=== PATIENT | female | born 1995 | race Caucasian/White ===

== ENCOUNTER 2016-10-29 07:42 | Emergency (ER) | payer OTHER ==
[2016-10-29] MEDS ORDERED: IPRATROPIUM-ALBUTEROL 3 ML NEB INHALATION STA (08:19)
--- NOTE | 2016-10-29 08:21 | ED ---
General Adult HPI - General Chief complaint: Shortness of Breath Stated complaint: SOB Time Seen by Provider: 10/29/16 08:08 Source: patient, RN notes reviewed Mode of arrival: ambulatory Limitations: no limitations - History of Present Illness Initial comments: Patient is a 21-year-old female presents to the emergency room for evaluation of cough. Patient states symptoms began yesterday. Patient states this morning while she was at work she was still not feeling well, so she took a leftover antibiotic that she had in the past. Patient states the antibiotic did not help so she came here. Patient states after she coughs she feels short of breath. Patient states she is coughing up mucus. Patient does state she has a history of asthma. Patient denies currently smoking. Patient denies fevers or chills. Patient denies headache or dizziness. Patient does admit to sinus congestion minor throat pain and bilateral ear pain. Patient denies chest pain. Patient denies nausea or vomiting. Patient denies abdominal pain. - Related Data Previous Rx's Medication Instructions Recorded Fluticasone Propionate [Flonase 1 spray EA NOSTRIL DAILY 7 Days 10/29/16 Allergy Relief] guaiFENesin [Mucinex] 1,200 mg PO BID 7 Days 10/29/16 predniSONE 40 mg PO DAILY 5 Days 10/29/16 Allergies Allergy/AdvReac Type Severity Reaction Status Date / Time codeine Allergy Unknown Verified 10/29/16 08:29 erythromycin base Allergy Rash/Hives Verified 10/29/16 08:29 Penicillins Allergy Rash/Hives Verified 10/29/16 08:29 sulfamethoxazole Allergy Rash/Hives Verified 10/29/16 08:29 [From Bactrim] trimethoprim [From Bactrim] Allergy Rash/Hives Verified 10/29/16 08:29 Review of Systems ROS Statement: Those systems with pertinent positive or pertinent negative responses have been documented in the HPI. ROS Other: All systems not noted in ROS Statement are negative. Past Medical History Past Medical History: Asthma Additional Past Medical History / Comment(s): migraines History of Any Multi-Drug Resistant Organisms: None Reported Past Surgical History: No Surgical Hx Reported Past Psychological History: Anxiety Smoking Status: Former smoker Past Alcohol Use History: Occasional Past Drug Use History: None Reported General Exam - General Exam Comments Initial Comments: Sitting in exam room, no respiratory distress. Limitations: no limitations General appearance: alert, in no apparent distress Head exam: Present: atraumatic, normocephalic, normal inspection Eye exam: Present: normal appearance, PERRL, EOMI Pupils: Present: normal accommodation ENT exam: Present: normal exam, normal oropharynx, mucous membranes moist, TM's normal bilaterally, normal external ear exam Neck exam: Present: normal inspection, full ROM. Absent: tenderness, lymphadenopathy Respiratory exam: Present: normal lung sounds bilaterally. Absent: respiratory distress Cardiovascular Exam: Present: regular rate, normal rhythm, normal heart sounds Extremities exam: Present: normal inspection Back exam: Present: normal inspection Neurological exam: Present: alert, oriented X3, CN II-XII intact, normal gait Psychiatric exam: Present: normal affect, normal mood Skin exam: Present: warm, dry, intact, normal color. Absent: rash Course Vital Signs 10/29/16 10/29/16 10/29/16 07:43 08:33 08:39 Temperature 97.5 F L Pulse Rate 77 80 84 Respiratory 20 Rate Blood Pressure 150/70 O2 Sat by Pulse 100 Oximetry 10/29/16 09:20 Temperature 97.8 F Pulse Rate 73 Respiratory 18 Rate Blood Pressure 119/75 O2 Sat by Pulse 98 Oximetry Medical Decision Making - Medical Decision Making Patient is a 21-year-old female presents emergency room for evaluation and sinus congestion and cough. Chest x-ray shows no acute findings. Will send patient home on prednisone, Mucinex and Flonase as needed. Advised patient to follow-up with primary care provider if symptoms are not improving in 7 days. Patient states she understands everything that was discussed with her. Return parameters discussed. Case discussed Dr. Lyles. - Radiology Data Radiology results: report reviewed, image reviewed Disposition Clinical Impression: Bronchitis Disposition: HOME SELF-CARE Condition: Good Instructions: Acute Bronchitis (ED) Additional Instructions: Take medications as directed. Please follow up with primary care provider 24- 48 hours. If any new symptom arises or symptoms worsen, return to ER as soon as possible. Prescriptions: Fluticasone Propionate [Flonase Allergy Relief] 1 spray EA NOSTRIL DAILY 7 Days guaiFENesin [Mucinex] 1,200 mg PO BID 7 Days predniSONE 40 mg PO DAILY 5 Days Referrals: Eugene Romero MD [Primary Care Provider] - 1-2 days Time of Disposition: 09:08
--- NOTE | 2016-10-29 08:57 | XR ---
EXAMINATION TYPE: XR chest 2V DATE OF EXAM: 10/29/2016 8:50 AM CLINICAL HISTORY: Chest pain per order. Cough and shortness of breath per patient. TECHNIQUE: Frontal and lateral views of the chest are obtained. COMPARISON: Chest x-ray May 03, 2016 FINDINGS: There is no focal air space opacity, pleural effusion, or pneumothorax seen. The cardiac silhouette size is within normal limits. The osseous structures are intact. IMPRESSION: No acute cardiopulmonary process.
[2016-10-29 09:21] VITALS: BP 119/75; PULSE 73; RESP 18; TEMP 97.8
== END 2016-10-29 09:21 | disposition home or self-care (01) ==
LOC: EC 07:42
DX: J40 Bronchitis, not specified as acute or chronic (principal); Z88.0 Allergy status to penicillin; Z88.1 Allergy status to other antibiotic agents; Z88.2 Allergy status to sulfonamides; Z88.5 Allergy status to narcotic agent; Z87.891 Personal history of nicotine dependence
CPT/HCPCS: 71020; 94640; 99285

== ENCOUNTER → 2017-10-14 | Outpatient (CLI) | payer OTHER | END | disposition home or self-care (01) | LOC: LABWHC1 17:06 | PROVIDERS: ATTEND Obstetrics & Gynecology | DX: Z34.80 Encounter for supervision of other normal pregnancy, unspecified trimester (principal); Z3A.00 Weeks of gestation of pregnancy not specified | CPT/HCPCS: 36415; 84702; 86850; 86900; 86901 ==

== ENCOUNTER → 2017-10-22 | Outpatient (CLI) | payer OTHER ==
--- NOTE | 2017-10-22 15:28 | US ---
EXAMINATION TYPE: Transabdominal DATE OF EXAM: 09/02/17 COMPARISON: NONE CLINICAL HISTORY: Z36 Confirm [id number]; vaginal spotting EXAM PERFORMED: Transabdominal (TA) EXAM MEASUREMENTS: GESTATIONAL AGE / DATING Physician Established: Not yet established Dates by LMP: (11 weeks/0 days) EDC: 05/13/2018 Dates by First Scan: No previous; this is first scan Dates by Current Scan for: (8 weeks/6 days) EDC: 05/28/2018 MATERNAL ANATOMY Uterus: 11.5 x 7.3 x 6.0cm Right Ovary: 3.3 x 2.5 x 2.8cm Left Ovary: 2.4 x 1.9 x 1.8cm Post CDS / Adnexa: wnl Presence of free fluid: no Presence of corpus luteal cyst: may be in right ovary with small amount of peripheral ring of color f low = 2.9 x 1.9 x 1.9cm Presence of subchorionic bleed: no GESTATION / SURVEY CRL: 2.2cm (8 weeks/6 days) Yolk Sac (normal less than 6mm): 3.5mm Heart Rate: 178 bpm Rhythm: Normal IUP: Viable IUP Date of LMP: patient believed LMP was 08/06/2017 Beta HcG (if available): na IMPRESSION: Single, live IUP,8 weeks/6 days, EDC: 05/28/2018, [id number].
== END | disposition home or self-care (01) ==
LOC: RADUSWWP 14:12
PROVIDERS: ATTEND Obstetrics & Gynecology
DX: Z36.89 Encounter for other specified antenatal screening (principal); Z3A.08 8 weeks gestation of pregnancy
CPT/HCPCS: 76801

== ENCOUNTER → 2018-02-24 | Outpatient (CLI) | payer OTHER ==
[2018-02-24 10:36] LABS: HCT 32.6 % (34.0-46.0); HGB 11.1 gm/dL (11.4-16.0); MCH 29.7 pg (25.0-35.0); MCHC 34.1 g/dL (31.0-37.0); MCV 87.1 fL (80.0-100.0); Mean Platelet Volume 7.1; Platelet Count 288 k/uL (150-450); RBC 3.74 m/uL (3.80-5.40); WBC 11.4 k/uL (3.8-10.6)
== END | disposition home or self-care (01) ==
LOC: LABWHC1 09:04
PROVIDERS: ATTEND Obstetrics & Gynecology
DX: Z34.82 Encounter for supervision of other normal pregnancy, second trimester (principal)
CPT/HCPCS: 36415; 82950; 85027

== ENCOUNTER → 2018-03-02 | Outpatient (CLI) | payer OTHER ==
[2018-03-02 13:34] LABS: Glucose 3 Hour, Gest 76 mg/dL
== END ==
LOC: LABWHC1 08:30
PROVIDERS: ATTEND Obstetrics & Gynecology
DX: O24.419 Gestational diabetes mellitus in pregnancy, unspecified control (principal); Z3A.00 Weeks of gestation of pregnancy not specified
CPT/HCPCS: 36415; 82951; 82952

== ENCOUNTER 2018-05-07 16:34 | Inpatient (IN) | payer OTHER ==
[2018-05-07] MEDS ORDERED: LIDOCAINE 0.5% (PF) 5 MG/ML (50 ML SDV) SQ PRN (17:16)
[2018-05-07] MEDS ORDERED: METHYLERGONOVINE 0.2 MG/ML 1 ML AMP IM PRN (17:16)
[2018-05-07] MEDS ORDERED: CARBOPROST TROMETHAMINE 250 MCG/ML 1 ML AMP IM PRN (17:16)
[2018-05-07] MEDS ORDERED: OXYTOCIN 10 UNIT/ML 1 ML VIAL IM PRN (17:16)
[2018-05-07] MEDS ORDERED: TERBUTALINE 1 MG/ML VIAL SQ PRN (17:16)
[2018-05-07] MEDS ORDERED: OXYTOCIN 20 UNITS/1000 ML NS 1,000 ML IV SCH (17:30)
[2018-05-07] MEDS: LACTATED RINGERS 1,000 ML IV SCH ×2 (17:43→21:59)
[2018-05-07 17:48] LABS: Appearance,Urine Clear (Clear); Bilirubin,Urine Negative (Negative); Blood,Urine Negative (Negative); Color,Urine Yellow; Glucose,Urine (UA) Negative (Negative); Ketones,Urine Negative (Negative); Leukocyte Esterase,Urine Negative (Negative); Nitrite,Urine Negative (Negative); PH, Urine 6.5 (5.0-8.0); Protein,Urine Trace (Negative); Specific Gravity,Urine 1.013 (1.001-1.035); Urobilinogen,Urine <2.0 mg/dL (<2.0)
--- NOTE | 2018-05-07 17:52 | P.HPOB ---
History of Present Illness H&P Date: 05/07/18 Chief Complaint: Gestational hypertension. This patient is a pleasant 23-year-old 2 para 1 female estimated date of confinement 05/28/2018 estimated gestational age 37-0/7 weeks who presented to my office today for routine visit was found to have elevated blood pressure 142/96 and 120/90. Patient's history is such that her previous with Dr. Hernandez she developed gestational hypertension at 40 weeks. Patient has no other history of hypertension. Patient has had a headache on and off first couple weeks otherwise without symptomatology. Patient's care otherwise has been uncomplicated. Review of Systems Constitutional: Reports chronic headaches Genitourinary: Reports Menstruation: Reports amenorrhea Past Medical History Past Medical History: Asthma Additional Past Medical History / Comment(s): migraines History of Any Multi-Drug Resistant Organisms: None Reported Past Surgical History: No Surgical Hx Reported Past Anesthesia/Blood Transfusion Reactions: No Reported Reaction Past Psychological History: Anxiety Smoking Status: Former smoker Past Alcohol Use History: None Reported Past Drug Use History: None Reported Medications and Allergies Home Medications Medication Instructions Recorded Confirmed Type Albuterol Inhaler [Ventolin Hfa 1 puff PO DIRECTED PRN 05/07/18 05/07/18 History Inhaler] Beclomethasone Dipropionate [Qvar 1 puff PO BID 05/07/18 05/07/18 History 40 mcg Redihaler] Allergies Allergy/AdvReac Type Severity Reaction Status Date / Time erythromycin base Allergy Rash/Hives Verified 05/07/18 16:48 Penicillins Allergy Rash/Hives Verified 05/07/18 16:48 sulfamethoxazole Allergy Rash/Hives Verified 05/07/18 16:48 [From Bactrim] trimethoprim [From Bactrim] Allergy Rash/Hives Verified 05/07/18 16:48 Exam Intake and Output 05/07/18 05/07/18 05/07/18 06:59 14:59 22:59 Other: Weight 83.461 kg - OBG Physical Exam Abdomen: bowel sounds normal, no diffuse tenderness, no bruit present, no guarding noted, no hepatomegaly, no splenomegaly, no mass Vulva: both: normal Cervix: no lesion (Cervix is 2 simmers dilated 50% effaced and soft.), no discharge Uterus: enlarged (Fundal height is 38 cm) Results blood work shows she is A positive, rubella low positive, RPR nonreactive, HIV nonreactive, hepatitis B negative, Glucola was elevated 155 with a normal three-hour gtt., group B strep was negative (patient has a history of positive group B strep with her first ) ultrasounds have been normal. Assessment and Plan Assessment: This patient is a pleasant 23-year-old 2 para 1 female 37-0/7 weeks gestation who is admitted to labor and delivery with persistent mild blood pressure elevations greater than 140/90 consistent with gestational hypertension. Patient this time does not appear to have preeclampsia but due to her recurrent elevated blood pressures, current recommendations are to proceed with delivery at this time. I discussed this with the patient and her partner and plan is to proceed with Pitocin induction of labor and anticipate vaginal delivery. Patient has a history of positive strep with her first although she is negative this so we will prophylactically treat with clindamycin. (1) 37 weeks gestation of Current Visit: Yes Status: Acute Code(s): Z3A.37 - 37 WEEKS GESTATION OF SNOMED Code(s): 23510011 (2) Gestational hypertension Current Visit: Yes Status: Acute Code(s): O13.9 - GESTATIONAL HTN W/O SIGNIFICANT PROTEINURIA, UNSP TRIMESTER SNOMED Code(s): 958070104 (3) History of group B Streptococcus (GBS) infection Current Visit: Yes Status: Acute Code(s): Z86.19 - PERSONAL HISTORY OF OTHER INFECTIOUS AND PARASITIC DISEASES SNOMED Code(s): 620839399
[2018-05-07] MEDS: CLINDAMYCIN 900 MG in DEXTROSE 5% IN WATER 50 ML IVPB SCH ×2 (17:56)
[2018-05-07 17:58] LABS: Basophils % (A) 0 %; Eosinophils # (A) 0.1 k/uL (0-0.7); Eosinophils % (A) 0 %; HCT 36.7 % (34.0-46.0); HGB 11.6 gm/dL (11.4-16.0); Lymphocytes # (A) 2.1 k/uL (1.0-4.8); Lymphocytes % (A) 18 %; MCH 26.7 pg (25.0-35.0); MCHC 31.7 g/dL (31.0-37.0); MCV 84.4 fL (80.0-100.0); Mean Platelet Volume 7.9; Monocytes # (A) 0.4 k/uL (0-1.0); Monocytes % (A) 3 %; Neutrophils # (A) 8.9 k/uL (1.3-7.7); Neutrophils % (A) 77 %; Platelet Count 333 k/uL (150-450); RBC 4.35 m/uL (3.80-5.40); RDW 14.6 % (11.5-15.5); WBC 11.7 k/uL (3.8-10.6)
[2018-05-07 18:11] LABS: Uric Acid 7.2 mg/dL (3.7-7.4)
[2018-05-07 18:44] VITALS: BMI 33.5
[2018-05-07] MEDS ORDERED: ROPIVACAINE 5MG/ML 20ML VIAL ONE (21:30)
[2018-05-07] MEDS ORDERED: fentaNYL (PF) 50 MCG/ML 5 ML AMP ONE (21:30)
[2018-05-07] MEDS ORDERED: SODIUM CHLORIDE 0.9% 100 ML BAG ONE (21:30)
[2018-05-08] MEDS ORDERED: ceFAZolin 2,000 MG in DEXTROSE/WATER 1 50ML.BAG IVPB STA (01:24)
[2018-05-08] MEDS ORDERED: ACETAMINOPHEN IV (For NPO) 1,000 MG in EMPTY BAG 1 BAG IVPB STA (01:25)
[2018-05-08] MEDS ORDERED: ceFAZolin IN SWFI 2 GM/20 ML SYRINGE IVP STA (01:30)
[2018-05-08] MEDS: CLINDAMYCIN 900 MG in DEXTROSE 5% IN WATER 50 ML IVPB SCH ×2 (01:54)
--- NOTE | 2018-05-08 03:33 | P.PROBDLV ---
Vaginal Delivery Note - . Vaginal Delivery Note: Normal vaginal delivery viable male infant Apgars 8 and 9 delivery time is 0307 hrs. Please see dictated H&P for intimate details of this patient's admission. In brief summary this is a pleasant 23-year-old 2 para 1 female 37 weeks gestation admitted to the office yesterday with elevated blood pressures. Patient was sent to labor and delivery had continued blood pressure elevations with negative preeclampsia labs. Per current recommendations plan at this time was to proceed with delivery. Patient is a history of positive strep with a previous therefore is given clindamycin. She is artificial rupture membranes for clear fluid and Pitocin augmentation of labor. Patient does progress and at 4 cm she gets an epidural for pain control. At approximately 6 cm patient does develop a fever to 1013. Patient is given a dose of Ancef at this time and IV Tylenol. Patient approximately 1 hour later does get complete pushes the head to the perineum. Posterior perineum is supported we have controlled delivery of infant's head over the intact perineum. Mouth and nares are bulb suctioned. There is no evidence of a nuchal cord. With gentle downward traction within delivery the anterior posterior shoulder and rest this 's body. This is a vigorous viable male infant Apgars are 8 and 9 delivery time is 0307 hrs. after delivery of the the cord is allowed quit pulsating is then doubly clamped and cut. The cord appears to be trivascular. The placenta is then spontaneously delivered intact. Inspection of perineum shows a superficial left periurethral lacerations not require repair. Estimated blood loss is 100 mL. All counts are correct 3. Infant and mother are stable delivery room. All continue on some oral antibiotics due to her intrapartum fever.
[2018-05-08] MEDS ORDERED: diphenhydrAMINE 50 MG/ML 1 ML VIAL IVP PRN (03:34)
[2018-05-08] MEDS ORDERED: BISACODYL 10 MG SUPP RECTAL PRN (03:34)
[2018-05-08] MEDS ORDERED: BENZOCAINE/MENTHOL SPRAY 1 GM/SPRAY AEROSOL TOPICAL PRN (03:34)
[2018-05-08] MEDS ORDERED: WITCH HAZEL 1 EACH MED..PAD TOPICAL PRN (03:34)
[2018-05-08] MEDS ORDERED: SIMETHICONE 80 MG CHEWABLE PO PRN (03:34)
[2018-05-08] MEDS ORDERED: LANOLIN CREAM 5 GM TUBE TOPICAL PRN (03:34)
[2018-05-08] MEDS ORDERED: ZOLPIDEM 5 MG TAB PO PRN (03:34)
[2018-05-08] MEDS ORDERED: diphenhydrAMINE 25 MG CAP PO PRN (03:34)
[2018-05-08] MEDS ORDERED: HYDROCORTISONE 2.5% RECTAL CREAM 30 GM TUBE RECTAL PRN (03:34)
[2018-05-08] MEDS ORDERED: OXYTOCIN 20 UNITS/1000 ML NS 1,000 ML IV SCH (03:45)
[2018-05-08] MEDS: IBUPROFEN 600 MG TAB PO PRN ×3 (03:56→16:42)
[2018-05-08] MEDS: LACTATED RINGERS 1,000 ML IV SCH (04:52)
[2018-05-08] MEDS: SENNOSIDES-DOCUSATE SODIUM 1 EACH TAB PO SCH ×2 (08:47→19:46)
[2018-05-08] MEDS: CEPHALEXIN 500 MG CAP PO SCH ×4 (08:51→22:07)
[2018-05-08] MEDS: ACETAMINOPHEN TAB 325 MG TAB PO PRN ×2 (13:38→19:44)
[2018-05-08] MEDS ORDERED: MEASLES-MUMPS-RUBELLA VACC/PF 12,500 UNIT/0.5 ML VIAL SQ ONE (20:56)
[2018-05-09] MEDS: IBUPROFEN 600 MG TAB PO PRN ×2 (06:25→14:35)
[2018-05-09 07:22] LABS: Basophils % (A) 0 %; Eosinophils # (A) 0.2 k/uL (0-0.7); Eosinophils % (A) 1 %; HCT 31.4 % (34.0-46.0); HGB 10.1 gm/dL (11.4-16.0); Lymphocytes # (A) 2.7 k/uL (1.0-4.8); Lymphocytes % (A) 23 %; MCHC 32.1 g/dL (31.0-37.0); MCV 87.3 fL (80.0-100.0); Mean Platelet Volume 8.1; Monocytes # (A) 0.4 k/uL (0-1.0); Monocytes % (A) 4 %; Neutrophils # (A) 8.1 k/uL (1.3-7.7); Neutrophils % (A) 70 %; Platelet Count 215 k/uL (150-450); RDW 14.9 % (11.5-15.5); WBC 11.5 k/uL (3.8-10.6)
[2018-05-09] MEDS: SENNOSIDES-DOCUSATE SODIUM 1 EACH TAB PO SCH (09:09)
[2018-05-09] MEDS: CEPHALEXIN 500 MG CAP PO SCH ×4 (09:09→22:30)
[2018-05-09] MEDS: ACETAMINOPHEN TAB 325 MG TAB PO PRN ×2 (10:07→18:29)
--- NOTE | 2018-05-09 11:57 | P.PNOBGVD ---
Subjective - Subjective Principal diagnosis: day 1 Interval history: Overall patient is doing well. She has had 1 or 2 elevations in her blood pressures since delivery, latest increase was 156/96. She is asymptomatic no headache epigastric pain, no changes in her deep tendon reflexes and no visual changes. We'll continue to monitor this closely today with expectation that if it remains stable will plan discharged home tomorrow. All the questions are answered for her at this time. Other vital signs are stable. She is afebrile. Heart regular, lungs clear, extremities are without pain. Objective - Latest Vital Signs Latest vital signs: Vital Signs Temp Pulse Resp BP 05/09/18 08:20 138/81 05/09/18 08:00 98.1 F 59 L 18 151/96 05/09/18 00:00 97.6 F 62 16 127/79 05/08/18 16:00 98.3 F 76 18 132/78 05/08/18 12:00 97.9 F 80 16 136/72 Intake and Output 05/08/18 05/09/18 05/09/18 22:59 06:59 14:59 Other: # Voids 1 2 - Exam Lungs: bilateral: normal Chest: Normal S1, Normal S2 Extremities: Present: normal Abdomen: Present: normal appearance, soft Uterus: Present: normal, firm - Labs Labs: Abnormal Lab Results - Last 24 Hours (Table) 05/09/18 Range/Units 06:12 WBC 11.5 H (3.8-10.6) k/uL RBC 3.60 L (3.80-5.40) m/uL Hgb 10.1 L (11.4-16.0) gm/dL Hct 31.4 L (34.0-46.0) % Neutrophils # 8.1 H (1.3-7.7) k/uL
[2018-05-10] MEDS: SENNOSIDES-DOCUSATE SODIUM 1 EACH TAB PO SCH ×3 (00:05→19:32)
[2018-05-10] MEDS: CEPHALEXIN 500 MG CAP PO SCH ×4 (09:12→22:09)
[2018-05-10] MEDS: IBUPROFEN 600 MG TAB PO PRN ×2 (09:12→19:31)
--- NOTE | 2018-05-10 09:59 | P.PNOBGVD ---
Subjective - Subjective Principal diagnosis: day 2: Gestational hypertension Interval history: Irina is seen and evaluated again today, her blood pressures are noted to have had to elevations of systolic greater than 160. She also has been having significant headaches particularly when the blood pressures are elevated. She relates that occasionally she'll have some alertness in her vision. She denies any epigastric pain and her deep tendon reflexes are +2 on the left lower extremity and upper extremities, however 3+ the right lower extremity. No clonus is noted. As a precaution we will repeat her preeclamptic labs and will initiate low-dose labetalol 100 mg twice a day to see if we can get her blood pressures a little better controlled. We'll plan to hold discharged today for same. Reevaluate through the day and into tomorrow based on symptoms and how she responds to medication. All questions were answered for her at this time. Otherwise her vital signs are stable. She is afebrile. Should her symptoms progress any further she may need to have magnesium sulfate added back into her regimen of medication for 24 hours. Certainly if any of her preeclamptic labs are elevated this will also need to be done. Patient reports: Reports appetite normal, Reports voiding normally, Reports pain well controlled, Reports ambulating normally [place]: doing well Objective - Latest Vital Signs Latest vital signs: Vital Signs Temp Pulse Resp BP 05/10/18 08:00 98.8 F 65 18 165/87 05/09/18 23:59 98.3 F 63 16 136/76 05/09/18 16:00 98.4 F 59 L 18 127/68 05/09/18 12:00 162/91 - Exam Lungs: bilateral: normal Chest: Normal S1, Normal S2 Extremities: Present: normal Abdomen: Present: normal appearance, soft Uterus: Present: normal, firm
[2018-05-10 10:31] LABS: ALT 31 U/L (9-52); AST 37 U/L (14-36); Blood Urea Nitrogen 17 mg/dL (7-17); LDH 736 U/L (313-618)
[2018-05-10 10:36] LABS: Basophils % (A) 0 %; Eosinophils # (A) 0.2 k/uL (0-0.7); Eosinophils % (A) 2 %; HCT 32.5 % (34.0-46.0); HGB 10.4 gm/dL (11.4-16.0); Lymphocytes % (A) 16 %; MCH 27.3 pg (25.0-35.0); MCV 85.4 fL (80.0-100.0); Mean Platelet Volume 7.6; Monocytes # (A) 0.4 k/uL (0-1.0); Monocytes % (A) 4 %; Neutrophils # (A) 9.5 k/uL (1.3-7.7); Neutrophils % (A) 77 %; Platelet Count 257 k/uL (150-450); RDW 14.9 % (11.5-15.5); WBC 12.3 k/uL (3.8-10.6)
[2018-05-10] MEDS: LABETALOL 100 MG TAB PO SCH ×2 (11:15→22:09)
[2018-05-10 11:56] LABS: Appearance,Urine Clear (Clear); Bacteria,Urine Rare /hpf; Bilirubin,Urine Negative (Negative); Blood,Urine Large (Negative); Color,Urine Light Yellow; Glucose,Urine (UA) Negative (Negative); Ketones,Urine Negative (Negative); Leukocyte Esterase,Urine Moderate (Negative); Mucus,Urine Rare /hpf; Nitrite,Urine Negative (Negative); PH, Urine 6.5 (5.0-8.0); Protein,Urine Trace (Negative); RBC,Urine 13 /hpf (0-5); Specific Gravity,Urine 1.002 (1.001-1.035); Squamous Epithelial Cell,Urine 2 /hpf (0-4); Urobilinogen,Urine <2.0 mg/dL (<2.0); WBC,Urine 16 /hpf (0-5)
[2018-05-10] MEDS ORDERED: LABETALOL 100 MG TAB PO SCH (21:00)
[2018-05-11] MEDS: IBUPROFEN 600 MG TAB PO PRN ×2 (02:13→09:45)
--- NOTE | 2018-05-11 06:26 | P.PNOBGVD ---
Subjective - Subjective Patient reports: Reports appetite normal, Reports voiding normally, Reports pain well controlled, Reports ambulating normally : doing well Objective - Latest Vital Signs Latest vital signs: Vital Signs Temp Pulse Resp BP Pulse Ox 05/11/18 02:20 97.7 F 80 16 133/81 100 05/10/18 22:46 98.0 F 74 18 132/80 98 05/10/18 20:26 98.2 F 72 18 161/88 05/10/18 18:15 128/67 05/10/18 17:15 154/83 05/10/18 16:00 98.3 F 67 18 118/66 05/10/18 15:00 160/83 05/10/18 14:00 155/91 05/10/18 12:30 116/60 05/10/18 08:00 98.8 F 65 18 165/87 - Exam Lungs: bilateral: normal Chest: Normal S1, Normal S2 Extremities: Present: normal Abdomen: Present: normal appearance, soft Uterus: Present: normal, firm - Labs Labs: Abnormal Lab Results - Last 24 Hours (Table) 05/10/18 05/10/18 05/10/18 Range/Units 10:07 10:07 11:30 WBC 12.3 H (3.8-10.6) k/uL Hgb 10.4 L (11.4-16.0) gm/dL Hct 32.5 L (34.0-46.0) % Neutrophils # 9.5 H (1.3-7.7) k/uL AST 37 H (14-36) U/L Lactate Dehydrogenase 736 H (313-618) U/L Urine Protein Trace H (Negative) Urine Blood Large H (Negative) Ur Leukocyte Esterase Moderate H (Negative) Urine RBC 13 H (0-5) /hpf Urine WBC 16 H (0-5) /hpf Urine Bacteria Rare H (None) /hpf Urine Mucus Rare H (None) /hpf Assessment and Plan Assessment: day #3. Patient is resting without new complaints. Blood pressures are now 130s over 80s on labetalol 100 mg by mouth twice a day. Patient does not complain of a headache at this time and in general is feeling well. She was having some elevated blood pressures and headaches over the weekend and therefore started on labetalol and this appears to be working. Repeat labs yesterday essentially were normal with elevated uric acid otherwise liver tests appears stable. My impression is that she had gestational hypertension and most likely early preeclampsia as well. At this point she does appear to be stable for discharge home on oral labetalol follow up with me short-term this Friday for her blood pressure check. She and I did discuss signs and symptoms to call our concerns. (1) 37 weeks gestation of Current Visit: Yes Status: Acute Code(s): Z3A.37 - 37 WEEKS GESTATION OF SNOMED Code(s): 92548641 (2) Gestational hypertension Current Visit: Yes Status: Acute Code(s): O13.9 - GESTATIONAL HTN W/O SIGNIFICANT PROTEINURIA, UNSP TRIMESTER SNOMED Code(s): 816715908 (3) History of group B Streptococcus (GBS) infection Current Visit: Yes Status: Acute Code(s): Z86.19 - PERSONAL HISTORY OF OTHER INFECTIOUS AND PARASITIC DISEASES SNOMED Code(s): 163276011
--- NOTE | 2018-05-11 06:28 | P.DS ---
Providers Date of admission: 05/07/18 17:05 Expected date of discharge: 05/11/18 Attending physician: Santo Kwok Primary care physician: Stated None - Discharge Diagnosis(es) (1) 37 weeks gestation of Current Visit: Yes Status: Acute (2) Gestational hypertension Current Visit: Yes Status: Acute (3) History of group B Streptococcus (GBS) infection Current Visit: Yes Status: Acute Hospital Course: Please see dictated H&P for intimate details of this patient's admission. Brief summary is a pleasant 23-year-old 2 para 1 female 37 weeks gestation who is admitted from my office for induction of labor secondary to gestational hypertension. Patient quickly goes on to have a vaginal delivery viable male . Please see dictated delivery note. Of note patient did have an intrapartum fever however this resolved after delivery she was placed on some oral antibiotics after receiving IV antibiotics. Patient began having elevated blood pressures and repeat preeclampsia labs showed elevated LDH and uric acid however liver test appeared stable. Patient was started on oral labetalol with resolution of her blood pressures. Patient was felt be stable for discharge home on oral labetalol follow up with me in 4 days. She and I did discuss indications to call. Procedures: Induction of labor and normal vaginal delivery Patient Condition at Discharge: Good Plan - Discharge Summary Discharge Rx Participant: Yes New Discharge Prescriptions: New Cephalexin [Keflex] 500 mg PO QID #28 cap Ibuprofen [Motrin] 600 mg PO Q6HR PRN #40 tab PRN Reason: Mild Pain Or Fever >= 100.5 Labetalol [Trandate] 100 mg PO BID #60 tab No Action Beclomethasone Dipropionate [Qvar 40 mcg Redihaler] 1 puff PO BID Albuterol Inhaler [Ventolin Hfa Inhaler] 1 puff PO DIRECTED PRN PRN Reason: Shortness Of Breath Discharge Medication List Albuterol Inhaler [Ventolin Hfa Inhaler] 1 puff PO DIRECTED PRN 05/07/18 [ History] Beclomethasone Dipropionate [Qvar 40 mcg Redihaler] 1 puff PO BID 05/07/18 [ History] Cephalexin [Keflex] 500 mg PO QID #28 cap 05/08/18 [Rx] Ibuprofen [Motrin] 600 mg PO Q6HR PRN #40 tab 05/08/18 [Rx] Labetalol [Trandate] 100 mg PO BID #60 tab 05/11/18 [Rx] Follow up Appointment(s)/Referral(s): Santo Kwok MD [STAFF PHYSICIAN] - 6 Weeks Patient Instructions/Handouts: Vaginal Delivery (DC), Preeclampsia (DC) Activity/Diet/Wound Care/Special Instructions: No intercourse or anything per vagina for 6 weeks. Please call if any fever, chills, excessive vaginal bleeding, and/or abdominal pain. Discharge Disposition: HOME SELF-CARE
[2018-05-11] MEDS: LABETALOL 100 MG TAB PO SCH (08:53)
[2018-05-11] MEDS: CEPHALEXIN 500 MG CAP PO SCH ×2 (08:53→13:58)
[2018-05-11 09:09] VITALS: BP 134/67; PULSE 74; RESP 18; TEMP 97.5
[2018-05-11] MEDS: SENNOSIDES-DOCUSATE SODIUM 1 EACH TAB PO SCH (09:46)
[2018-05-11] MEDS: ACETAMINOPHEN TAB 325 MG TAB PO PRN (14:01)
== END 2018-05-11 14:17 | disposition home or self-care (01) | DRG 806 ==
LOC: FBPOP 16:34 → 4FBP 17:05
PROVIDERS: ADMIT Obstetrics & Gynecology; ATTEND Obstetrics & Gynecology
PROC: 10E0XZZ Delivery of Products of Conception, External Approach (ICD-10-PCS; principal; 2018-05-08)
PROC: 10907ZC Drainage of Amniotic Fluid, Therapeutic from Products of Conception, Via Natural or Artificial Opening (ICD-10-PCS; 2018-05-08)
PROC: 3E033VJ Introduction of Other Hormone into Peripheral Vein, Percutaneous Approach (ICD-10-PCS; 2018-05-08)
PROC: 00HU33Z Insertion of Infusion Device into Spinal Canal, Percutaneous Approach (ICD-10-PCS; 2018-05-08)
PROC: 3E0R3BZ Introduction of Anesthetic Agent into Spinal Canal, Percutaneous Approach (ICD-10-PCS; 2018-05-08)
DX: O13.4 Gestational [pregnancy-induced] hypertension without significant proteinuria, complicating childbirth (principal); O75.2 Pyrexia during labor, not elsewhere classified; Z37.0 Single live birth; O99.354 Diseases of the nervous system complicating childbirth; O99.52 Diseases of the respiratory system complicating childbirth; O99.344 Other mental disorders complicating childbirth; O71.82 Other specified trauma to perineum and vulva; J45.909 Unspecified asthma, uncomplicated; F41.9 Anxiety disorder, unspecified; O99.62 Diseases of the digestive system complicating childbirth; G43.909 Migraine, unspecified, not intractable, without status migrainosus; K21.9 Gastro-esophageal reflux disease without esophagitis; Z3A.37 37 weeks gestation of pregnancy; Z87.891 Personal history of nicotine dependence; Z88.1 Allergy status to other antibiotic agents; Z88.0 Allergy status to penicillin; Z88.2 Allergy status to sulfonamides; Z86.19 Personal history of other infectious and parasitic diseases
CPT/HCPCS: 81001; 81003; 82565; 83615; 84450; 84460; 84520; 84550; 85025; 86850; 86900; 86901; 88307; 90471; 90707; 99213

== ENCOUNTER 2018-05-13 17:29 | Inpatient (IN) | payer OTHER ==
[2018-05-13] MEDS ORDERED: SODIUM CHLORIDE 0.9% 1,000 ML IV ONE (18:59)
[2018-05-13] MEDS ORDERED: LABETALOL SYRINGE 5 MG/ML IVP STA (18:59)
[2018-05-13] MEDS ORDERED: ACETAMINOPHEN TAB 500 MG TAB PO STA (19:01)
--- NOTE | 2018-05-13 19:03 | ED ---
Recheck HPI - General Chief Complaint: Recheck/Abnormal Lab/Rx Stated Complaint: post bp, weakness and swelling Time Seen by Provider: 05/13/18 18:46 Source: patient, RN notes reviewed, old records reviewed Mode of arrival: wheelchair Limitations: no limitations - History of Present Illness Initial Comments: Patient is 23-year-old female, female. She is 1 week after delivering and delivery. Her RETAIL MANAGER is Dr. Kwok. She presents today with chief complaint of headache, and symptoms of eclampsia. She states she's had some leg swelling bilaterally. She complains of a headache. She is treated for preeclampsia and was discharged from the hospital 2 days ago. She has been discharged on labetalol and has been taking her medication as prescribed. She reports the headache seemed to be worse today. She rates the emergency department and blood pressure was 179/86. Patient states that she has noticed some increased vaginal bleeding as well today. She denies any significant abdominal pain nausea or vomiting. - Related Data Home Medications Medication Instructions Recorded Confirmed Albuterol Inhaler [Ventolin Hfa 1 - 2 puff INHALATION RT-QID PRN 05/07/18 Inhaler] Beclomethasone Dipropionate [Qvar 1 puff INHALATION RT-BID 05/07/18 05/13/18 40 mcg Redihaler] Previous Rx's Medication Instructions Recorded Cephalexin [Keflex] 500 mg PO QID #28 cap 05/08/18 Ibuprofen [Motrin] 600 mg PO Q6HR PRN #40 tab 05/08/18 Labetalol [Trandate] 100 mg PO BID #60 tab 05/11/18 Allergies Allergy/AdvReac Type Severity Reaction Status Date / Time Penicillins Allergy Rash/Hives Verified 05/13/18 19:07 sulfamethoxazole Allergy Rash/Hives Verified 05/13/18 19:07 [From Bactrim] trimethoprim [From Bactrim] Allergy Rash/Hives Verified 05/13/18 19:07 erythromycin base AdvReac Nausea & Verified 05/13/18 19:07 Vomiting Review of Systems ROS Statement: Those systems with pertinent positive or pertinent negative responses have been documented in the HPI. ROS Other: All systems not noted in ROS Statement are negative. Past Medical History Past Medical History: Asthma Additional Past Medical History / Comment(s): migraines History of Any Multi-Drug Resistant Organisms: None Reported Past Surgical History: No Surgical Hx Reported Past Anesthesia/Blood Transfusion Reactions: No Reported Reaction Past Psychological History: Anxiety Smoking Status: Former smoker Past Alcohol Use History: None Reported Past Drug Use History: None Reported - Past Family History Mother Family Medical History: No Reported History General Exam - General Exam Comments Initial Comments: Well-appearing alert and oriented 23-year-old female. No significant distress. Limitations: no limitations General appearance: alert, in no apparent distress Head exam: Present: atraumatic, normocephalic, normal inspection Eye exam: Present: normal appearance, PERRL, EOMI. Absent: scleral icterus, conjunctival injection, periorbital swelling ENT exam: Present: normal exam, mucous membranes moist Neck exam: Present: normal inspection. Absent: tenderness, meningismus, lymphadenopathy Respiratory exam: Present: normal lung sounds bilaterally. Absent: respiratory distress, wheezes, rales, rhonchi, stridor Cardiovascular Exam: Present: regular rate, normal rhythm, normal heart sounds. Absent: systolic murmur, diastolic murmur, rubs, gallop, clicks GI/Abdominal exam: Present: soft, normal bowel sounds. Absent: distended, tenderness, guarding, rebound, rigid Extremities exam: Present: normal inspection, full ROM, normal capillary refill , pedal edema, other (1+ bilateral pedal edema.). Absent: tenderness, joint swelling, calf tenderness Back exam: Present: normal inspection Neurological exam: Present: alert Psychiatric exam: Present: normal affect, normal mood Skin exam: Present: warm, dry, intact, normal color. Absent: rash Course Vital Signs 05/13/18 17:35 Temperature 98.2 F Pulse Rate 67 Respiratory 20 Rate Blood Pressure 171/89 O2 Sat by Pulse 99 Oximetry Medical Decision Making - Medical Decision Making This is a 23-year-old female, one week , female. Her RETAIL MANAGER is Dr. Kwok. She presents today with headache, 1+ pedal edema. Sensory and for eclampsia. History for preeclampsia during last trimester of her . She delivered at 37 weeks. She does report she's noticed some vaginal bleeding but not a significant amount at this time. Patient has no lower abdominal pain. Her main complaint is a headache. She was given a dose of Tylenol, and blood pressure was elevated 170/100. She was given 20 mg of IV labetalol. Lab work was obtained. She does have an elevated LDH. She started on fluids. EKG was performed shows no significant changes. Patient was given 4 g of magnesium and maintenance will be ordered. Dr. Cantu discussed the case with Dr. Barron who will admit the Patient. - Lab Data Result diagrams: 05/13/18 19:24 05/13/18 19:24 Lab Results 05/13/18 05/13/18 05/13/18 Range/Units 19:24 19:24 19:24 WBC 11.4 H (3.8-10.6) k/uL RBC 3.77 L (3.80-5.40) m/uL Hgb 10.6 L (11.4-16.0) gm/dL Hct 32.1 L (34.0-46.0) % MCV 85.0 (80.0-100.0) fL MCH 28.1 (25.0-35.0) pg MCHC 33.0 (31.0-37.0) g/dL RDW 15.1 (11.5-15.5) % Plt Count 308 (150-450) k/uL Neutrophils % 76 % Lymphocytes % 16 % Monocytes % 4 % Eosinophils % 2 % Basophils % 0 % Neutrophils # 8.7 H (1.3-7.7) k/uL Lymphocytes # 1.9 (1.0-4.8) k/uL Monocytes # 0.4 (0-1.0) k/uL Eosinophils # 0.3 (0-0.7) k/uL Basophils # 0.0 (0-0.2) k/uL Sodium 141 (137-145) mmol/L Potassium 4.2 (3.5-5.1) mmol/L Chloride 112 H (98-107) mmol/L Carbon Dioxide 19 L (22-30) mmol/L Anion Gap 10 mmol/L BUN 17 (7-17) mg/dL Creatinine 0.75 (0.52-1.04) mg/dL Est GFR (CKD-EPI)AfAm >90 (>60 ml/min/1.73 sqM) Est GFR (CKD-EPI)NonAf >90 (>60 ml/min/1.73 sqM) Glucose 119 H (74-99) mg/dL Uric Acid 4.8 (3.7-7.4) mg/dL Calcium 8.8 (8.4-10.2) mg/dL Magnesium 2.3 (1.6-2.3) mg/dL Total Bilirubin 0.5 (0.2-1.3) mg/dL AST 42 H (14-36) U/L ALT 66 H (9-52) U/L Alkaline Phosphatase 146 H (38-126) U/L Lactate Dehydrogenase 959 H (313-618) U/L Total Protein 6.7 (6.3-8.2) g/dL Albumin 3.7 (3.5-5.0) g/dL Urine Color Urine Appearance (Clear) Urine pH (5.0-8.0) Ur Specific [place] (1.001-1.035) Urine Protein (Negative) Urine Glucose (UA) (Negative) Urine Ketones (Negative) Urine Blood (Negative) Urine Nitrite (Negative) Urine Bilirubin (Negative) Urine Urobilinogen (<2.0) mg/dL Ur Leukocyte Esterase (Negative) Urine RBC (0-5) /hpf Urine WBC (0-5) /hpf Ur Squamous Epith Cells (0-4) /hpf Urine Mucus (None) /hpf 05/13/18 Range/Units 19:35 WBC (3.8-10.6) k/uL RBC (3.80-5.40) m/uL Hgb (11.4-16.0) gm/dL Hct (34.0-46.0) % MCV (80.0-100.0) fL MCH (25.0-35.0) pg MCHC (31.0-37.0) g/dL RDW (11.5-15.5) % Plt Count (150-450) k/uL Neutrophils % % Lymphocytes % % Monocytes % % Eosinophils % % Basophils % % Neutrophils # (1.3-7.7) k/uL Lymphocytes # (1.0-4.8) k/uL Monocytes # (0-1.0) k/uL Eosinophils # (0-0.7) k/uL Basophils # (0-0.2) k/uL Sodium (137-145) mmol/L Potassium (3.5-5.1) mmol/L Chloride (98-107) mmol/L Carbon Dioxide (22-30) mmol/L Anion Gap mmol/L BUN (7-17) mg/dL Creatinine (0.52-1.04) mg/dL Est GFR (CKD-EPI)AfAm (>60 ml/min/1.73 sqM) Est GFR (CKD-EPI)NonAf (>60 ml/min/1.73 sqM) Glucose (74-99) mg/dL Uric Acid (3.7-7.4) mg/dL Calcium (8.4-10.2) mg/dL Magnesium (1.6-2.3) mg/dL Total Bilirubin (0.2-1.3) mg/dL AST (14-36) U/L ALT (9-52) U/L Alkaline Phosphatase (38-126) U/L Lactate Dehydrogenase (313-618) U/L Total Protein (6.3-8.2) g/dL Albumin (3.5-5.0) g/dL Urine Color Light Yellow Urine Appearance Clear (Clear) Urine pH 6.0 (5.0-8.0) Ur Specific [place] 1.016 (1.001-1.035) Urine Protein Negative (Negative) Urine Glucose (UA) Negative (Negative) Urine Ketones Negative (Negative) Urine Blood Moderate H (Negative) Urine Nitrite Negative (Negative) Urine Bilirubin Negative (Negative) Urine Urobilinogen <2.0 (<2.0) mg/dL Ur Leukocyte Esterase Negative (Negative) Urine RBC 9 H (0-5) /hpf Urine WBC 3 (0-5) /hpf Ur Squamous Epith Cells <1 (0-4) /hpf Urine Mucus Rare H (None) /hpf 05/13/18 21:10 EKG shows normal sinus rhythm possible left atrial enlargement. Borderline EKG. Ventricular rate 60 bpm. Was 136 most seconds. QRS duration 94 ms. QT QTc is 408 ms. Disposition Clinical Impression: Eclampsia Disposition: ADMITTED IP TO THIS HOSP Condition: Good Is patient prescribed a controlled substance at d/c from ED?: No Referrals: None,Stated [REFERRING] - 1-2 days Time of Disposition: 21:11
[2018-05-13] MEDS: SODIUM CHLORIDE 0.9% 1,000 ML IV SCH (19:36)
[2018-05-13 19:43] LABS: Basophils % (A) 0 %; Eosinophils # (A) 0.3 k/uL (0-0.7); Eosinophils % (A) 2 %; HCT 32.1 % (34.0-46.0); HGB 10.6 gm/dL (11.4-16.0); Lymphocytes # (A) 1.9 k/uL (1.0-4.8); Lymphocytes % (A) 16 %; MCH 28.1 pg (25.0-35.0); Mean Platelet Volume 7.4; Monocytes # (A) 0.4 k/uL (0-1.0); Monocytes % (A) 4 %; Neutrophils # (A) 8.7 k/uL (1.3-7.7); Neutrophils % (A) 76 %; Platelet Count 308 k/uL (150-450); RBC 3.77 m/uL (3.80-5.40); RDW 15.1 % (11.5-15.5); WBC 11.4 k/uL (3.8-10.6)
[2018-05-13 19:51] LABS: ALT 66 U/L (9-52); AST 42 U/L (14-36); Albumin 3.7 g/dL (3.5-5.0); Alkaline Phosphatase 146 U/L (38-126); Anion Gap 10 mmol/L; Blood Urea Nitrogen 17 mg/dL (7-17); Calcium 8.8 mg/dL (8.4-10.2); Carbon Dioxide 19 mmol/L (22-30); Chloride 112 mmol/L (98-107); Glucose 119 mg/dL (74-99); LDH 959 U/L (313-618); Magnesium 2.3 mg/dL (1.6-2.3); Potassium 4.2 mmol/L (3.5-5.1); Sodium 141 mmol/L (137-145); Total Bilirubin 0.5 mg/dL (0.2-1.3); Total Protein 6.7 g/dL (6.3-8.2)
[2018-05-13] MEDS ORDERED: hydrALAZINE HCL 20 MG/ML 1 ML VIAL IVP STA (20:42)
[2018-05-13 20:49] LABS: Appearance,Urine Clear (Clear); Bilirubin,Urine Negative (Negative); Blood,Urine Moderate (Negative); Color,Urine Light Yellow; Glucose,Urine (UA) Negative (Negative); Ketones,Urine Negative (Negative); Leukocyte Esterase,Urine Negative (Negative); Mucus,Urine Rare /hpf; Nitrite,Urine Negative (Negative); Protein,Urine Negative (Negative); RBC,Urine 9 /hpf (0-5); Specific Gravity,Urine 1.016 (1.001-1.035); Squamous Epithelial Cell,Urine <1 /hpf (0-4); Urobilinogen,Urine <2.0 mg/dL (<2.0)
[2018-05-13] MEDS: MAGNESIUM SULFATE-D5W PMX 1 GM in DEXTROSE/WATER 1 100ML.BAG IVPB SCH ×4 (21:09→23:43)
[2018-05-13] MEDS ORDERED: KETOROLAC 30 MG/ML 1 ML VIAL IVP PRN (21:11)
[2018-05-13] MEDS ORDERED: ONDANSETRON 4 MG/2 ML VIAL IVP PRN (21:11)
[2018-05-13] MEDS ORDERED: IBUPROFEN 400 MG TAB PO PRN (21:11)
[2018-05-13] MEDS ORDERED: NALOXONE 0.4 MG/ML 1 ML VIAL IV PRN (21:11)
[2018-05-13] MEDS ORDERED: FUROSEMIDE 10 MG/ML 2 ML VIAL IV ONE (22:59)
[2018-05-13] MEDS ORDERED: LABETALOL 5 MG/ML VIAL MDV IVP PRN ×3 (23:01)
[2018-05-13] MEDS ORDERED: CALCIUM CHLORIDE 500 MG in SODIUM CHLORIDE 0.9% 50 ML IVPB ONE (23:01)
[2018-05-13] MEDS ORDERED: hydrALAZINE HCL 20 MG/ML 1 ML VIAL IVP PRN (23:01)
--- NOTE | 2018-05-13 23:10 | P.HPOB ---
History of Present Illness H&P Date: 05/13/18 Chief Complaint: Late onset preeclampsia Maria Del Rosario is a 23-year-old female who delivered a baby on 05 08 for preeclampsia. She was admitted and induced due to abnormal blood pressures that were initially evaluated in the office. She had no problems really with labor and delivered a viable baby without difficulty and then was monitored closely . Her blood pressures at that time were essentially stable she did have what sounds like a couple of slightly elevated blood pressures and she was started on labetalol 100 mg twice daily. She relates that she had been taking this medication as prescribed but earlier this afternoon she said that she got very hot and dizzy and her vision began to blur badly and then she started getting a severe headache. She was brought to the emergency room were initial blood pressures were in the 170s over 90s and concern over preeclampsia was made. Labs were obtained and did show mild elevations of both her AST and ALTs. She is also noted to have a grossly elevated LDH level, however due to cellular changes during the labor and delivery process it is difficult to say how reliable this is a strict marker for preeclampsia in the setting. She is also noted to have no protein in her urine, however protein in the urine remained not be is reliable at this time either. At my evaluation she relates that her headache has resolved since she was given Apresoline in the emergency room. She was due to have her labetalol dose at 9 PM but at this time her blood pressure is 128/80 and I would be hesitant to give any medicine at this time with concerns over dropping her blood pressure too low. We have initiated magnesium sulfate therapy, however the emergency room did give her a very large bolus of fluid before sending her to labor and delivery she did receive 1 g of next sulfate in the emergency room and rather than give the typical 4 g bolus will plan to just start her at 2 g/h as a precaution against pulmonary edema and we'll also because she has 2+ pitting edema give her 10 mg of Lasix IV and start a Albarran catheter for close monitoring of her eyes and nose. Typically I would not give Lasix and allow her to have the fluid, normally, but her BUN/creatinine creatinine are both within the normal range and with the extra fluid provided by the emergency room I am concerned that we could potentially put her into flash pulmonary edema. We'll likely plan to give her normal dose of antihypertensive medication some time later this evening. It is noted that her abdomen is soft her uterus is firm she voices no complaints of any significant lochia. She does again have 2+ pitting edema in her externus bilaterally and also has +3 out of 4 deep tendon reflexes bilaterally. I did have a long discussion with she and her mother about risks of preeclampsia and our main concern being protection of seizures and that we would be at least relatively aggressive in trying to make sure that she doesn't have any seizures and that controlling her blood pressure while important isn't the end goal since realistically some people can even have seizures with normal blood pressures during preeclampsia, the Gold really is to have reduction in her neurologic symptoms to try and protect her from the seizures. All questions were answered for both she and her mother and will assume care in this pleasant young mother in what is now a relatively stable but guarded position. Past Medical History Past Medical History: Asthma Additional Past Medical History / Comment(s): migraines History of Any Multi-Drug Resistant Organisms: None Reported Past Surgical History: No Surgical Hx Reported Past Anesthesia/Blood Transfusion Reactions: No Reported Reaction Past Psychological History: Anxiety Smoking Status: Former smoker Past Alcohol Use History: None Reported Past Drug Use History: None Reported - Past Family History Mother Family Medical History: No Reported History Medications and Allergies Home Medications Medication Instructions Recorded Confirmed Type Albuterol Inhaler [Ventolin Hfa 1 - 2 puff INHALATION RT-QID PRN 05/07/18 History Inhaler] Beclomethasone Dipropionate [Qvar 1 puff INHALATION RT-BID 05/07/18 05/13/18 History 40 mcg Redihaler] Cephalexin [Keflex] 500 mg PO QID #28 cap 05/08/18 05/13/18 Rx Ibuprofen [Motrin] 600 mg PO Q6HR PRN #40 tab 05/08/18 05/13/18 Rx Labetalol [Trandate] 100 mg PO BID #60 tab 05/11/18 05/13/18 Rx Allergies Allergy/AdvReac Type Severity Reaction Status Date / Time Penicillins Allergy Rash/Hives Verified 05/13/18 19:07 sulfamethoxazole Allergy Rash/Hives Verified 05/13/18 19:07 [From Bactrim] trimethoprim [From Bactrim] Allergy Rash/Hives Verified 05/13/18 19:07 erythromycin base AdvReac Nausea & Verified 05/13/18 19:07 Vomiting Exam Osteopathic Statement: *. No significant issues noted on an osteopathic structural exam other than those noted in the History and Physical/Consult. Vital Signs Temp Pulse Resp BP Pulse Ox 05/13/18 22:33 98.3 F 05/13/18 22:01 102 H 18 132/76 100 05/13/18 21:30 100 20 130/91 100 05/13/18 21:15 87 21 127/71 98 05/13/18 20:45 62 18 156/106 98 05/13/18 20:30 62 18 161/99 98 05/13/18 20:16 70 20 170/97 05/13/18 19:54 65 19 156/98 99 05/13/18 19:35 61 19 153/93 99 05/13/18 19:15 62 20 157/94 100 05/13/18 17:35 98.2 F 67 20 171/89 99 Intake and Output 05/13/18 05/13/18 05/14/18 14:59 22:59 06:59 Other: Weight 83.461 kg - OBG Physical Exam Abdomen: bowel sounds normal, no diffuse tenderness, no bruit present, no guarding noted, no hepatomegaly, no splenomegaly, no mass Results Result Diagrams: 05/13/18 19:24 05/13/18 19:24 Abnormal Lab Results - Last 24 Hours (Table) 05/13/18 05/13/18 05/13/18 Range/Units 19:24 19:24 19:35 WBC 11.4 H (3.8-10.6) k/uL RBC 3.77 L (3.80-5.40) m/uL Hgb 10.6 L (11.4-16.0) gm/dL Hct 32.1 L (34.0-46.0) % Neutrophils # 8.7 H (1.3-7.7) k/uL Chloride 112 H (98-107) mmol/L Carbon Dioxide 19 L (22-30) mmol/L Glucose 119 H (74-99) mg/dL AST 42 H (14-36) U/L ALT 66 H (9-52) U/L Alkaline Phosphatase 146 H (38-126) U/L Lactate Dehydrogenase 959 H (313-618) U/L Urine Blood Moderate H (Negative) Urine RBC 9 H (0-5) /hpf Urine Mucus Rare H (None) /hpf
[2018-05-13 23:12] VITALS: BMI 32.9
[2018-05-13] MEDS: MAGNESIUM SULFATE-WATER PMX 20 GM in WATER FOR INJECTION 1 500ML.BAG IV SCH (23:22)
[2018-05-13] MEDS: LABETALOL 100 MG TAB PO SCH ×2 (23:40→23:47)
[2018-05-14] MEDS: MAGNESIUM SULFATE-D5W PMX 1 GM in DEXTROSE/WATER 1 100ML.BAG IVPB SCH (01:07)
[2018-05-14] MEDS: SODIUM CHLORIDE 0.9% 1,000 ML IV SCH ×4 (01:07→16:25)
[2018-05-14] MEDS: ACETAMINOPHEN TAB 325 MG TAB PO PRN ×2 (04:12→12:51)
--- NOTE | 2018-05-14 06:53 | P.PN ---
Progress Note - Text Progress Note Date: 05/14/18 Patient is seen and examined this morning, please see dictated H&P per Dr. Zhang and this patient's admission. Patient indicated to me that while driving yesterday she started developing some blurred vision and other symptomatology and therefore came to the emergency department. Patient was hypertensive at that time and was given a large bolus of IV fluid and antihypertensives. Patient has subsequently been given a dose of Lasix and placed on magnesium sulfate. She is having excellent urine output and blood pressure today is 106/61. Although she is hypotensive I believe that she needs to be continued on the oral labetalol and will continue the magnesium sulfate until 12:00. She does not have any further neurologic symptoms at this time. Going to repeat her labs this morning and continue inpatient observation. I have discussed treatment plan with the patient and her family and she is understanding of this plan.
[2018-05-14] MEDS: BUDESONIDE 0.5 MG/2 ML NEBU INHALATION SCH (08:00)
[2018-05-14] MEDS: LABETALOL 100 MG TAB PO SCH (08:23)
[2018-05-14] MEDS: MAGNESIUM SULFATE-WATER PMX 20 GM in WATER FOR INJECTION 1 500ML.BAG IV SCH (08:24)
[2018-05-14] MEDS: PANTOPRAZOLE 40 MG/10 ML VIAL IV SCH (08:35)
[2018-05-14 08:37] LABS: Basophils % (A) 0 %; Eosinophils # (A) 0.3 k/uL (0-0.7); Eosinophils % (A) 3 %; HCT 31.7 % (34.0-46.0); Lymphocytes # (A) 1.9 k/uL (1.0-4.8); Lymphocytes % (A) 19 %; MCHC 31.5 g/dL (31.0-37.0); MCV 85.8 fL (80.0-100.0); Mean Platelet Volume 7.1; Monocytes # (A) 0.5 k/uL (0-1.0); Monocytes % (A) 5 %; Neutrophils % (A) 71 %; Platelet Count 313 k/uL (150-450); RBC 3.69 m/uL (3.80-5.40); RDW 15.2 % (11.5-15.5); WBC 9.9 k/uL (3.8-10.6)
[2018-05-14 08:46] LABS: Bilirubin, Delta 0.3 mg/dL (0.0-0.2); Bilirubin,Unconjugated 0.1 mg/dL (0.0-1.1); Total Bilirubin 0.4 mg/dL (0.2-1.3); Total Protein 5.6 g/dL (6.3-8.2)
[2018-05-14 09:01] LABS: Magnesium 6.6 mg/dL (1.6-2.3)
[2018-05-14] MEDS: IBUPROFEN 600 MG TAB PO PRN ×2 (10:13→16:53)
[2018-05-14] MEDS ORDERED: WITCH HAZEL 1 EACH MED..PAD TOPICAL PRN ×2 (12:56→13:03)
[2018-05-14] MEDS ORDERED: LABETALOL 100 MG TAB PO STA (17:27)
[2018-05-14] MEDS: LABETALOL 200 MG TAB PO SCH (21:10)
[2018-05-15] MEDS: IBUPROFEN 600 MG TAB PO PRN ×3 (00:09→20:28)
--- NOTE | 2018-05-15 06:39 | P.PN ---
Progress Note - Text Progress Note Date: 05/15/18 Hospital day #2. Patient's blood pressures are 130-135/78-83. Patient did have 1 elevated blood pressure and her labetalol was increased to 200 mg twice a day. Patient this morning is without new complaints denies headache. Liver function tests yesterday returned to normal. It is my impression is she is stable to discharge home follow up with her blood pressure with me next week.
--- NOTE | 2018-05-15 06:45 | P.DS ---
Providers Date of admission: 05/13/18 21:11 Expected date of discharge: 05/15/18 Attending physician: David Zhang Primary care physician: Eugene Romero - Discharge Diagnosis(es) (1) Gestational hypertension Current Visit: No Status: Acute Hospital Course: Please see dictated H&P for intimate details of this patient's admission. Brief summary this is a pleasant 23-year-old female status post vaginal delivery of approximately week ago who was readmitted with complaints of blurred vision and elevated blood pressures. Patient was placed on magnesium sulfate and continued antihypertensive medications. Patient did have a large diuresis and liver function tests were initially mildly elevated but repeat were normal. Patient's felt be stable for discharge home on labetalol 200 mg by mouth twice a day follow up with me next week. Patient Condition at Discharge: Good Plan - Discharge Summary New Discharge Prescriptions: No Action Beclomethasone Dipropionate [Qvar 40 mcg Redihaler] 1 puff INHALATION RT-BID Albuterol Inhaler [Ventolin Hfa Inhaler] 1 - 2 puff INHALATION RT-QID PRN PRN Reason: Shortness Of Breath Cephalexin [Keflex] 500 mg PO QID #28 cap Ibuprofen [Motrin] 600 mg PO Q6HR PRN #40 tab PRN Reason: Mild Pain Or Fever >= 100.5 Labetalol [Trandate] 100 mg PO BID #60 tab Discharge Medication List Albuterol Inhaler [Ventolin Hfa Inhaler] 1 - 2 puff INHALATION RT-QID PRN [History] Beclomethasone Dipropionate [Qvar 40 mcg Redihaler] 1 puff INHALATION RT-BID 11/17 [History] Cephalexin [Keflex] 500 mg PO QID #28 cap 05/08/18 [Rx] Ibuprofen [Motrin] 600 mg PO Q6HR PRN #40 tab 05/08/18 [Rx] Labetalol [Trandate] 100 mg PO BID #60 tab 05/11/18 [Rx] Follow up Appointment(s)/Referral(s): Santo Kwok MD [STAFF PHYSICIAN] - 05/21/18 Patient Instructions/Handouts: Preeclampsia (DC) Discharge Disposition: HOME SELF-CARE
[2018-05-15] MEDS: BUDESONIDE 0.5 MG/2 ML NEBU INHALATION SCH (07:35)
[2018-05-15] MEDS: LABETALOL 200 MG TAB PO SCH (07:44)
[2018-05-15] MEDS: amLODIPine 5 MG TAB PO SCH (14:10)
[2018-05-15] MEDS: HYDROCHLOROTHIAZIDE 12.5 MG CAP PO SCH (14:10)
--- NOTE | 2018-05-15 14:57 | P.CRDCN ---
History of Present Illness History of present illness: This is a pleasant 23-year-old female past medical history significant for asthma and anxiety. She denies history of coronary artery disease, hypertension, dyslipidemia or diabetes mellitus. She has one week vaginal delivery. She states she presented to her [facility] at 37 weeks gestation and was found to have significant high blood pressure. At that time she was sent to the hospital and underwent induction. She was started on labetalol 100 mg twice a day and was discharged home on May 11. She returned to the hospital on May with symptoms of headache, blurred vision, increased weakness and lower extremity edema. Blood pressure was 171/ 89. Labetalol has been increased to 200 mg twice a day however her blood pressure remains elevated in the 170 systolic range. At the time of my exam she is seen resting comfortably in bed. She continues to complain of intermittent headache with some associated dizziness. She denies chest discomfort, shortness of breath or palpitations. The swelling in her legs has improved since admission.She is not currently breast-feeding and states she has no plans to start breast-feeding. EKG reveals sinus mechanism with no acute ST or T wave abnormalities noted. Laboratory data reviewed, WBC 9.9, hemoglobin 10, platelets 313, sodium 141, potassium 4.2, creatinine 0.75, magnesium 6.6 after receiving IV magnesium, AST on admission 42 down to 26, ALT on admission 66 down to 50, alkaline phosphatase on admission 146 down to 129. At the time of my exam: CONSTITUTIONAL: Denies fever. Denies chills. EYES: Denies blurred vision. Denies vision changes. Denies eye pain. EARS, NOSE, MOUTH & THROAT: Complains of headache. Denies sore throat. Denies ear pain. CARDIOVASCULAR: Denies chest pain. Denies shortness of breath. Denies orthopnea. Denies PND. Denies palpitations. RESPIRATORY: Denies cough. GASTROINTESTINAL: Denies abdominal pain. Denies diarrhea. Denies constipation. Denies nausea. Denies vomiting. MUSCULOSKELETAL: Denies myalgias. INTEGUMENTARY: Denies pruitis. Denies rash. NEUROLOGIC: Denies numbness. Denies tingling. Denies weakness. PSYCHIATRIC: Denies anxiety. Denies depression. ENDOCRINE: Denies fatigue. Denies weight change. Denies polydipsia. Denies polyurina. GENITOURINARY: Denies burning, hematuria or urgency with micturation. HEMATOLOGIC: Denies history of anemia. Denies bleeding. Blood pressure 172/85 heart rate 52 afebrile maintaining oxygen saturation on room air GENERAL: This is a 23-year-old female in no apparent distress at the time of my examination. HEENT: Head is atraumatic, normocephalic. Pupils are equal, round. Sclerae anicteric. Conjunctivae are clear. Mucous membranes of the mouth are moist. Neck is supple. There is no jugular venous distention. No carotid bruit is heard. LUNGS: Clear to auscultation no wheezes, rales or rhonchi. No chest wall tenderness is noted on palpation or with deep breathing. HEART: Regular rate and rhythm without murmurs, rubs or gallops. S1 and S2 heard. ABDOMEN: Soft, nontender. Bowel sounds are heard. No organomegaly noted. EXTREMITIES: No evidence of peripheral edema and no calf tenderness noted. VASCULAR: Radial and dorsalis pedis pulses palpated, no evidence of clubbing. NEUROLOGIC: Patient is awake, alert and oriented x3. ASSESSMENT hypertension History of anxiety and asthma PLAN Add amlodipine 5 mg daily and hydrochlorothiazide 12.5 mg daily. Obtain 2-D echocardiogram and Doppler study to assess cardiac structure and function and rule out cardiomyopathy. If blood pressure and echocardiogram are appropriate she is stable for discharge from a cardiac perspective. Recommend she obtain a blood pressure cuff to check her blood pressure at home on a daily basis and keep a log for review. We will advise the patient that these medications a be up to be cut back if her blood pressure becomes stable. Thank you kindly for this consultation. Nurse Practitioner note has been reviewed, I agree with a documented findings and plan of care. Patient was seen and examined. Past Medical History Past Medical History: Asthma Additional Past Medical History / Comment(s): migraines History of Any Multi-Drug Resistant Organisms: None Reported Past Surgical History: No Surgical Hx Reported Additional Past Surgical History / Comment(s): Left big toe surgery Past Anesthesia/Blood Transfusion Reactions: No Reported Reaction Past Psychological History: Anxiety Smoking Status: Former smoker Past Alcohol Use History: None Reported Past Drug Use History: None Reported - Past Family History Mother Family Medical History: No Reported History Additional Family Medical History / Comment(s): Epilepsy Father Family Medical History: Hypertension Medications and Allergies Home Medications Medication Instructions Recorded Confirmed Type Albuterol Inhaler [Ventolin Hfa 1 - 2 puff INHALATION RT-QID PRN 05/07/18 History Inhaler] Beclomethasone Dipropionate [Qvar 1 puff INHALATION RT-BID 05/07/18 05/13/18 History 40 mcg Redihaler] Cephalexin [Keflex] 500 mg PO QID #28 cap 05/08/18 05/13/18 Rx Ibuprofen [Motrin] 600 mg PO Q6HR PRN #40 tab 05/08/18 05/13/18 Rx Labetalol [Trandate] 100 mg PO BID #60 tab 05/11/18 05/13/18 Rx Allergies Allergy/AdvReac Type Severity Reaction Status Date / Time Penicillins Allergy Rash/Hives Verified 05/13/18 19:07 sulfamethoxazole Allergy Rash/Hives Verified 05/13/18 19:07 [From Bactrim] trimethoprim [From Bactrim] Allergy Rash/Hives Verified 05/13/18 19:07 erythromycin base AdvReac Nausea & Verified 05/13/18 19:07 Vomiting Physical Exam Vitals: Vital Signs Temp Pulse Resp BP Pulse Ox 05/15/18 11:57 172/85 05/15/18 11:00 162/72 05/15/18 09:51 165/85 05/15/18 08:58 170/77 05/15/18 08:17 178/90 05/15/18 08:16 176/108 05/15/18 07:40 98.3 F 52 L 18 151/85 05/15/18 04:00 98.0 F 71 16 135/83 99 05/15/18 00:00 98.4 F 77 18 130/78 99 05/14/18 20:00 98.0 F 70 18 144/84 98 05/14/18 16:00 97.8 F 69 16 163/94 100 Intake and Output 05/14/18 05/15/18 05/15/18 22:59 06:59 14:59 Output Total 250 Balance -250 Output: Urine 250 Results 05/14/18 07:44 05/13/18 19:24 Current Medications Generic Name Dose Route Start Last Admin Trade Name Freq PRN Reason Stop Dose Admin Acetaminophen 650 mg 05/13/18 21:11 05/14/18 12:51 Tylenol Tab PO 650 mg Q6HR PRN Administration Mild Pain or Fever > 100.5 Amlodipine Besylate 5 mg 05/15/18 13:15 05/15/18 14:10 Norvasc PO 5 mg DAILY EARL Administration Budesonide 0.5 mg 05/14/18 08:00 05/15/18 07:35 Pulmicort INHALATION Not Given RT-BID EARL Hydrochlorothiazide 12.5 mg 05/15/18 13:15 05/15/18 14:10 Hydrodiuril PO 12.5 mg DAILY EARL Administration Sodium Chloride 1,000 mls @ 100 mls/hr 05/13/18 19:00 05/14/18 05:12 Saline 0.9% IV Not Given .Q10H EARL Sodium Chloride 1,000 mls @ 20 mls/hr 05/13/18 23:30 05/14/18 16:25 Saline 0.9% IV 20 mls/hr .Q24H EARL Administration Ibuprofen 400 mg 05/13/18 21:11 Motrin PO Q6HR PRN Mild Pain or Fever > 100.5 Ibuprofen 600 mg 05/13/18 21:13 05/15/18 09:33 Motrin PO 600 mg Q6HR PRN Administration ModeratePain or Fever >= 100.5 Labetalol HCl 200 mg 05/14/18 21:00 05/15/18 07:44 Trandate PO 200 mg BID EARL Administration Naloxone HCl 0.2 mg 05/13/18 21:11 Narcan IV Q2M PRN Opioid Reversal Ondansetron HCl 4 mg 05/13/18 21:11 Zofran IVP Q8HR PRN Nausea And Vomiting Pantoprazole Sodium 40 mg 05/14/18 09:00 05/14/18 08:35 Protonix IV 40 mg DAILY EARL Administration Witch Danna 1 each 05/14/18 13:03 Tucks Medicated Pads TOPICAL DAILY PRN Wound Healing Protocol Intake and Output 05/14/18 05/15/18 05/15/18 22:59 06:59 14:59 Output Total 250 Balance -250 Output: Urine 250 05/14/18 07:44 05/13/18 19:24
[2018-05-15] MEDS ORDERED: HYDROCHLOROTHIAZIDE 12.5 MG CAP PO ONE (15:12)
--- NOTE | 2018-05-15 17:15 | ECHOF ---
Referral Reason:sob, MEASUREMENTS -------- HEIGHT: 157.5 cm WEIGHT: 81.6 kg BP: RVIDd: 2.6 cm (< 3.3) IVSd: 1.0 cm (0.6 - 1.1) LVIDd: 5.2 cm (3.9 - 5.3) LVPWd: 1.4 cm (0.6 - 1.1) IVSs: 1.2 cm LVIDs: 3.8 cm LVPWs: 1.4 cm LA Diam: 3.5 cm (2.7 - 3.8) Ao Diam: 2.2 cm (2.0 - 3.7) AV Cusp: 1.6 cm (1.5 - 2.6) LA Diam: 3.9 cm (2.7 - 3.8) MV EXCURSION: 17.310 mm (> 18.000) MV EF SLOPE: 121 mm/s (70 - 150) EPSS: 0.8 cm MV E Jeremías: 1.46 m/s MV DecT: 186 ms MV A Jeremías: 0.77 m/s MV E/A Ratio: 1.90 RAP: 5.00 mmHg RVSP: 64.39 mmHg FINDINGS -------- Sinus rhythm. This was a technically good study. LV size, wall thickness and systolic function are normal, with an EF greater than 55%. The left muna tricular size is normal. The right ventricle is normal in size. The left atrial size is normal. The right atrial size is normal. The aortic valve is trileaflet, and appears structurally normal. No aortic stenosis or regurgitation. The mitral valve leaflets are mildly thickened. [id number] mitral regurgitation is present. Moderate tricuspid regurgitation present. There is moderate pulmonary hypertension. The right muna tricular systolic pressure, as measured by Doppler, is 64.39mmHg. Trace/mild (physiologic) pulmonic regurgitation. The aortic root size is normal. There is no pericardial effusion. CONCLUSIONS -------- 1. Sinus rhythm. 2. LV size, wall thickness and systolic function are normal, with an EF greater than 55%. 3. The left ventricular size is normal. 4. The right ventricle is normal in size. 5. The left atrial size is normal. 6. The aortic valve is trileaflet, and appears structurally normal. No aortic stenosis or regurgitati on. 7. The mitral valve leaflets are mildly thickened. 8. Ksif-wu-ijtsxfyw mitral regurgitation is present. 9. Moderate tricuspid regurgitation present. 10. There is moderate pulmonary hypertension. 11. Trace/mild (physiologic) pulmonic regurgitation. 12. The aortic root size is normal. 13. There is no pericardial effusion. BRAKE MACHINE OPERATOR: Diamond Pham RDCS
--- NOTE | 2018-05-15 17:35 | CT ---
EXAMINATION TYPE: CT chest angio for PE DATE OF EXAM: 05/15/2018 COMPARISON: None HISTORY: r/o PE Hx eclampsia, gave May 08 CT DLP: 382.20 mGycm Automated exposure control for dose reduction was used. CONTRAST: CT Chest for pulmonary embolism performed with with IV Contrast, patient injected with 100 mL of Isov ue 370. There are 3-D post processed images. FINDINGS: The lungs are clear of infiltrate. There is no evidence of a pulmonary mass. There is mild subsegment al atelectasis at the posterior lung bases. There are small pleural effusions. Heart size is normal. There is no pericardial effusion. There is no mediastinal adenopathy. There are no hilar masses. Ther e is normal contrast opacification of the pulmonary arteries. I see no filling defect. There is no ev idence of aortic aneurysm or dissection. The bony thorax appears normal.. IMPRESSION: Small pleural effusions. Minimal subsegmental atelectasis at the lung bases. No evidence of pulmonary embolism.
[2018-05-15] MEDS: hydrALAZINE HCL 50 MG TAB PO SCH ×2 (19:03→23:22)
--- NOTE | 2018-05-15 19:08 | P.PN ---
Progress Note - Text Progress Note Date: 05/15/18 Patient's blood pressure was significantly elevated prior to discharge therefore I canceled patient's discharge and have consult to cardiology which is in the process of evaluating and treating her persistent and worsening hypertension.
[2018-05-15] MEDS: SODIUM CHLORIDE 0.9% 1,000 ML IV SCH ×2 (21:13→21:14)
[2018-05-15] MEDS: PANTOPRAZOLE 40 MG/10 ML VIAL IV SCH (21:14)
[2018-05-16] MEDS: LABETALOL 200 MG TAB PO SCH ×2 (00:08→09:35)
[2018-05-16] MEDS: ACETAMINOPHEN TAB 325 MG TAB PO PRN (00:10)
[2018-05-16] MEDS: SODIUM CHLORIDE 0.9% 1,000 ML IV SCH ×2 (01:48→08:39)
[2018-05-16 05:52] LABS: Basophils % (A) 0 %; Eosinophils # (A) 0.3 k/uL (0-0.7); Eosinophils % (A) 3 %; HCT 34.3 % (34.0-46.0); Lymphocytes # (A) 1.9 k/uL (1.0-4.8); Lymphocytes % (A) 24 %; MCH 27.3 pg (25.0-35.0); MCHC 32.2 g/dL (31.0-37.0); Monocytes # (A) 0.4 k/uL (0-1.0); Monocytes % (A) 6 %; Neutrophils # (A) 4.9 k/uL (1.3-7.7); Neutrophils % (A) 64 %; Platelet Count 356 k/uL (150-450); RBC 4.04 m/uL (3.80-5.40); RDW 15.1 % (11.5-15.5); WBC 7.6 k/uL (3.8-10.6)
[2018-05-16 06:05] LABS: Albumin 3.4 g/dL (3.5-5.0); Bilirubin, Delta 0.1 mg/dL (0.0-0.2); Bilirubin,Unconjugated 0.3 mg/dL (0.0-1.1); Total Bilirubin 0.4 mg/dL (0.2-1.3); Total Protein 6.2 g/dL (6.3-8.2)
--- NOTE | 2018-05-16 07:01 | P.PN ---
Progress Note - Text Progress Note Date: 05/16/18 Patient is is resting in slight well overnight. She states that she's having no new complaints. Blood pressures yesterday were significantly elevated however after medication changes per cardiology there are much better this morning of 110-130/60-70 range. At this point we will await cardiology evaluation for possible discharge or continued inpatient hospitalization for observation. Patient is cleared from an obstetrical standpoint for discharge.
[2018-05-16] MEDS ORDERED: hydrALAZINE HCL 50 MG TAB PO SCH (09:00)
[2018-05-16] MEDS: IBUPROFEN 600 MG TAB PO PRN (09:11)
[2018-05-16] MEDS: PANTOPRAZOLE 40 MG/10 ML VIAL IV SCH (09:12)
[2018-05-16] MEDS: amLODIPine 5 MG TAB PO SCH (11:50)
[2018-05-16] MEDS: HYDROCHLOROTHIAZIDE 12.5 MG CAP PO SCH (11:51)
[2018-05-16 11:58] VITALS: BP 128/76; PULSE 80; RESP 16; TEMP 97.7
--- NOTE | 2018-05-16 13:16 | P.PN ---
Subjective Progress Note Date: 05/16/18 This is a pleasant 23-year-old female past medical history significant for asthma and anxiety. She denies history of coronary artery disease, hypertension, dyslipidemia or diabetes mellitus. She has one week vaginal delivery. She states she presented to her [facility] at 37 weeks gestation and was found to have significant high blood pressure. At that time she was sent to the hospital and underwent induction. She was started on labetalol 100 mg twice a day and was discharged home on May 11. She returned to the hospital on May with symptoms of headache, blurred vision, increased weakness and lower extremity edema. Blood pressure was 171/ 89. Labetalol has been increased to 200 mg twice a day however her blood pressure remains elevated in the 170 systolic range. At the time of my exam she is seen resting comfortably in bed. She continues to complain of intermittent headache with some associated dizziness. She denies chest discomfort, shortness of breath or palpitations. The swelling in her legs has improved since admission.She is not currently breast-feeding and states she has no plans to start breast-feeding. EKG reveals sinus mechanism with no acute ST or T wave abnormalities noted. Laboratory data reviewed, WBC 9.9, hemoglobin 10, platelets 313, sodium 141, potassium 4.2, creatinine 0.75, magnesium 6.6 after receiving IV magnesium, AST on admission 42 down to 26, ALT on admission 66 down to 50, alkaline phosphatase on admission 146 down to 129. 05/16: This morning, patient's blood pressure is much improved at 115/75. Hydralazine, hydrochlorothiazide and Norvasc were held. Patient was given Lopressor 200 mg and blood pressure remained stable at 114/72. Echocardiogram reveals EF of 55%, moderate mitral regurgitation, moderate tricuspid regurgitation, moderate pulmonary hypertension. D-dimer from yesterday came back positive at 2.35 and CTA of the chest was negative for pulmonary embolism. Patient denies having any shortness of breath at rest. She denies having any lower extremity edema. We will plan to reevaluate blood pressure this afternoon and make further arrangements for medications at discharge. Discussed with Dr. Valverde. Patient is cleared from Dr. Valverde for discharge. At the time of my exam: CONSTITUTIONAL: Denies fever. Denies chills. EYES: Denies blurred vision. Denies vision changes. Denies eye pain. EARS, NOSE, MOUTH & THROAT: Denies headache. Denies sore throat. Denies ear pain. CARDIOVASCULAR: Denies chest pain. Denies shortness of breath. Denies orthopnea. Denies PND. Denies palpitations. RESPIRATORY: Denies cough. GASTROINTESTINAL: Denies abdominal pain. Denies diarrhea. Denies constipation. Denies nausea. Denies vomiting. MUSCULOSKELETAL: Denies myalgias. INTEGUMENTARY: Denies pruitis. Denies rash. NEUROLOGIC: Denies numbness. Denies tingling. Denies weakness. PSYCHIATRIC: Denies anxiety. Denies depression. ENDOCRINE: Denies fatigue. Denies weight change. Denies polydipsia. Denies polyurina. GENITOURINARY: Denies burning, hematuria or urgency with micturation. HEMATOLOGIC: Denies history of anemia. Denies bleeding. Blood pressure 128/76 heart rate 80 afebrile maintaining oxygen saturation on room air 98%. GENERAL: This is a 23-year-old female in no apparent distress at the time of my examination. HEENT: Head is atraumatic, normocephalic. Pupils are equal, round. Sclerae anicteric. Conjunctivae are clear. Mucous membranes of the mouth are moist. Neck is supple. There is no jugular venous distention. No carotid bruit is heard. LUNGS: Clear to auscultation no wheezes, rales or rhonchi. No chest wall tenderness is noted on palpation or with deep breathing. HEART: Regular rate and rhythm without murmurs, rubs or gallops. S1 and S2 heard. S2 is louder than S1. ABDOMEN: Soft, nontender. Bowel sounds are heard. No organomegaly noted. EXTREMITIES: No evidence of peripheral edema and no calf tenderness noted. VASCULAR: Radial and dorsalis pedis pulses palpated, no evidence of clubbing. NEUROLOGIC: Patient is awake, alert and oriented x3. ASSESSMENT hypertension Moderate pulmonary hypertension History of anxiety and asthma PLAN Patient will be continued on labetalol 100 mg twice daily and Norvasc 5 mg daily /twice daily. Hydralazine and hydrochlorothiazide will not be prescribed for home. Echocardiogram as above. Patient is cleared for discharge from cardiology following and afternoon blood pressure check and finalization of Norvasc dosing. Thank you kindly for this consultation. Nurse Practitioner note has been reviewed, I agree with a documented findings and plan of care. Patient was seen and examined. Objective - Vital Signs Vital signs: Vital Signs Temp 97.7 F 05/16/18 11:54 Pulse 80 05/16/18 11:54 Resp 16 05/16/18 11:54 BP 128/76 05/16/18 11:54 Pulse Ox 98 05/16/18 07:25 - Labs CBC & Chem 7: 05/16/18 05:27 05/13/18 19:24 Labs: Abnormal Lab Results - Last 24 Hours (Table) 05/15/18 05/16/18 05/16/18 Range/Units 16:08 05:27 05:27 Hgb 11.0 L (11.4-16.0) gm/dL D-Dimer 2.35 H (<0.60) mg/L FEU Total Protein 6.2 L (6.3-8.2) g/dL Albumin 3.4 L (3.5-5.0) g/dL
== END 2018-05-16 14:58 | disposition home or self-care (01) | DRG 776 ==
LOC: EC 17:29 → 4FBP 21:11
PROVIDERS: ADMIT Obstetrics & Gynecology; ATTEND Obstetrics & Gynecology
DX: O14.95 Unspecified pre-eclampsia, complicating the puerperium (principal); I08.1 Rheumatic disorders of both mitral and tricuspid valves; I27.20 Pulmonary hypertension, unspecified; O16.5 Unspecified maternal hypertension, complicating the puerperium; Z82.0 Family history of epilepsy and other diseases of the nervous system; Z82.49 Family history of ischemic heart disease and other diseases of the circulatory system; Z87.891 Personal history of nicotine dependence; Z88.1 Allergy status to other antibiotic agents; Z88.0 Allergy status to penicillin; Z88.2 Allergy status to sulfonamides
CPT/HCPCS: 36415; 71275; 80053; 80076; 81001; 83615; 83735; 84550; 85025; 85379; 93005; 93306; 96361; 96365; 96375; 99285

== ENCOUNTER → 2019-01-04 | Outpatient (CLI) | payer OTHER ==
--- NOTE | 2019-01-04 15:53 | NM ---
Nuclear medicine hepatobiliary scan. HISTORY: Pain. DOSAGE: The patient received 8 ounces and Ensure plus 4.2 mCi of Technetium 99m Choletec. FINDINGS: There is normal hepatic extraction. The gallbladder is seen by 15 minutes. There is bilia ry to bowel clearance by 30 minutes. Ejection fraction is 72%. IMPRESSION: 1. Normal hepatobiliary exam
== END | disposition home or self-care (01) ==
LOC: RADNMMAIN 13:00
PROVIDERS: ATTEND Family Medicine
DX: R10.11 Right upper quadrant pain (principal); R11.0 Nausea; Z88.1 Allergy status to other antibiotic agents; Z91.013 Allergy to seafood; Z88.0 Allergy status to penicillin
CPT/HCPCS: 78226; A9537

== ENCOUNTER → 2019-01-15 | Outpatient (CLI) | payer OTHER ==
--- NOTE | 2019-01-15 10:43 | CT ---
EXAMINATION TYPE: CT abdomen pelvis wo con DATE OF EXAM: 01/15/2019 COMPARISON: None HISTORY: Elevated LFT's, hepatomegaly CT DLP: 740 mGycm Automated exposure control for dose reduction was used. TECHNIQUE: Helical acquisition of images was performed from the lung bases through the pelvis. FINDINGS: Evaluation of the solid organs is limited due to the lack of intravenous contrast. LUNG BASES: No significant abnormality is appreciated. LIVER/GB: Liver is normal in size measuring 15 cm at the midclavicular line. No intrahepatic lesion. Gallbladder appears normal. PANCREAS: No significant abnormality is seen. SPLEEN: No significant abnormality is seen. ADRENALS: No significant abnormality is seen. KIDNEYS: No significant abnormality is seen. FREE AIR: No free air is visualized RETROPERITONEAL ADENOPATHY: None visualized REPRODUCTIVE ORGANS: No significant abnormality is seen URINARY BLADDER: No significant abnormality is seen. PELVIC ADENOPATHY: None visualized. OSSEOUS STRUCTURES: No significant abnormality is seen. BOWEL: No significant abnormality is seen. IMPRESSION: NORMAL APPEARANCE OF THE LIVER. NO ACUTE PROCESS WITHIN THE ABDOMEN OR PELVIS.
== END | disposition home or self-care (01) ==
LOC: RADCTMAIN 08:29
PROVIDERS: ATTEND Family Medicine
DX: R94.5 Abnormal results of liver function studies (principal); Z88.0 Allergy status to penicillin; Z88.1 Allergy status to other antibiotic agents; Z88.5 Allergy status to narcotic agent
CPT/HCPCS: 74176

== ENCOUNTER → 2019-11-03 | Outpatient (CLI) | payer OTHER | END | disposition home or self-care (01) | LOC: LABWHC1 15:35 | PROVIDERS: ATTEND Family Medicine | DX: Z20.828 Contact with and (suspected) exposure to other viral communicable diseases (principal) ==

== ENCOUNTER 2020-03-03 17:47 | Emergency (ER) | payer OTHER ==
[2020-03-03 18:06] VITALS: RESP 18; TEMP 98.3
[2020-03-03] MEDS ORDERED: METOCLOPRAMIDE 5 MG/ML 2 ML VIAL IVP STA (18:35)
[2020-03-03] MEDS ORDERED: MORPHINE SULFATE 4 MG/ML SYRINGE IV STA (18:35)
[2020-03-03] MEDS ORDERED: SODIUM CHLORIDE 0.9% 500 ML 500 ML IV STA (18:35)
[2020-03-03] MEDS ORDERED: diphenhydrAMINE 50 MG/ML 1 ML VIAL IVP STA (18:35)
--- NOTE | 2020-03-03 19:12 | CT ---
EXAMINATION TYPE: CT brain wo con DATE OF EXAM: 03/03/2020 COMPARISON: 03/31/2016 HISTORY: Headache and hypertension. CT DLP: 1142.4 mGycm Automated exposure control for dose reduction was used. Ventricles and sulci appear normal. There is no mass effect nor midline shift. There is no sign of in tracranial hemorrhage. There is no evidence of cerebral edema. The calvarium appears normal. Skull ba se is intact. IMPRESSION: Normal unenhanced head CT scan. No change.
--- NOTE | 2020-03-03 19:38 | ED ---
General Adult HPI - General Chief complaint: Headache Stated complaint: migraine Time Seen by Provider: 03/03/20 18:02 Source: patient, RN notes reviewed, old records reviewed Mode of arrival: ambulatory Limitations: language barrier - History of Present Illness Initial comments: 25-year-old female patient with the chief complaint headache. Patient reports that about 4 hours prior to coming to hospital she began to develop a generalized frontal lobe pressure headache. Patient was that it feels somewhat similar to her migraines in the past. However it is quite severe. She reports nausea without emesis. Denies any loss of consciousness or any neck stiffness. Denies any other acute complaints. Systemic: Pt denies fatigue, fever/chills, rash. Pt denies weakness, night sweats, weight loss. Neuro: Pt denies headache, visual disturbances, syncope or pre-syncope. HEENT: Pt denies ocular discharge or irritation, otalgia, rhinorrhea, pharyngitis or notable lymphadenopathy. Cardiopulmonary: Pt denies chest pain, SOB, heart palpitations, dyspnea on exertion. Abdominal/GI: Pt denies abdominal pain, n/v/d. : Pt denies dysuria, burning w/ urination, frequency/urgency. Denies new onset urinary or bowel incontinence. MSK: Pt denies myalgia, loss of strength or function in extremities. Neuro: Pt denies new onset weakness, paresthesias. - Related Data Home Medications Medication Instructions Recorded Confirmed Albuterol Inhaler (Mhu) [Ventolin 1 - 2 puff INHALATION RT-QID PRN 05/07/18 05/13/18 Hfa Inhaler] Beclomethasone Dipropionate [Qvar 1 puff INHALATION RT-BID 05/07/18 05/13/18 40 mcg Redihaler] Previous Rx's Medication Instructions Recorded Cephalexin [Keflex] 500 mg PO QID #28 cap 05/08/18 Ibuprofen [Motrin] 600 mg PO Q6HR PRN #40 tab 05/08/18 Labetalol [Trandate] 100 mg PO BID #60 tab 05/11/18 Allergies Allergy/AdvReac Type Severity Reaction Status Date / Time Penicillins Allergy Rash/Hives Verified 03/03/20 18:06 sulfamethoxazole Allergy Rash/Hives Verified 03/03/20 18:06 [From Bactrim] trimethoprim [From Bactrim] Allergy Rash/Hives Verified 03/03/20 18:06 erythromycin base AdvReac Nausea & Verified 03/03/20 18:06 Vomiting Review of Systems ROS Statement: Those systems with pertinent positive or pertinent negative responses have been documented in the HPI. ROS Other: All systems not noted in ROS Statement are negative. Past Medical History Past Medical History: Asthma Additional Past Medical History / Comment(s): migraines History of Any Multi-Drug Resistant Organisms: None Reported Past Surgical History: No Surgical Hx Reported Additional Past Surgical History / Comment(s): Left big toe surgery Past Anesthesia/Blood Transfusion Reactions: No Reported Reaction Past Psychological History: Anxiety Past Alcohol Use History: None Reported Past Drug Use History: None Reported - Past Family History Mother Family Medical History: No Reported History Additional Family Medical History / Comment(s): Epilepsy Father Family Medical History: Hypertension General Exam - General Exam Comments Initial Comments: Constitutional: NAD, AOX3, Pt has pleasant affect. HEENT: NC/AT, trachea midline, neck supple, no lymphadenopathy.External ears appear normal, without discharge. Mucous membranes moist. Eyes PERRLA, EOM intact. There is no scleral icterus. No pallor noted. Cardiopulmonary: RRR, no murmurs, rubs or gallops, no JVD noted. Lungs CTAB in anterior and posterior mckenzie. No peripheral edema. Abdominal exam: Abdomen soft and non-distended. Neuro: CN II-XII intact. No nuchal rigidity. No raccon eyes, no horvath sign, no hemotympanum. No cervical spinal tenderness. MSK: Full active ROM in upper and lower extremities, 5/5 stregnth. Limitations: language barrier Course Vital Signs 03/03/20 18:03 Temperature 98.3 F Pulse Rate 98 Respiratory 18 Rate Blood Pressure 177/110 O2 Sat by Pulse 98 Oximetry Medical Decision Making - Medical Decision Making 25-year-old female patient who is here for chief complaint of headache which began about 4 hours ago. Seems similar to her migraine headaches in the past. Neurologic exam is intact. CT brain without contrast negative for any acute process. Headache is resolved with analgesia. Patient discharged with outpatient follow-up and return precautions. Case discussed with Dr. Rushing. Disposition Clinical Impression: Acute headache Disposition: HOME SELF-CARE Condition: Stable Instructions (If sedation given, give patient instructions): Acute Headache (ED) Additional Instructions: follow-up with primary care provider tomorrow. Have blood pressure check by primary care provider. Return to ER if any worsening symptoms. Is patient prescribed a controlled substance at d/c from ED?: No Referrals: Eugene Romero MD [Primary Care Provider] - 1-2 days
[2020-03-03 20:03] VITALS: BP 150/87; PULSE 92
== END 2020-03-03 20:10 | disposition home or self-care (01) ==
LOC: EC 17:47
DX: R51.9 Headache, unspecified (principal); J45.909 Unspecified asthma, uncomplicated; Z79.51 Long term (current) use of inhaled steroids; Z88.0 Allergy status to penicillin; Z88.1 Allergy status to other antibiotic agents; Z88.2 Allergy status to sulfonamides
CPT/HCPCS: 99284 ×2; 96374 ×2; 96375 ×3; 96361 ×2; 70450; J2270; J1200; J2765; 96360

== ENCOUNTER 2020-03-14 11:10 | Emergency (ER) | payer OTHER ==
[2020-03-14 11:36] VITALS: RESP 18; TEMP 97.9
[2020-03-14] MEDS ORDERED: METOCLOPRAMIDE 5 MG/ML 2 ML VIAL IVP STA (11:59)
[2020-03-14] MEDS ORDERED: diphenhydrAMINE 50 MG/ML 1 ML VIAL IVP STA (11:59)
[2020-03-14] MEDS ORDERED: KETOROLAC 15 MG/ML 1 ML VIAL IVP STA ×2 (11:59→12:54)
[2020-03-14] MEDS ORDERED: SODIUM CHLORIDE 0.9% 500 ML 500 ML IV ONE (11:59)
--- NOTE | 2020-03-14 12:25 | ED ---
Headache HPI - General Chief Complaint: Headache Stated Complaint: Migraines Time Seen by Provider: 03/14/20 11:45 Source: patient, RN notes reviewed Mode of arrival: ambulatory Limitations: no limitations - History of Present Illness Initial Comments: 25-year-old female sent emergency Department chief complaint of migraine headache. Patient states she was seen here 2 weeks ago for similar complaints. Patient had CT which was unremarkable. Patient states she presents today was somewhat headache states that she does have a long history of headaches and which this was associated with her worse control. Patient states that this is her typical migraine headache she does have slight nausea photophobia. Denies any focal weakness or paresthesias denies any trauma no blood thinners noted. Denies neck pain or neck stiffness. - Related Data Home Medications Medication Instructions Recorded Confirmed ALPRAZolam [Xanax] 1 mg PO TID PRN 03/14/20 03/14/20 Albuterol Sulfate [Albuterol 2 puff PO RT-Q6H PRN 03/14/20 03/14/20 Sulfate Hfa] Fluticasone/Salmeterol 1 puff INHALATION RT-BID 03/14/20 03/14/20 [Fluticasone-Salmeterol 113-14] Montelukast [Singulair] 10 mg PO HS 03/14/20 03/14/20 Previous Rx's Medication Instructions Recorded Ibuprofen [Motrin] 600 mg PO Q6HR PRN #40 tab 05/08/18 Allergies Allergy/AdvReac Type Severity Reaction Status Date / Time Penicillins Allergy Rash/Hives Verified 03/14/20 13:28 sulfamethoxazole Allergy Rash/Hives Verified 03/14/20 13:28 [From Bactrim] trimethoprim [From Bactrim] Allergy Rash/Hives Verified 03/14/20 13:28 erythromycin base AdvReac Nausea & Verified 03/14/20 13:28 Vomiting Review of Systems ROS Statement: Those systems with pertinent positive or pertinent negative responses have been documented in the HPI. ROS Other: All systems not noted in ROS Statement are negative. Past Medical History Past Medical History: Asthma Additional Past Medical History / Comment(s): migraines History of Any Multi-Drug Resistant Organisms: None Reported Past Surgical History: No Surgical Hx Reported Additional Past Surgical History / Comment(s): Left big toe surgery Past Anesthesia/Blood Transfusion Reactions: No Reported Reaction Past Psychological History: Anxiety Smoking Status: Current every day smoker Past Alcohol Use History: Rare Past Drug Use History: None Reported - Past Family History Mother Family Medical History: No Reported History Additional Family Medical History / Comment(s): Epilepsy Father Family Medical History: Hypertension General Exam Limitations: no limitations General appearance: alert, in no apparent distress Head exam: Present: atraumatic, normocephalic, normal inspection Eye exam: Present: normal appearance, PERRL, EOMI. Absent: scleral icterus, conjunctival injection, periorbital swelling ENT exam: Present: normal exam, normal oropharynx, mucous membranes moist, TM's normal bilaterally Neck exam: Present: normal inspection, full ROM. Absent: tenderness, meningismus, lymphadenopathy Respiratory exam: Present: normal lung sounds bilaterally, decreased breath sounds. Absent: respiratory distress, wheezes, rales, rhonchi, stridor Cardiovascular Exam: Present: regular rate, normal rhythm, normal heart sounds. Absent: systolic murmur, diastolic murmur, rubs, gallop, clicks GI/Abdominal exam: Present: soft, normal bowel sounds. Absent: distended, tenderness, guarding, rebound, rigid Neurological exam: Present: alert, oriented X3, CN II-XII intact, reflexes normal, other (Finger to nose intact). Absent: motor sensory deficit Skin exam: Present: warm, dry, intact, normal color. Absent: rash Course Vital Signs 03/14/20 11:34 Temperature 97.9 F Pulse Rate 71 Respiratory 18 Rate Blood Pressure 129/85 O2 Sat by Pulse 100 Oximetry Medical Decision Making - Medical Decision Making 25-year-old female presented for typical migraine headache. She has no red flag symptoms no neurological deficits. Patient we discharged stable condition after migraine cocktail. Follow-up with neurology and PCP. Disposition Clinical Impression: Migraine Disposition: HOME SELF-CARE Condition: Stable Instructions (If sedation given, give patient instructions): Acute Headache (ED) Additional Instructions: Please return to the Emergency Department if symptoms worsen or any other concerns. Is patient prescribed a controlled substance at d/c from ED?: No Referrals: Eugene Romero MD [Primary Care Provider] - 1-2 days Time of Disposition: 13:39
[2020-03-14] MEDS ORDERED: ORPHENADRINE 30 MG/ML 2 ML VIAL IVP STA (12:54)
[2020-03-14 13:48] VITALS: BP 120/63; PULSE 60
== END 2020-03-14 13:48 | disposition home or self-care (01) ==
LOC: EC 11:10
DX: G43.909 Migraine, unspecified, not intractable, without status migrainosus (principal); F17.200 Nicotine dependence, unspecified, uncomplicated; F41.9 Anxiety disorder, unspecified; J45.909 Unspecified asthma, uncomplicated; Z79.51 Long term (current) use of inhaled steroids; Z79.899 Other long term (current) drug therapy; Z88.0 Allergy status to penicillin; Z88.2 Allergy status to sulfonamides; Z88.1 Allergy status to other antibiotic agents
CPT/HCPCS: 99283 ×2; 96374 ×2; 96375 ×4; 96376 ×2; 96361 ×2; J1200; J2360; J2765; J1885

== ENCOUNTER 2020-03-19 19:17 | Emergency (ER) | payer OTHER ==
[2020-03-19 19:33] VITALS: BP 142/94; PULSE 95; RESP 16
--- NOTE | 2020-03-19 20:51 | XR ---
EXAMINATION TYPE: XR chest 2V DATE OF EXAM: 03/19/2020 COMPARISON: 10/29/2016 HISTORY: Cough TECHNIQUE: FINDINGS: Heart and mediastinum are normal. Lungs are clear. Diaphragm is normal. Bony thorax appears normal. IMPRESSION: Normal chest. No change.
--- NOTE | 2020-03-19 21:08 | ED ---
General Adult HPI - General Chief complaint: Upper Respiratory Infection Stated complaint: COVID Exposure Time Seen by Provider: 03/19/20 19:34 Source: patient, RN notes reviewed, old records reviewed Mode of arrival: ambulatory Limitations: no limitations - History of Present Illness Initial comments: 25-year-old female patient to ED for cold exposure and test. Patient points that she had an exposure couple days ago. Denies any fevers. Reports that she's had mild cough. Denies any chest pain or shortness of breath. Denies any chance of being . Denies any other acute complaints. Systemic: Pt denies fatigue, fever/chills, rash. Pt denies weakness, night sweats, weight loss. Neuro: Pt denies headache, visual disturbances, syncope or pre-syncope. HEENT: Pt denies ocular discharge or irritation, otalgia, rhinorrhea, pharyngitis or notable lymphadenopathy. Cardiopulmonary: Pt denies chest pain, SOB, heart palpitations, dyspnea on ex ertion. Abdominal/GI: Pt denies abdominal pain, n/v/d. : Pt denies dysuria, burning w/ urination, frequency/urgency. Denies new onset urinary or bowel incontinence. MSK: Pt denies myalgia, loss of strength or function in extremities. Neuro: Pt denies new onset weakness, paresthesias. - Related Data Home Medications Medication Instructions Recorded Confirmed ALPRAZolam [Xanax] 1 mg PO TID PRN 03/14/20 03/14/20 Albuterol Sulfate [Albuterol 2 puff PO RT-Q6H PRN 03/14/20 03/14/20 Sulfate Hfa] Fluticasone/Salmeterol 1 puff INHALATION RT-BID 03/14/20 03/14/20 [Fluticasone-Salmeterol 113-14] Montelukast [Singulair] 10 mg PO HS 03/14/20 03/14/20 Previous Rx's Medication Instructions Recorded Ibuprofen [Motrin] 600 mg PO Q6HR PRN #40 tab 05/08/18 Allergies Allergy/AdvReac Type Severity Reaction Status Date / Time Penicillins Allergy Rash/Hives Verified 03/19/20 19:30 sulfamethoxazole Allergy Rash/Hives Verified 03/19/20 19:30 [From Bactrim] trimethoprim [From Bactrim] Allergy Rash/Hives Verified 03/19/20 19:30 erythromycin base AdvReac Nausea & Verified 03/19/20 19:30 Vomiting Review of Systems ROS Statement: Those systems with pertinent positive or pertinent negative responses have been documented in the HPI. ROS Other: All systems not noted in ROS Statement are negative. Past Medical History Past Medical History: Asthma Additional Past Medical History / Comment(s): migraines History of Any Multi-Drug Resistant Organisms: None Reported Past Surgical History: No Surgical Hx Reported Additional Past Surgical History / Comment(s): Left big toe surgery Past Anesthesia/Blood Transfusion Reactions: No Reported Reaction Past Psychological History: Anxiety Smoking Status: Current every day smoker Past Alcohol Use History: Rare Past Drug Use History: None Reported - Past Family History Mother Family Medical History: No Reported History Additional Family Medical History / Comment(s): Epilepsy Father Family Medical History: Hypertension General Exam - General Exam Comments Initial Comments: Constitutional: NAD, AOX3, Pt has pleasant affect. HEENT: NC/AT, trachea midline, neck supple, no lymphadenopathy. External ears appear normal, without discharge. Mucous membranes moist. Eyes PERRLA, EOM intact. There is no scleral icterus. No pallor noted. Cardiopulmonary: RRR, no murmurs, rubs or gallops, no JVD noted. Lungs CTAB in anterior and posterior mckenzie. No peripheral edema. Abdominal exam: Abdomen soft and non-distended. Abdomen non-tender to palpation in all 4 quadrants. Bowel sounds active in LLQ. No hepatosplenomegaly. No ecchymosis Neuro: CN II-XII grossly intact. No nuchal rigidity. No raccon eyes, no horvath sign, no hemotympanum. No cervical spinal tenderness. MSK: Full active ROM in upper and lower extremities, 5/5 stregnth. Limitations: no limitations Course Vital Signs 03/19/20 03/19/20 19:30 21:26 Temperature 99.0 F 98.7 F Pulse Rate 95 95 Respiratory 16 16 Rate Blood Pressure 142/94 142/94 O2 Sat by Pulse 99 99 Oximetry Medical Decision Making - Medical Decision Making 25-year-old female patient ED after covered exposure mild cough requesting test. Vital signs stable physical exam negative for acute pathology chest x-ray negative for acute pathology, test pending will be discharged with outpatient follow-up, and return precautions. Case discussed with Dr. Rizo. Disposition Clinical Impression: Cough, Exposure to COVID-19 virus Disposition: HOME SELF-CARE Condition: Stable Instructions (If sedation given, give patient instructions): Acute Cough (ED) Additional Instructions: Follow up with PCP tomorrow. Self quarantine until covid results. Return to ED with any worsening symptoms. Is patient prescribed a controlled substance at d/c from ED?: No Referrals: Eugene Romero MD [Primary Care Provider] - 1-2 days
[2020-03-19 21:27] VITALS: TEMP 98.7
== END 2020-03-19 21:27 | disposition home or self-care (01) ==
LOC: EC 19:17
DX: R05 Cough (principal); Z20.828 Contact with and (suspected) exposure to other viral communicable diseases; J45.909 Unspecified asthma, uncomplicated; F41.9 Anxiety disorder, unspecified; F17.200 Nicotine dependence, unspecified, uncomplicated; Z79.51 Long term (current) use of inhaled steroids; Z79.899 Other long term (current) drug therapy; Z88.0 Allergy status to penicillin; Z88.1 Allergy status to other antibiotic agents; Z88.2 Allergy status to sulfonamides
CPT/HCPCS: 71046; 99284; U0003

== ENCOUNTER → 2020-04-18 | Outpatient (CLI) | payer OTHER | END | disposition home or self-care (01) | LOC: LABWHC1 12:18 | PROVIDERS: ATTEND Family Medicine | DX: R11.0 Nausea (principal); R51.9 Headache, unspecified; Z20.828 Contact with and (suspected) exposure to other viral communicable diseases | CPT/HCPCS: U0003; C9803 ==

== ENCOUNTER 2020-06-11 16:42 | Emergency (ER) | payer OTHER ==
[2020-06-11 16:47] VITALS: RESP 16
--- NOTE | 2020-06-11 17:22 | ED ---
Abdominal Pain HPI - General Chief Complaint: Abdominal Pain Stated Complaint: Abd pain/nausea Time Seen by Provider: 06/11/20 16:49 Source: patient Mode of arrival: ambulatory Limitations: no limitations - History of Present Illness Initial Comments: 25yo female presnting for cc of lower abdominal pian. pt states since this morning she has had sharp lwoer abdominal pains. states they have gotten worse. admits to vomiting this AM with nausea, ate breakfast but nothing since. pt denies diarrhea, vaginal bleeding, . pt states it feels higher than her pelvic region. denies upper abdominal pain, chest pain or dyspnea. denies urinary symptoms. pt denies experiencing this in the past. no additional complaints. pt appears nontoxic on arrival. - Related Data Home Medications Medication Instructions Recorded Confirmed ALPRAZolam [Xanax] 1 mg PO TID PRN 03/14/20 06/11/20 Albuterol Sulfate [Albuterol 2 puff PO RT-Q6H PRN 03/14/20 06/11/20 Sulfate Hfa] Montelukast [Singulair] 10 mg PO HS 03/14/20 06/11/20 Diclofenac Sodium 50 mg PO TID PRN 06/11/20 06/11/20 Fluticasone/Salmeterol [Advair 1 puff INHALATION RT-BID 06/11/20 06/11/20 250-50 Diskus] buPROPion XL [Wellbutrin Xl] 150 mg PO DAILY 06/11/20 06/11/20 Previous Rx's Medication Instructions Recorded Ibuprofen [Motrin] 600 mg PO Q6HR PRN #40 tab 05/08/18 Allergies Allergy/AdvReac Type Severity Reaction Status Date / Time Penicillins Allergy Rash/Hives Verified 06/11/20 17:57 sulfamethoxazole Allergy Rash/Hives Verified 06/11/20 17:57 [From Bactrim] trimethoprim [From Bactrim] Allergy Rash/Hives Verified 06/11/20 17:57 erythromycin base AdvReac Nausea & Verified 06/11/20 17:57 Vomiting Review of Systems ROS Statement: Those systems with pertinent positive or pertinent negative responses have been documented in the HPI. ROS Other: All systems not noted in ROS Statement are negative. Past Medical History Past Medical History: Asthma Additional Past Medical History / Comment(s): migraines History of Any Multi-Drug Resistant Organisms: None Reported Past Surgical History: No Surgical Hx Reported Additional Past Surgical History / Comment(s): Left big toe surgery Past Anesthesia/Blood Transfusion Reactions: No Reported Reaction Past Psychological History: Anxiety Smoking Status: Current every day smoker Past Alcohol Use History: Rare Past Drug Use History: None Reported - Past Family History Mother Family Medical History: No Reported History Additional Family Medical History / Comment(s): Epilepsy Father Family Medical History: Hypertension General Exam - General Exam Comments Initial Comments: General: The patient is awake and alert, in no distress Eye: +3 mm pupils are equal, round and reactive to light, extra-ocular movements are intact. No nystagmus. There is normal conjunctiva bilaterally. No signs of icterus. Ears, nose, mouth and throat: There are moist mucous membranes and no oral lesions. Neck: The neck is supple, there is no tenderness or JVD. Cardiovascular: There is a regular rate and rhythm. No murmur, rub or gallop is appreciated. Respiratory: Lungs are clear to auscultation, respirations are non-labored, breath sounds are equal. No wheezes, stridor, rales, or rhonchi. Gastrointestinal: Soft, non-distended, mild RLQ and diffuse lower abdominal tenderness, appears mild, abdomen without masses or organomegaly noted. There is no rebound or guarding present. Musculoskeletal: Normal ROM, no tenderness. Strength 5/5. Sensation intact. Radial pulses equal bilaterally 2+. Neurological: A&O x 3. CN II-XII intact grossly, There are no obvious motor or sensory deficits. Coordination appears grossly intact. Speech is normal. Skin: Skin is warm and dry and no rashes or lesions are noted. Psychiatric: Cooperative, appropriate mood & affect, normal judgment. Limitations: no limitations Course Vital Signs 06/11/20 06/11/20 16:45 19:34 Temperature 98.2 F 98.3 F Pulse Rate 88 67 Respiratory 16 16 Rate Blood Pressure 147/93 135/76 O2 Sat by Pulse 100 98 Oximetry Medical Decision Making - Medical Decision Making Leukocytosis. no fevers. ate today. patient has diffuse lower abdominal tenderness, including RLQ. no mcburneys point tenderness. US reveals right sided cyst. no obviouis signs of appendicitis. patient nontoxic in appearance. recommend return for fevers, increasing pain. otherwise may follow-up with OBGYN and pcp in 1-2 days. - Lab Data Result diagrams: 06/11/20 17:30 06/11/20 17:30 Lab Results 06/11/20 06/11/20 06/11/20 Range/Units 17:27 17:27 17:30 WBC 11.3 H (3.8-10.6) k/uL RBC 4.62 (3.80-5.40) m/uL Hgb 14.2 (11.4-16.0) gm/dL Hct 41.8 (34.0-46.0) % MCV 90.3 (80.0-100.0) fL MCH 30.7 (25.0-35.0) pg MCHC 33.9 (31.0-37.0) g/dL RDW 13.1 (11.5-15.5) % Plt Count 271 (150-450) k/uL MPV 6.8 Neutrophils % 79 % Lymphocytes % 13 % Monocytes % 4 % Eosinophils % 2 % Basophils % 1 % Neutrophils # 8.9 H (1.3-7.7) k/uL Lymphocytes # 1.5 (1.0-4.8) k/uL Monocytes # 0.5 (0-1.0) k/uL Eosinophils # 0.3 (0-0.7) k/uL Basophils # 0.1 (0-0.2) k/uL Sodium (137-145) mmol/L Potassium (3.5-5.1) mmol/L Chloride (98-107) mmol/L Carbon Dioxide (22-30) mmol/L Anion Gap mmol/L BUN (7-17) mg/dL Creatinine (0.52-1.04) mg/dL Est GFR (CKD-EPI)AfAm (>60 ml/min/1.73 sqM) Est GFR (CKD-EPI)NonAf (>60 ml/min/1.73 sqM) Glucose (74-99) mg/dL Plasma Lactic Acid Praveen (0.7-2.0) mmol/L Calcium (8.4-10.2) mg/dL Total Bilirubin (0.2-1.3) mg/dL AST (14-36) U/L ALT (4-34) U/L Alkaline Phosphatase (38-126) U/L Total Protein (6.3-8.2) g/dL Albumin (3.5-5.0) g/dL Amylase (30-110) U/L Lipase (23-300) U/L Urine Color Yellow Urine Appearance Cloudy H (Clear) Urine pH 6.5 (5.0-8.0) Ur Specific [place] 1.022 (1.001-1.035) Urine Protein Negative (Negative) Urine Glucose (UA) Negative (Negative) Urine Ketones Negative (Negative) Urine Blood Negative (Negative) Urine Nitrite Negative (Negative) Urine Bilirubin Negative (Negative) Urine Urobilinogen <2.0 (<2.0) mg/dL Ur Leukocyte Esterase Negative (Negative) Urine RBC 2 (0-5) /hpf Urine WBC 2 (0-5) /hpf Ur Squamous Epith Cells 16 H (0-4) /hpf Urine Mucus Rare H (None) /hpf Urine HCG, Qual Not Detected (Not Detectd) 06/11/20 06/11/20 Range/Units 17:30 17:30 WBC (3.8-10.6) k/uL RBC (3.80-5.40) m/uL Hgb (11.4-16.0) gm/dL Hct (34.0-46.0) % MCV (80.0-100.0) fL MCH (25.0-35.0) pg MCHC (31.0-37.0) g/dL RDW (11.5-15.5) % Plt Count (150-450) k/uL MPV Neutrophils % % Lymphocytes % % Monocytes % % Eosinophils % % Basophils % % Neutrophils # (1.3-7.7) k/uL Lymphocytes # (1.0-4.8) k/uL Monocytes # (0-1.0) k/uL Eosinophils # (0-0.7) k/uL Basophils # (0-0.2) k/uL Sodium 138 (137-145) mmol/L Potassium 4.6 (3.5-5.1) mmol/L Chloride 110 H (98-107) mmol/L Carbon Dioxide 22 (22-30) mmol/L Anion Gap 6 mmol/L BUN 17 (7-17) mg/dL Creatinine 0.63 (0.52-1.04) mg/dL Est GFR (CKD-EPI)AfAm >90 (>60 ml/min/1.73 sqM) Est GFR (CKD-EPI)NonAf >90 (>60 ml/min/1.73 sqM) Glucose 93 (74-99) mg/dL Plasma Lactic Acid [place] 1.2 (0.7-2.0) mmol/L Calcium 8.9 (8.4-10.2) mg/dL Total Bilirubin 0.9 (0.2-1.3) mg/dL AST 22 (14-36) U/L ALT 30 (4-34) U/L Alkaline Phosphatase 69 (38-126) U/L Total Protein 6.5 (6.3-8.2) g/dL Albumin 3.8 (3.5-5.0) g/dL Amylase 30 (30-110) U/L Lipase 62 (23-300) U/L Urine Color Urine Appearance (Clear) Urine pH (5.0-8.0) Ur Specific [place] (1.001-1.035) Urine Protein (Negative) Urine Glucose (UA) (Negative) Urine Ketones (Negative) Urine Blood (Negative) Urine Nitrite (Negative) Urine Bilirubin (Negative) Urine Urobilinogen (<2.0) mg/dL Ur Leukocyte Esterase (Negative) Urine RBC (0-5) /hpf Urine WBC (0-5) /hpf Ur Squamous Epith Cells (0-4) /hpf Urine Mucus (None) /hpf Urine HCG, Qual (Not Detectd) Disposition Clinical Impression: Nausea & vomiting, Abdominal pain Disposition: HOME SELF-CARE Condition: Good Instructions (If sedation given, give patient instructions): Abdominal Pain (ED) Additional Instructions: Please use medication as discussed. Please follow-up with family doctor in the next 2 days. If pain increases or develop fevers immediately return to ER. Follow-up with OBGN for right sided ovarian cyst. Please return to emergency room if the symptoms increase or worsen or for any other concerns. Is patient prescribed a controlled substance at d/c from ED?: No Referrals: Eugene Romero MD [Primary Care Provider] - 1-2 days Time of Disposition: 19:33
[2020-06-11 17:40] LABS: Basophils # (A) 0.1 k/uL (0-0.2); Basophils % (A) 1 %; Eosinophils # (A) 0.3 k/uL (0-0.7); Eosinophils % (A) 2 %; HCT 41.8 % (34.0-46.0); HGB 14.2 gm/dL (11.4-16.0); Lymphocytes # (A) 1.5 k/uL (1.0-4.8); Lymphocytes % (A) 13 %; MCH 30.7 pg (25.0-35.0); MCHC 33.9 g/dL (31.0-37.0); MCV 90.3 fL (80.0-100.0); Mean Platelet Volume 6.8; Monocytes # (A) 0.5 k/uL (0-1.0); Monocytes % (A) 4 %; Neutrophils # (A) 8.9 k/uL (1.3-7.7); Neutrophils % (A) 79 %; Platelet Count 271 k/uL (150-450); RBC 4.62 m/uL (3.80-5.40); RDW 13.1 % (11.5-15.5); WBC 11.3 k/uL (3.8-10.6)
[2020-06-11 17:48] LABS: Appearance,Urine Cloudy (Clear); Bilirubin,Urine Negative (Negative); Blood,Urine Negative (Negative); Color,Urine Yellow; Glucose,Urine (UA) Negative (Negative); Ketones,Urine Negative (Negative); Leukocyte Esterase,Urine Negative (Negative); Mucus,Urine Rare /hpf; Nitrite,Urine Negative (Negative); PH, Urine 6.5 (5.0-8.0); Protein,Urine Negative (Negative); RBC,Urine 2 /hpf (0-5); Specific Gravity,Urine 1.022 (1.001-1.035); Squamous Epithelial Cell,Urine 16 /hpf (0-4); Urobilinogen,Urine <2.0 mg/dL (<2.0); WBC,Urine 2 /hpf (0-5)
[2020-06-11 17:51] LABS: ALT 30 U/L (4-34); AST 22 U/L (14-36); African American GFR (CKD) >90 (>60 ml/min/1.73 sqM); Albumin 3.8 g/dL (3.5-5.0); Alkaline Phosphatase 69 U/L (38-126); Amylase 30 U/L (30-110); Anion Gap 6 mmol/L; Blood Urea Nitrogen 17 mg/dL (7-17); Calcium 8.9 mg/dL (8.4-10.2); Carbon Dioxide 22 mmol/L (22-30); Chloride 110 mmol/L (98-107); Glucose 93 mg/dL (74-99); Lipase 62 U/L (23-300); Non-African American GFR(CKD) >90 (>60 ml/min/1.73 sqM); Potassium 4.6 mmol/L (3.5-5.1); Sodium 138 mmol/L (137-145); Total Bilirubin 0.9 mg/dL (0.2-1.3); Total Protein 6.5 g/dL (6.3-8.2)
[2020-06-11] MEDS ORDERED: MORPHINE SULFATE 2 MG/ML SYRINGE IVP STA (18:00)
--- NOTE | 2020-06-11 18:29 | CT ---
EXAMINATION TYPE: CT abdomen pelvis w con DATE OF EXAM: 06/11/2020 COMPARISON: 01/15/2019 HISTORY: Right lower quadrant pain with nausea. CT DLP: 830.5 mGycm Automated exposure control for dose reduction was used. CONTRAST: Performed with IV Contrast, patient injected with 100 mL of Isovue 300. The lung bases are clear. There is no pleural effusion. Heart size is normal. There is no pericardial effusion. Liver spleen stomach pancreas gallbladder appear normal. Bile ducts are not dilated. There is no adrenal mass. Kidneys show satisfactory contrast opacification. There is no hydronephrosi s. There is no retroperitoneal adenopathy. Bladder distends smoothly. There is no inguinal hernia. Ut erus is anteverted. Delayed images show normal renal excretion. Lumbar vertebra have normal alignment. There is no compression fracture. Disc spaces are normal. Bony pelvis is intact. Hip joints appear normal. There is no evidence of pelvic mass. There is no free fluid in the pelvis. There is no mesenteric raul ma. There is no ascites or free air. There is no evidence of a bowel obstruction. The terminal ileum appears normal. Appendix is not definitely seen. There is no sign of thickened appendix. Cecum appear s normal. IMPRESSION: Appendix not seen. No sign of thickened appendix. No evidence of acute abdomen and pelvis. No adverse change compared to old exam.
--- NOTE | 2020-06-11 19:31 | US ---
EXAMINATION TYPE: US transvaginal DATE OF EXAM: 06/11/2020 COMPARISON: NONE CLINICAL HISTORY: pain. Pain TECHNIQUE: Transvaginal (TV). EXAM MEASUREMENTS: Uterus: 9.0 x 3.5 x 4.5 cm Endometrial Stripe: .7 cm Right Ovary: 4.4 x 2.0 x 1.7 cm Left Ovary: 2.0 x 3.6 x 2.8 cm 1. Uterus: Anteverted wnl 2. Endometrium: wnl 3. Right Ovary: Cystic area adjacent to ovary measuring 2.0 x 2.2 x 2.2 cm. 4. Left Ovary: Follicles seen Spectral, color and waveform doppler imaging shows good arterial and venous flow within the ovaries ; there is no evidence for ovarian torsion. 5. Bilateral Adnexa: wnl 6. Posterior cul-de-sac: wnl IMPRESSION: Simple right ovarian cyst. No solid adnexal mass. No evidence of ovarian torsion. Normal uterus and e ndometrium.
[2020-06-11 19:37] VITALS: BP 135/76; PULSE 67; TEMP 98.3
[2020-06-11] MEDS ORDERED: KETOROLAC 15 MG/ML 1 ML VIAL IVP STA (19:39)
== END 2020-06-11 19:52 | disposition home or self-care (01) ==
LOC: EC 16:42
DX: R10.30 Lower abdominal pain, unspecified (principal); R11.2 Nausea with vomiting, unspecified; N83.201 Unspecified ovarian cyst, right side; D72.829 Elevated white blood cell count, unspecified; R10.813 Right lower quadrant abdominal tenderness; J45.909 Unspecified asthma, uncomplicated; G43.909 Migraine, unspecified, not intractable, without status migrainosus; F41.9 Anxiety disorder, unspecified; F17.200 Nicotine dependence, unspecified, uncomplicated; Z79.899 Other long term (current) drug therapy; Z79.51 Long term (current) use of inhaled steroids; Z88.0 Allergy status to penicillin; Z88.2 Allergy status to sulfonamides; Z88.1 Allergy status to other antibiotic agents
CPT/HCPCS: 36415; 80053; 82150; 83605; 83690; 85025; 81001; 81025; 93975; 76830; 74177; 99284; 96374; 96375; J2270; J1885; Q9967

== ENCOUNTER 2020-12-30 11:58 | Emergency (ER) | payer OTHER ==
[2020-12-30 12:09] VITALS: RESP 18; TEMP 97.9
--- NOTE | 2020-12-30 12:36 | XR ---
EXAMINATION TYPE: XR foot complete RT DATE OF EXAM: 12/30/2020 COMPARISON: NONE HISTORY: Pain TECHNIQUE: Three views are submitted. FINDINGS: The osseous structures are intact. There is no acute fracture or dislocation. Joint spaces are p reserved. Tiny plantar calcaneal spur. IMPRESSION: 1. No acute fracture or dislocation. If symptoms persist, follow-up exam in 7 to 10 days could be ob tained.
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
[2020-12-30 13:49] VITALS: BP 124/92; PULSE 77
== END 2020-12-30 13:46 | disposition home or self-care (01) ==
LOC: EC 11:58
DX: S00.03XA Contusion of scalp, initial encounter (principal); S40.022A Contusion of left upper arm, initial encounter; S90.31XA Contusion of right foot, initial encounter; J45.909 Unspecified asthma, uncomplicated; F17.200 Nicotine dependence, unspecified, uncomplicated; Z79.1 Long term (current) use of non-steroidal anti-inflammatories (NSAID); Z79.51 Long term (current) use of inhaled steroids; Z79.899 Other long term (current) drug therapy; Z82.49 Family history of ischemic heart disease and other diseases of the circulatory system; Z88.0 Allergy status to penicillin; Z88.1 Allergy status to other antibiotic agents; Z88.2 Allergy status to sulfonamides; Y09 Assault by unspecified means; Y92.009 Unspecified place in unspecified non-institutional (private) residence as the place of occurrence of the external cause
CPT/HCPCS: 70450; 72125; 99285

== ENCOUNTER 2021-01-05 13:41 | Emergency (ER) | payer OTHER ==
[2021-01-05 13:53] VITALS: RESP 18; TEMP 98.1
[2021-01-05] MEDS ORDERED: SODIUM CHLORIDE 0.9% 1,000 ML IV STA (14:29)
[2021-01-05] MEDS ORDERED: KETOROLAC 15 MG/ML 1 ML VIAL IVP STA (14:35)
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
[2021-01-05 14:57] LABS: Appearance,Urine Clear (Clear); Basophils % (A) 1 %; Bilirubin,Urine Negative (Negative); Blood,Urine Negative (Negative); Color,Urine Light Yellow; Eosinophils # (A) 0.1 k/uL (0-0.7); Eosinophils % (A) 2 %; Glucose,Urine (UA) Negative (Negative); HCT 38.9 % (34.0-46.0); HGB 12.9 gm/dL (11.4-16.0); Ketones,Urine Negative (Negative); Leukocyte Esterase,Urine Negative (Negative); Lymphocytes # (A) 1.3 k/uL (1.0-4.8); Lymphocytes % (A) 16 %; MCH 29.5 pg (25.0-35.0); MCV 89.3 fL (80.0-100.0); Mean Platelet Volume 7.6; Monocytes # (A) 0.3 k/uL (0-1.0); Monocytes % (A) 4 %; Neutrophils # (A) 6.2 k/uL (1.3-7.7); Neutrophils % (A) 76 %; Nitrite,Urine Negative (Negative); PH, Urine 7.5 (5.0-8.0); Platelet Count 331 k/uL (150-450); Protein,Urine Negative (Negative); RBC 4.35 m/uL (3.80-5.40); RDW 14.2 % (11.5-15.5); Specific Gravity,Urine 1.007 (1.001-1.035); Urobilinogen,Urine <2.0 mg/dL (<2.0); WBC 8.2 k/uL (3.8-10.6)
[2021-01-05 15:07] LABS: ALT 17 U/L (4-34); AST 22 U/L (14-36); African American GFR (CKD) >90 (>60 ml/min/1.73 sqM); Albumin 4.2 g/dL (3.5-5.0); Alcohol <10 mg/dL; Alkaline Phosphatase 60 U/L (38-126); Anion Gap 9 mmol/L; Blood Urea Nitrogen 12 mg/dL (7-17); Calcium 9.6 mg/dL (8.4-10.2); Carbon Dioxide 27 mmol/L (22-30); Chloride 101 mmol/L (98-107); Glucose 110 mg/dL (74-99); Non-African American GFR(CKD) >90 (>60 ml/min/1.73 sqM); Potassium 4.4 mmol/L (3.5-5.1); Sodium 137 mmol/L (137-145); Total Bilirubin 0.5 mg/dL (0.2-1.3); Total Protein 6.8 g/dL (6.3-8.2)
[2021-01-05 15:08] LABS: Amphetamine Screen,Urine Not Detected (NotDetected); Barbiturate Screen,Urine Not Detected (NotDetected); Benzodiazepines Screen,Urine Not Detected (NotDetected); Cocaine Screen,Urine Not Detected (NotDetected); Methadone Screen, Urine Not Detected (NotDetected); Opiate Screen,Urine Not Detected (NotDetected); Oxycodone Screen, Urine Not Detected (NotDetected); Phencyclidine Screen,Urine Not Detected (NotDetected); Tricyclic Antidepressant,Urine Not Detected (NotDetected); Urn Cannabinoid Scrn Not Detected (NotDetected)
[2021-01-05] MEDS ORDERED: DIPH,PERTUS(ACELL)TETVAC-LF 0.5 ML VIAL IM ONE (15:08)
[2021-01-05] MEDS ORDERED: BACITRACIN OINT 1 EACH PACKET TOPICAL ONE (15:42)
[2021-01-05] MEDS ORDERED: ORPHENADRINE 30 MG/ML 2 ML VIAL IM STA (16:36)
--- NOTE | 2021-01-05 16:46 | CT ---
EXAMINATION TYPE: CT brain wo con DATE OF EXAM: 01/05/2021 COMPARISON: 12/30/2020 HISTORY: Seizure. CT DLP: 1066.4 mGycm Automated exposure control for dose reduction was used. Ventricles have normal size. There is no mass effect nor midline shift. There is no sign of intracran ial hemorrhage. There is normal aeration of the mastoid sinuses. Calvarium is intact. There is normal aeration of the mastoid sinuses. Sella turcica is normal. IMPRESSION: Negative unenhanced head CT scan. No adverse change.
[2021-01-05 18:32] VITALS: BP 120/80; PULSE 72
== END 2021-01-05 18:32 | disposition home or self-care (01) ==
LOC: EC 13:41
DX: R56.9 Unspecified convulsions (principal); S00.81XA Abrasion of other part of head, initial encounter; J45.909 Unspecified asthma, uncomplicated; F17.200 Nicotine dependence, unspecified, uncomplicated; F11.90 Opioid use, unspecified, uncomplicated; F15.90 Other stimulant use, unspecified, uncomplicated; Z79.52 Long term (current) use of systemic steroids; Z79.51 Long term (current) use of inhaled steroids; Z79.899 Other long term (current) drug therapy; Z23 Encounter for immunization; X58.XXXA Exposure to other specified factors, initial encounter
CPT/HCPCS: 36415; 93005; 80053; 83735; 85025; 81003; 81025; 80306; 70450; 90715; 96374; 96361; 96372; 90471; 99285; G0480; J2360; J1885; 80320

== ENCOUNTER 2021-05-20 18:33 | Emergency (ER) | payer OTHER ==
[2021-05-20 18:48] VITALS: BP 133/90; PULSE 103; RESP 18; TEMP 98.1
[2021-05-20] MEDS ORDERED: ONDANSETRON ODT 4 MG TAB PO STA (19:12)
[2021-05-20] MEDS ORDERED: ACETAMINOPHEN TAB 500 MG TAB PO STA (19:12)
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
== END 2021-05-20 20:16 | disposition home or self-care (01) ==
LOC: EC 18:33
DX: S06.0X0A Concussion without loss of consciousness, initial encounter (principal); S00.03XA Contusion of scalp, initial encounter; J45.909 Unspecified asthma, uncomplicated; F17.200 Nicotine dependence, unspecified, uncomplicated; Z88.0 Allergy status to penicillin; Z88.1 Allergy status to other antibiotic agents; Z88.2 Allergy status to sulfonamides; W01.10XA Fall on same level from slipping, tripping and stumbling with subsequent striking against unspecified object, initial encounter
CPT/HCPCS: 70450; 72125; 99284

== ENCOUNTER 2021-07-28 03:59 | Emergency (ER) | payer OTHER ==
--- NOTE | 2021-07-28 04:10 | ED ---
Overdose HPI - General Chief Complaint: Overdose Stated Complaint: Overdose Time Seen by Provider: 07/28/21 04:10 Source: patient, RN notes reviewed, old records reviewed Mode of arrival: ambulatory Limitations: no limitations - History of Present Illness Initial Comments: This is a 18-year-old female to the emergency department for evaluation of this. She has required Narcan in the past. Patient is here for opiate overdose was still required Narcan. She currently feels well with a little anxious. Vital nauseous and swelling but no significant symptoms. Patient's not homicidal or suicidal no other drug or alcohol use today MD Complaint: accidental overdose -: minutes(s) Intent: unwilling to say How Overdose Was Discovered: family/friend present at time, called 911 Context: Intentional Overdose: drug/ETOH problems Associated Symptoms: depression Treatments Prior to Arrival: none - Related Data Home Medications Medication Instructions Recorded Confirmed cloNIDine HCL [Catapres] 0.1 mg PO BID 01/05/21 07/28/21 ALPRAZolam [Xanax] 2 mg PO DAILY PRN 07/28/21 07/28/21 Acetaminophen Tab [Tylenol Tab] 1,000 mg PO Q6HR PRN 07/28/21 07/28/21 Ibuprofen [Advil] 400 mg PO Q8HR PRN 07/28/21 07/28/21 Ibuprofen [Motrin Ib] 1,000 mg PO Q8H PRN 07/28/21 07/28/21 Naproxen Sodium [Aleve] 220 mg PO DAILY PRN 07/28/21 07/28/21 Remeron Unknown Dose 1 tab PO HS 07/28/21 07/28/21 Seroquel Unknown Dose 1 tab PO HS 07/28/21 07/28/21 Wellbutrin Unknown Dose 1 tab PO HS 07/28/21 07/28/21 Allergies Allergy/AdvReac Type Severity Reaction Status Date / Time Penicillins Allergy Rash/Hives Verified 07/28/21 15:46 sulfamethoxazole Allergy Rash/Hives Verified 07/28/21 15:46 [From Bactrim] trimethoprim [From Bactrim] Allergy Rash/Hives Verified 07/28/21 15:46 erythromycin base AdvReac Nausea & Verified 07/28/21 15:46 Vomiting Review of Systems ROS Statement: Those systems with pertinent positive or pertinent negative responses have been documented in the HPI. ROS Other: All systems not noted in ROS Statement are negative. Past Medical History Past Medical History: Asthma Additional Past Medical History / Comment(s): migraines History of Any Multi-Drug Resistant Organisms: None Reported Past Surgical History: No Surgical Hx Reported Additional Past Surgical History / Comment(s): Left big toe surgery Past Anesthesia/Blood Transfusion Reactions: No Reported Reaction Past Psychological History: No Psychological Hx Reported Smoking Status: Current every day smoker Past Alcohol Use History: Occasional Past Drug Use History: Heroin, Methamphetamine - Past Family History Mother Family Medical History: No Reported History Additional Family Medical History / Comment(s): Epilepsy Father Family Medical History: Hypertension General Exam General appearance: alert, in no apparent distress Head exam: Present: atraumatic, normocephalic, normal inspection Eye exam: Present: normal appearance, PERRL, EOMI. Absent: scleral icterus, conjunctival injection, periorbital swelling ENT exam: Present: normal exam, mucous membranes moist Neck exam: Present: normal inspection. Absent: tenderness, meningismus, lymphadenopathy Respiratory exam: Present: normal lung sounds bilaterally. Absent: respiratory distress, wheezes, rales, rhonchi, stridor Cardiovascular Exam: Present: regular rate, normal rhythm, normal heart sounds. Absent: systolic murmur, diastolic murmur, rubs, gallop, clicks GI/Abdominal exam: Present: soft, normal bowel sounds. Absent: distended, tenderness, guarding, rebound, rigid Extremities exam: Present: normal inspection, full ROM, normal capillary refill. Absent: tenderness, pedal edema, joint swelling, calf tenderness Back exam: Present: normal inspection Neurological exam: Present: alert, oriented X3, CN II-XII intact Psychiatric exam: Present: normal affect, normal mood Skin exam: Present: warm, dry, intact, normal color. Absent: rash Course Vital Signs 07/28/21 07/28/21 04:00 05:38 Temperature 98.0 F 98.4 F Pulse Rate 96 71 Respiratory 19 20 Rate Blood Pressure 147/109 125/99 O2 Sat by Pulse 99 97 Oximetry - Reevaluation(s) Reevaluation #1: Medical record is reviewed Patient symptoms are improved here in the ER Patient informed results questions answered Medical Decision Making - Medical Decision Making 18 female to the emergency room or see. Patient Dese for evaluation regards to overdose. Requiring Narcan. No recurrent symptoms here in the ER patient does have safe ride home and can be discharged Disposition Clinical Impression: Accidental drug overdose, Drug overdose Disposition: HOME SELF-CARE Condition: Fair Instructions (If sedation given, give patient instructions): Adult Overdose (ED) Is patient prescribed a controlled substance at d/c from ED?: No Referrals: None,Stated [Primary Care Provider] - 1-2 days
[2021-07-28] MEDS: IBUPROFEN 600 MG TAB PO STA (04:46)
[2021-07-28] MEDS: ALBUTEROL NEBULIZED 2.5 MG/3 ML INHALATION STA (05:13)
[2021-07-28 05:40] VITALS: BP 125/99; PULSE 71; RESP 20; TEMP 98.4
== END 2021-07-28 05:32 | disposition home or self-care (01) ==
LOC: EC 03:59
DX: T50.901A Poisoning by unspecified drugs, medicaments and biological substances, accidental (unintentional), initial encounter (principal); J45.909 Unspecified asthma, uncomplicated; G43.909 Migraine, unspecified, not intractable, without status migrainosus; F17.200 Nicotine dependence, unspecified, uncomplicated; Z72.89 Other problems related to lifestyle
CPT/HCPCS: 99284

== ENCOUNTER 2021-07-28 13:01 | Emergency (ER) | payer OTHER ==
[2021-07-28 13:05] VITALS: BP 146/100; PULSE 94; RESP 18; TEMP 97.5
[2021-07-28] MEDS ORDERED: SODIUM CHLORIDE 0.9% 1,000 ML IV STA (13:12)
[2021-07-28] MEDS ORDERED: diphenhydrAMINE 50 MG/ML 1 ML VIAL IVP STA (13:12)
[2021-07-28] MEDS ORDERED: MORPHINE SULFATE 4 MG/ML SYRINGE IV STA (13:12)
[2021-07-28] MEDS ORDERED: METOCLOPRAMIDE 5 MG/ML 2 ML VIAL IVP STA (13:12)
[2021-07-28] MEDS ORDERED: MAGNESIUM SULFATE-D5W PMX 1 GM in DEXTROSE/WATER 1 100ML.BAG IVPB ONE (13:19)
[2021-07-28 14:08] LABS: Basophils % (A) 0 %; Eosinophils # (A) 0.1 k/uL (0-0.7); Eosinophils % (A) 1 %; HCT 38.6 % (34.0-46.0); Lymphocytes % (A) 12 %; MCH 30.5 pg (25.0-35.0); MCHC 33.7 g/dL (31.0-37.0); MCV 90.6 fL (80.0-100.0); Mean Platelet Volume 7.5; Monocytes # (A) 0.8 k/uL (0-1.0); Monocytes % (A) 5 %; Neutrophils # (A) 13.5 k/uL (1.3-7.7); Neutrophils % (A) 82 %; Platelet Count 249 k/uL (150-450); RBC 4.26 m/uL (3.80-5.40); RDW 14.3 % (11.5-15.5); WBC 16.6 k/uL (3.8-10.6)
--- NOTE | 2021-07-28 14:08 | ED ---
General Adult HPI - General Chief complaint: Headache Stated complaint: Headache/vomiting/vision issues Time Seen by Provider: 07/28/21 13:09 Source: patient, RN notes reviewed, old records reviewed Mode of arrival: ambulatory Limitations: no limitations - History of Present Illness Initial comments: 26-year-old female presenting for evaluation of headache. Patient's headache has been present for approximately 3 hours prior to arrival. She has history of migraine headaches but states that about one year since her previous headache. She took Aleve at home with only very minimal improvement in symptoms. She's had nausea without significant vomiting. She does admit to IV heroin use yesterday and believes this may have been laced with fentanyl. - Related Data Home Medications Medication Instructions Recorded Confirmed cloNIDine HCL [Catapres] 0.1 mg PO BID 01/05/21 07/28/21 ALPRAZolam [Xanax] 2 mg PO DAILY PRN 07/28/21 07/28/21 Acetaminophen Tab [Tylenol Tab] 1,000 mg PO Q6HR PRN 07/28/21 07/28/21 Ibuprofen [Advil] 400 mg PO Q8HR PRN 07/28/21 07/28/21 Ibuprofen [Motrin Ib] 1,000 mg PO Q8H PRN 07/28/21 07/28/21 Naproxen Sodium [Aleve] 220 mg PO DAILY PRN 07/28/21 07/28/21 Remeron Unknown Dose 1 tab PO HS 07/28/21 07/28/21 Seroquel Unknown Dose 1 tab PO HS 07/28/21 07/28/21 Wellbutrin Unknown Dose 1 tab PO HS 07/28/21 07/28/21 Allergies Allergy/AdvReac Type Severity Reaction Status Date / Time Penicillins Allergy Rash/Hives Verified 07/28/21 15:46 sulfamethoxazole Allergy Rash/Hives Verified 07/28/21 15:46 [From Bactrim] trimethoprim [From Bactrim] Allergy Rash/Hives Verified 07/28/21 15:46 erythromycin base AdvReac Nausea & Verified 07/28/21 15:46 Vomiting Review of Systems ROS Statement: Those systems with pertinent positive or pertinent negative responses have been documented in the HPI. ROS Other: All systems not noted in ROS Statement are negative. Past Medical History Past Medical History: Asthma Additional Past Medical History / Comment(s): migraines History of Any Multi-Drug Resistant Organisms: None Reported Past Surgical History: No Surgical Hx Reported Additional Past Surgical History / Comment(s): Left big toe surgery Past Anesthesia/Blood Transfusion Reactions: No Reported Reaction Past Psychological History: No Psychological Hx Reported Smoking Status: Current every day smoker Past Alcohol Use History: Occasional Past Drug Use History: Heroin, Methamphetamine - Past Family History Mother Family Medical History: No Reported History Additional Family Medical History / Comment(s): Epilepsy Father Family Medical History: Hypertension General Exam Limitations: no limitations General appearance: alert, in no apparent distress Head exam: Present: atraumatic, normocephalic Eye exam: Present: normal appearance, PERRL ENT exam: Present: mucous membranes dry Neck exam: Present: normal inspection. Absent: tenderness, meningismus Respiratory exam: Present: normal lung sounds bilaterally. Absent: respiratory distress, wheezes Cardiovascular Exam: Present: regular rate, normal rhythm GI/Abdominal exam: Present: soft. Absent: distended, tenderness Extremities exam: Present: normal inspection, normal capillary refill. Absent: pedal edema Neurological exam: Present: alert, oriented X3, CN II-XII intact. Absent: motor sensory deficit Psychiatric exam: Present: normal affect, normal mood Skin exam: Present: warm, dry, intact. Absent: cyanosis, diaphoretic Course Vital Signs 07/28/21 13:02 Temperature 97.5 F L Pulse Rate 94 Respiratory 18 Rate Blood Pressure 146/100 O2 Sat by Pulse 98 Oximetry Medical Decision Making - Medical Decision Making 26-year-old female presents for evaluation of headache. Patient has history of migraine headache and states this is similar in character to previous headaches although she hasn't had one in about one year. She has no focal findings. The headache began approximately 3 to arrival. Symptomatic control workup is initiated. Patient had mild leukocytosis which would may be secondary to vomiting, no fever or other signs of infection. Patient has normal CMP. After initial round of medications for headache is improved but not completely resolved. She is given a second dose. On reevaluation she is feeling better and is eager for discharge. CAT scan findings are negative for intracranial hemorrhage or mass effect. There is a questionable lesion in the left frontal region. I did inform the patient this and that she should follow with her primary care physician for MRI to further characterize this. She is agreeable with this plan. She will discuss this with her primary care physician. - Lab Data Result diagrams: 07/28/21 13:56 07/28/21 13:56 Lab Results 07/28/21 07/28/21 07/28/21 Range/Units 13:56 13:56 14:38 WBC 16.6 H (3.8-10.6) k/uL RBC 4.26 (3.80-5.40) m/uL Hgb 13.0 (11.4-16.0) gm/dL Hct 38.6 (34.0-46.0) % MCV 90.6 (80.0-100.0) fL MCH 30.5 (25.0-35.0) pg MCHC 33.7 (31.0-37.0) g/dL RDW 14.3 (11.5-15.5) % Plt Count 249 (150-450) k/uL MPV 7.5 Neutrophils % 82 % Lymphocytes % 12 % Monocytes % 5 % Eosinophils % 1 % Basophils % 0 % Neutrophils # 13.5 H (1.3-7.7) k/uL Lymphocytes # 2.0 (1.0-4.8) k/uL Monocytes # 0.8 (0-1.0) k/uL Eosinophils # 0.1 (0-0.7) k/uL Basophils # 0.0 (0-0.2) k/uL Sodium 132 L (137-145) mmol/L Potassium 4.0 (3.5-5.1) mmol/L Chloride 100 (98-107) mmol/L Carbon Dioxide 23 (22-30) mmol/L Anion Gap 9 mmol/L BUN 16 (7-17) mg/dL Creatinine 0.70 (0.52-1.04) mg/dL Est GFR (CKD-EPI)AfAm >90 (>60 ml/min/1.73 sqM) Est GFR (CKD-EPI)NonAf >90 (>60 ml/min/1.73 sqM) Glucose 135 H (74-99) mg/dL Calcium 9.2 (8.4-10.2) mg/dL Magnesium 1.9 (1.6-2.3) mg/dL Total Bilirubin 1.3 (0.2-1.3) mg/dL AST 57 H (14-36) U/L ALT 57 H (4-34) U/L Alkaline Phosphatase 73 (38-126) U/L Total Protein 7.5 (6.3-8.2) g/dL Albumin 4.6 (3.5-5.0) g/dL HCG, Quant <2.4 mIU/mL Urine Color Yellow Urine Appearance Cloudy H (Clear) Urine pH 5.5 (5.0-8.0) Ur Specific [place] 1.031 (1.001-1.035) Urine Protein Trace H (Negative) Urine Glucose (UA) Negative (Negative) Urine Ketones Negative (Negative) Urine Blood Negative (Negative) Urine Nitrite Negative (Negative) Urine Bilirubin Negative (Negative) Urine Urobilinogen <2.0 (<2.0) mg/dL Ur Leukocyte Esterase Trace H (Negative) Urine RBC 2 (0-5) /hpf Urine WBC 4 (0-5) /hpf Ur Squamous Epith Cells 4 (0-4) /hpf Urine Mucus Many H (None) /hpf Urine HCG, Qual (Not Detectd) 07/28/21 Range/Units 14:38 WBC (3.8-10.6) k/uL RBC (3.80-5.40) m/uL Hgb (11.4-16.0) gm/dL Hct (34.0-46.0) % MCV (80.0-100.0) fL MCH (25.0-35.0) pg MCHC (31.0-37.0) g/dL RDW (11.5-15.5) % Plt Count (150-450) k/uL MPV Neutrophils % % Lymphocytes % % Monocytes % % Eosinophils % % Basophils % % Neutrophils # (1.3-7.7) k/uL Lymphocytes # (1.0-4.8) k/uL Monocytes # (0-1.0) k/uL Eosinophils # (0-0.7) k/uL Basophils # (0-0.2) k/uL Sodium (137-145) mmol/L Potassium (3.5-5.1) mmol/L Chloride (98-107) mmol/L Carbon Dioxide (22-30) mmol/L Anion Gap mmol/L BUN (7-17) mg/dL Creatinine (0.52-1.04) mg/dL Est GFR (CKD-EPI)AfAm (>60 ml/min/1.73 sqM) Est GFR (CKD-EPI)NonAf (>60 ml/min/1.73 sqM) Glucose (74-99) mg/dL Calcium (8.4-10.2) mg/dL Magnesium (1.6-2.3) mg/dL Total Bilirubin (0.2-1.3) mg/dL AST (14-36) U/L ALT (4-34) U/L Alkaline Phosphatase (38-126) U/L Total Protein (6.3-8.2) g/dL Albumin (3.5-5.0) g/dL HCG, Quant mIU/mL Urine Color Urine Appearance (Clear) Urine pH (5.0-8.0) Ur Specific [place] (1.001-1.035) Urine Protein (Negative) Urine Glucose (UA) (Negative) Urine Ketones (Negative) Urine Blood (Negative) Urine Nitrite (Negative) Urine Bilirubin (Negative) Urine Urobilinogen (<2.0) mg/dL Ur Leukocyte Esterase (Negative) Urine RBC (0-5) /hpf Urine WBC (0-5) /hpf Ur Squamous Epith Cells (0-4) /hpf Urine Mucus (None) /hpf Urine HCG, Qual Not Detected (Not Detectd) Disposition Clinical Impression: Headache Disposition: HOME SELF-CARE Condition: Fair Instructions (If sedation given, give patient instructions): Acute Headache (ED) Additional Instructions: Please follow up with her primary care physician for possible MRI as an outpatient. Is patient prescribed a controlled substance at d/c from ED?: No Referrals: None,Stated [Primary Care Provider] - 1-2 days Abiodun Zhao DO [STAFF PHYSICIAN] - 1-2 days Time of Disposition: 18:07
[2021-07-28 14:17] LABS: ALT 57 U/L (4-34); AST 57 U/L (14-36); African American GFR (CKD) >90 (>60 ml/min/1.73 sqM); Albumin 4.6 g/dL (3.5-5.0); Alkaline Phosphatase 73 U/L (38-126); Anion Gap 9 mmol/L; Blood Urea Nitrogen 16 mg/dL (7-17); Calcium 9.2 mg/dL (8.4-10.2); Carbon Dioxide 23 mmol/L (22-30); Chloride 100 mmol/L (98-107); Glucose 135 mg/dL (74-99); Magnesium 1.9 mg/dL (1.6-2.3); Non-African American GFR(CKD) >90 (>60 ml/min/1.73 sqM); Sodium 132 mmol/L (137-145); Total Bilirubin 1.3 mg/dL (0.2-1.3); Total Protein 7.5 g/dL (6.3-8.2)
[2021-07-28] MEDS ORDERED: MORPHINE SULFATE 4 MG/ML SYRINGE IVP STA (14:32)
[2021-07-28 14:34] LABS: HCG,Quantitative Serum <2.4 mIU/mL
[2021-07-28 14:56] LABS: Appearance,Urine Cloudy (Clear); Bilirubin,Urine Negative (Negative); Blood,Urine Negative (Negative); Color,Urine Yellow; Glucose,Urine (UA) Negative (Negative); Ketones,Urine Negative (Negative); Leukocyte Esterase,Urine Trace (Negative); Mucus,Urine Many /hpf; Nitrite,Urine Negative (Negative); PH, Urine 5.5 (5.0-8.0); Protein,Urine Trace (Negative); RBC,Urine 2 /hpf (0-5); Specific Gravity,Urine 1.031 (1.001-1.035); Squamous Epithelial Cell,Urine 4 /hpf (0-4); Urobilinogen,Urine <2.0 mg/dL (<2.0); WBC,Urine 4 /hpf (0-5)
--- NOTE | 2021-07-28 16:38 | CT ---
EXAMINATION TYPE: CT brain wo con DATE OF EXAM: 07/28/2021 COMPARISON: 05/20/2021 HISTORY: Headache. TECHNIQUE: CT scan of the brain without contrast CT DLP: 1088.4 mGycm Automated exposure control for dose reduction was used. FINDINGS: No acute intracranial hemorrhage midline shift or mass effect. Hewitt-white matter differentiation is preserved. CSF spaces and ventricles are normal configuration. Focal low-attenuation in the left frontal lobe seen on image 26 series 201 no significant change in t he interval of unknown clinical significance, may be a continuation of the anterior horn of the left lateral ventricle. No acute intraorbital, osseous or soft tissue abnormalities seen. No significant abnormality seen in the paranasal sinuses or mastoid air cells. IMPRESSION: 1. NO ACUTE INTRACRANIAL ABNORMALITY. 2. FOCAL LOW ATTENUATION IN THE LEFT FRONTAL LOBE, NO SIGNIFICANT CHANGE IN THE INTERVAL. MAY BE A CO NTINUATION OF THE ANTERIOR HORN OF THE LEFT LATERAL VENTRICLE, CANNOT EXCLUDE LEFT FRONTAL LOBE GRAHAM N. CLINICAL AND BRAIN MRI CORRELATION RECOMMENDED.
[2021-07-28] MEDS ORDERED: KETOROLAC 15 MG/ML 1 ML VIAL IVP STA (16:45)
[2021-07-28] MEDS ORDERED: SODIUM CHLORIDE 0.9% 500 ML 500 ML IV ONE (16:45)
[2021-07-28] MEDS ORDERED: ONDANSETRON 4 MG/2 ML VIAL IVP STA (16:45)
== END 2021-07-28 18:16 | disposition home or self-care (01) ==
LOC: EC 13:01
DX: R51.9 Headache, unspecified (principal); J45.909 Unspecified asthma, uncomplicated; F17.200 Nicotine dependence, unspecified, uncomplicated; F15.90 Other stimulant use, unspecified, uncomplicated; F11.90 Opioid use, unspecified, uncomplicated; Z79.899 Other long term (current) drug therapy
CPT/HCPCS: 36415; 80053; 83735; 85025; 81001; 81025; 84702; 70450; 99284; 96365; 96375 ×5; 96361 ×2; J2270; J1200; J2765; J2405; J3475; J1885

== ENCOUNTER 2021-07-31 19:18 | Inpatient (IN) | payer OTHER ==
--- NOTE | 2021-07-31 22:19 | ED ---
Seizure HPI - General Chief Complaint: Seizure Stated Complaint: Seizure Time Seen by Provider: 07/31/21 21:58 Source: family, EMS Mode of arrival: EMS Limitations: no limitations - History of Present Illness Initial Comments: This patient is a 26-year-old woman brought to be evaluated for suspected seizures. The patient appears to be post ictal at my exam. I is reported that the patient had a seizure at home and then came here to be evaluated. While waiting to be seen she reportedly had another episode of loss of consciousness and shaking. I am given some history by the patient's mother who states that she was also here about 3 days ago for the same. The patient has been having headaches and may have had seizures going back a couple of months and then has not been able to follow up yet. She reportedly does have MRI coming up. Complaint: possible seizure -: hour(s) Description of Episode: loss of consciousness, tonic-clonic movement -: second(s) Witnessed: yes - by bystander Trauma: No Seizure History: none Place: home Possible Precipitating Event: none Treatments Prior to Arrival: none - Related Data Home Medications Medication Instructions Recorded Confirmed cloNIDine HCL [Catapres] 0.1 mg PO BID 01/05/21 07/31/21 ALPRAZolam [Xanax] 2 mg PO DAILY PRN 07/28/21 07/31/21 Acetaminophen Tab [Tylenol] 1,000 mg PO Q6HR PRN 07/28/21 07/31/21 Ibuprofen [Motrin Ib] 800 mg PO Q6H PRN 07/28/21 07/31/21 Mirtazapine [Remeron] 15 mg PO HS 07/31/21 07/31/21 QUEtiapine [SEROquel] 100 mg PO HS 07/31/21 07/31/21 buPROPion HCL [Wellbutrin XL] 150 mg PO HS 07/31/21 07/31/21 Previous Rx's Medication Instructions Recorded levETIRAcetam [Keppra] 500 mg PO Q12HR #14 tab 08/01/21 Allergies Allergy/AdvReac Type Severity Reaction Status Date / Time Penicillins Allergy Rash/Hives Verified 07/31/21 23:04 sulfamethoxazole Allergy Rash/Hives Verified 07/31/21 23:04 [From Bactrim] trimethoprim [From Bactrim] Allergy Rash/Hives Verified 07/31/21 23:04 erythromycin base AdvReac Nausea & Verified 07/31/21 23:04 Vomiting Review of Systems ROS Statement: Those systems with pertinent positive or pertinent negative responses have been documented in the HPI. ROS Other: All systems not noted in ROS Statement are negative. Constitutional: Denies: fever Cardiovascular: Denies: chest pain Gastrointestinal: Denies: abdominal pain Neurological: Reports: headache, other (Seizures) Past Medical History Past Medical History: Asthma, Seizure Disorder Additional Past Medical History / Comment(s): migraines History of Any Multi-Drug Resistant Organisms: None Reported Past Surgical History: No Surgical Hx Reported Additional Past Surgical History / Comment(s): Left big toe surgery Past Anesthesia/Blood Transfusion Reactions: No Reported Reaction Past Psychological History: Anxiety, Depression Smoking Status: Current every day smoker Past Alcohol Use History: Occasional Past Drug Use History: Heroin, Methamphetamine - Past Family History Mother Family Medical History: No Reported History Additional Family Medical History / Comment(s): Epilepsy Father Family Medical History: Hypertension General Exam Limitations: no limitations General appearance: obtunded (Patient appears to be postictal) Head exam: Present: atraumatic, normocephalic Eye exam: Present: normal appearance, PERRL. Absent: periorbital swelling, periorbital tenderness Neck exam: Present: normal inspection Respiratory exam: Present: normal lung sounds bilaterally. Absent: respiratory distress, wheezes, rales, rhonchi, stridor Cardiovascular Exam: Present: regular rate, normal rhythm, normal heart sounds. Absent: systolic murmur, diastolic murmur, rubs, gallop GI/Abdominal exam: Present: soft. Absent: distended, tenderness, guarding Extremities exam: Present: normal inspection, normal capillary refill Neurological exam: Present: altered, reflexes normal Skin exam: Present: warm, dry, intact, normal color, other (There are needle tracks the forearm). Absent: rash Course Vital Signs 07/31/21 07/31/21 08/01/21 19:53 23:01 00:52 Temperature 97.6 F Pulse Rate 92 89 91 Respiratory 18 12 16 Rate Blood Pressure 158/97 125/92 104/74 O2 Sat by Pulse 100 100 98 Oximetry 08/01/21 08/01/21 02:06 06:00 Temperature Pulse Rate 71 89 Respiratory 16 16 Rate Blood Pressure 103/69 92/53 O2 Sat by Pulse 98 98 Oximetry Medical Decision Making - Lab Data Result diagrams: 07/31/21 22:15 07/31/21 22:15 Lab Results 07/31/21 07/31/21 07/31/21 Range/Units 22:15 22:15 22:15 WBC 15.8 H (3.8-10.6) k/uL RBC 4.11 (3.80-5.40) m/uL Hgb 12.6 (11.4-16.0) gm/dL Hct 38.3 (34.0-46.0) % MCV 93.1 (80.0-100.0) fL MCH 30.6 (25.0-35.0) pg MCHC 32.8 (31.0-37.0) g/dL RDW 15.1 (11.5-15.5) % Plt Count 318 (150-450) k/uL MPV 7.3 Neutrophils % 62 % Lymphocytes % 30 % Monocytes % 5 % Eosinophils % 1 % Basophils % 1 % Neutrophils # 9.8 H (1.3-7.7) k/uL Lymphocytes # 4.7 (1.0-4.8) k/uL Monocytes # 0.8 (0-1.0) k/uL Eosinophils # 0.1 (0-0.7) k/uL Basophils # 0.1 (0-0.2) k/uL Sodium 138 (137-145) mmol/L Potassium 3.9 (3.5-5.1) mmol/L Chloride 107 (98-107) mmol/L Carbon Dioxide 23 (22-30) mmol/L Anion Gap 8 mmol/L BUN 16 (7-17) mg/dL Creatinine 0.69 (0.52-1.04) mg/dL Est GFR (CKD-EPI)AfAm >90 (>60 ml/min/1.73 sqM) Est GFR (CKD-EPI)NonAf >90 (>60 ml/min/1.73 sqM) Glucose 176 H (74-99) mg/dL Calcium 8.2 L (8.4-10.2) mg/dL Magnesium 2.1 (1.6-2.3) mg/dL Total Bilirubin 0.7 (0.2-1.3) mg/dL AST 28 (14-36) U/L ALT 27 (4-34) U/L Alkaline Phosphatase 72 (38-126) U/L Total Protein 7.0 (6.3-8.2) g/dL Albumin 4.2 (3.5-5.0) g/dL Urine Color Urine Appearance (Clear) Urine pH (5.0-8.0) Ur Specific [place] (1.001-1.035) Urine Protein (Negative) Urine Glucose (UA) (Negative) Urine Ketones (Negative) Urine Blood (Negative) Urine Nitrite (Negative) Urine Bilirubin (Negative) Urine Urobilinogen (<2.0) mg/dL Ur Leukocyte Esterase (Negative) Urine RBC (0-5) /hpf Urine WBC (0-5) /hpf Ur Squamous Epith Cells (0-4) /hpf Urine Bacteria (None) /hpf Hyaline Casts (0-2) /lpf Urine Mucus (None) /hpf Urine HCG, Qual (Not Detectd) Urine Opiates Screen (NotDetected) Ur Oxycodone Screen (NotDetected) Urine Methadone Screen (NotDetected) Ur Propoxyphene Screen (NotDetected) Ur Barbiturates Screen (NotDetected) U Tricyclic Antidepress (NotDetected) Ur Phencyclidine Scrn (NotDetected) Ur Amphetamines Screen (NotDetected) U Methamphetamines Scrn (NotDetected) U Benzodiazepines Scrn (NotDetected) Urine Cocaine Screen (NotDetected) U Marijuana (THC) Screen (NotDetected) Serum Alcohol <10 mg/dL 07/31/21 07/31/21 Range/Units 22:59 22:59 WBC (3.8-10.6) k/uL RBC (3.80-5.40) m/uL Hgb (11.4-16.0) gm/dL Hct (34.0-46.0) % MCV (80.0-100.0) fL MCH (25.0-35.0) pg MCHC (31.0-37.0) g/dL RDW (11.5-15.5) % Plt Count (150-450) k/uL MPV Neutrophils % % Lymphocytes % % Monocytes % % Eosinophils % % Basophils % % Neutrophils # (1.3-7.7) k/uL Lymphocytes # (1.0-4.8) k/uL Monocytes # (0-1.0) k/uL Eosinophils # (0-0.7) k/uL Basophils # (0-0.2) k/uL Sodium (137-145) mmol/L Potassium (3.5-5.1) mmol/L Chloride (98-107) mmol/L Carbon Dioxide (22-30) mmol/L Anion Gap mmol/L BUN (7-17) mg/dL Creatinine (0.52-1.04) mg/dL Est GFR (CKD-EPI)AfAm (>60 ml/min/1.73 sqM) Est GFR (CKD-EPI)NonAf (>60 ml/min/1.73 sqM) Glucose (74-99) mg/dL Calcium (8.4-10.2) mg/dL Magnesium (1.6-2.3) mg/dL Total Bilirubin (0.2-1.3) mg/dL AST (14-36) U/L ALT (4-34) U/L Alkaline Phosphatase (38-126) U/L Total Protein (6.3-8.2) g/dL Albumin (3.5-5.0) g/dL Urine Color Yellow Urine Appearance Cloudy H (Clear) Urine pH 5.5 (5.0-8.0) Ur Specific [place] 1.023 (1.001-1.035) Urine Protein 1+ H (Negative) Urine Glucose (UA) Negative (Negative) Urine Ketones Negative (Negative) Urine Blood Negative (Negative) Urine Nitrite Negative (Negative) Urine Bilirubin Negative (Negative) Urine Urobilinogen <2.0 (<2.0) mg/dL Ur Leukocyte Esterase Small H (Negative) Urine RBC 1 (0-5) /hpf Urine WBC 22 H (0-5) /hpf Ur Squamous Epith Cells 8 H (0-4) /hpf Urine Bacteria Rare H (None) /hpf Hyaline Casts 7 H (0-2) /lpf Urine Mucus Few H (None) /hpf Urine HCG, Qual Not Detected (Not Detectd) Urine Opiates Screen Not Detected (NotDetected) Ur Oxycodone Screen Not Detected (NotDetected) Urine Methadone Screen Not Detected (NotDetected) Ur Propoxyphene Screen Not Detected (NotDetected) Ur Barbiturates Screen Not Detected (NotDetected) U Tricyclic Antidepress Detected H (NotDetected) Ur Phencyclidine Scrn Not Detected (NotDetected) Ur Amphetamines Screen Not Detected (NotDetected) U Methamphetamines Scrn Not Detected (NotDetected) U Benzodiazepines Scrn Not Detected (NotDetected) Urine Cocaine Screen Not Detected (NotDetected) U Marijuana (THC) Screen Not Detected (NotDetected) Serum Alcohol mg/dL - EKG Data -: EKG Interpreted by Ms EKG shows normal: sinus rhythm, axis (Normal), intervals (Normal), QRS complexes (Normal), ST-T waves (Normal) Rate: tachycardia (Rate 106) Disposition Clinical Impression: Generalized seizure Disposition: HOME SELF-CARE Condition: Good Is patient prescribed a controlled substance at d/c from ED?: No
[2021-07-31 22:31] LABS: Basophils # (A) 0.1 k/uL (0-0.2); Basophils % (A) 1 %; Eosinophils # (A) 0.1 k/uL (0-0.7); Eosinophils % (A) 1 %; HCT 38.3 % (34.0-46.0); HGB 12.6 gm/dL (11.4-16.0); Lymphocytes # (A) 4.7 k/uL (1.0-4.8); Lymphocytes % (A) 30 %; MCH 30.6 pg (25.0-35.0); MCHC 32.8 g/dL (31.0-37.0); MCV 93.1 fL (80.0-100.0); Mean Platelet Volume 7.3; Monocytes # (A) 0.8 k/uL (0-1.0); Monocytes % (A) 5 %; Neutrophils # (A) 9.8 k/uL (1.3-7.7); Neutrophils % (A) 62 %; Platelet Count 318 k/uL (150-450); RBC 4.11 m/uL (3.80-5.40); RDW 15.1 % (11.5-15.5); WBC 15.8 k/uL (3.8-10.6)
[2021-07-31 22:53] LABS: ALT 27 U/L (4-34); AST 28 U/L (14-36); African American GFR (CKD) >90 (>60 ml/min/1.73 sqM); Albumin 4.2 g/dL (3.5-5.0); Alcohol <10 mg/dL; Alkaline Phosphatase 72 U/L (38-126); Anion Gap 8 mmol/L; Blood Urea Nitrogen 16 mg/dL (7-17); Calcium 8.2 mg/dL (8.4-10.2); Carbon Dioxide 23 mmol/L (22-30); Chloride 107 mmol/L (98-107); Glucose 176 mg/dL (74-99); Non-African American GFR(CKD) >90 (>60 ml/min/1.73 sqM); Potassium 3.9 mmol/L (3.5-5.1); Sodium 138 mmol/L (137-145); Total Bilirubin 0.7 mg/dL (0.2-1.3)
[2021-07-31 23:14] LABS: Appearance,Urine Cloudy (Clear); Bacteria,Urine Rare /hpf; Bilirubin,Urine Negative (Negative); Blood,Urine Negative (Negative); Color,Urine Yellow; Glucose,Urine (UA) Negative (Negative); Hyaline Casts,Urine 7 /lpf (0-2); Ketones,Urine Negative (Negative); Leukocyte Esterase,Urine Small (Negative); Mucus,Urine Few /hpf; Nitrite,Urine Negative (Negative); PH, Urine 5.5 (5.0-8.0); Protein,Urine 1+ (Negative); RBC,Urine 1 /hpf (0-5); Specific Gravity,Urine 1.023 (1.001-1.035); Squamous Epithelial Cell,Urine 8 /hpf (0-4); Urobilinogen,Urine <2.0 mg/dL (<2.0); WBC,Urine 22 /hpf (0-5)
[2021-07-31 23:21] LABS: Amphetamine Screen,Urine Not Detected (NotDetected); Benzodiazepines Screen,Urine Not Detected (NotDetected); Cocaine Screen,Urine Not Detected (NotDetected); Opiate Screen,Urine Not Detected (NotDetected); Phencyclidine Screen,Urine Not Detected (NotDetected); Tricyclic Antidepressant,Urine Detected (NotDetected); Urn Cannabinoid Scrn Not Detected (NotDetected)
[2021-07-31 23:22] LABS: Barbiturate Screen,Urine Not Detected (NotDetected); Methadone Screen, Urine Not Detected (NotDetected); Oxycodone Screen, Urine Not Detected (NotDetected)
[2021-08-01] MEDS ORDERED: levETIRAcetam 500 MG TAB PO STA (00:17)
[2021-08-01] MEDS ORDERED: NALOXONE 0.4 MG/ML 1 ML VIAL IV PRN (00:45)
[2021-08-01] MEDS ORDERED: ACETAMINOPHEN TAB 325 MG TAB PO PRN (00:45)
--- NOTE | 2021-08-01 10:09 | P.CNNES ---
History of Present Illness Consult date: 08/01/21 Requesting physician: Luis Hester Reason for Consult: seizure History of Present Illness: This is a 26-year-old woman with medical history of seizure, migraine, anxiety, heroin use and tobacco use who presented to the emergency department on 07/31/2021 for seizure-like activity. It seems 3 days prior to presented to the hospital she had a similar episode and she presented to our ED and it seems yesterday the patient had the seizure and while she was in the ED she had another episode of loss of consciousness shaken per the ED team. She stated that she has not followed up with anybody yet and she has an MRI that it's pending to be done. She said that she's been having seizure-like activity since summer and prior to episode she'll have the conus sparkling dots on her eyes and then she was told that she would have tonic-clonic seizure-like activity and would lose consciousness at times she would have urinary incontinence and foaming around the mouth. Patient denies a being on any antiepileptic drugs. She feels that these episodes started after her Xanax was stopped in December 2020. She uses IV heroin the last time she used it was 3 days ago. He smokes half a pack per day for years. She denies of alcohol use. Patient has migraine for years now. In the past was incarcerated and could not get the details. Regarding the history she wasn't exactly sure but thinks was normal. There is a family history of seizure in which her mom has seizure. Patient is on Wellbutrin 150 mg daily at bedtime, Seroquel 100 mg daily at bedtime, Remeron 15 mg daily at bedtime, Xanax 2 mg daily when necessary, clonidine 0.1 mg 1 tablet twice a day. Some other workup in the hospital consisted of: Initial vital signs was blood pressure 158/97, heart rate of 92, respiratory of 18, temperature of 97.6 Fahrenheit oral and pulse ox on percent room air. Initial white blood cells 15.8 and neutrophils 9.8 otherwise the rest of the CBC with differential is unremarkable. Initial serum glucose is 176 and calcium is 8.2 otherwise rest of the chemistry panel is normal. AST and ALT is within normal limits. Urine drug screen is positive for tricyclic otherwise nondetected and serum alcohol was less than 10. Patient had a CT of the scan on 07/28/2021 and it's reported as no acute intracranial abnormality. Focal low attenuation in the left frontal lobe, no significant change in the interval. May be a continuation of the anterior horn of the left lateral ventricle. Cannot exclude left frontal lobe lesion. Clinical and brain MRI correlation recommended. I personally reviewed the CT of the head there is no acute or subacute ischemia and there is no intracranial hemorrhage. It appears that the patient has cystic-like lesion that small over the left left frontal subcortical without any edema. And it seems that the patient presented to our facility on 07/28/2021 for headache and she was not ified by the ED team to follow up as an outpatient and recommended MRI as well as outpatient. Review of Systems Review of system: The 12 point system was reviewed and apparent positive and negative per HPI. Past Medical History Past Medical History: Asthma, Seizure Disorder Additional Past Medical History / Comment(s): migraines History of Any Multi-Drug Resistant Organisms: None Reported Past Surgical History: No Surgical Hx Reported Additional Past Surgical History / Comment(s): Left big toe surgery Past Anesthesia/Blood Transfusion Reactions: No Reported Reaction Past Psychological History: Anxiety, Depression Smoking Status: Current every day smoker Past Alcohol Use History: Occasional Past Drug Use History: Heroin, Methamphetamine - Past Family History Mother Family Medical History: No Reported History Additional Family Medical History / Comment(s): Epilepsy Father Family Medical History: Hypertension Medications and Allergies Home Medications Medication Instructions Recorded Confirmed Type cloNIDine HCL [Catapres] 0.1 mg PO BID 01/05/21 07/31/21 History ALPRAZolam [Xanax] 2 mg PO DAILY PRN 07/28/21 07/31/21 History Acetaminophen Tab [Tylenol Tab] 1,000 mg PO Q6HR PRN 07/28/21 07/31/21 History Ibuprofen [Motrin Ib] 800 mg PO Q6H PRN 07/28/21 07/31/21 History Mirtazapine [Remeron] 15 mg PO HS 07/31/21 07/31/21 History QUEtiapine [SEROquel] 100 mg PO HS 07/31/21 07/31/21 History buPROPion HCL [Wellbutrin XL] 150 mg PO HS 07/31/21 07/31/21 History levETIRAcetam [Keppra] 500 mg PO Q12HR #14 tab 08/01/21 Rx Allergies Allergy/AdvReac Type Severity Reaction Status Date / Time Penicillins Allergy Rash/Hives Verified 07/31/21 23:04 sulfamethoxazole Allergy Rash/Hives Verified 07/31/21 23:04 [From Bactrim] trimethoprim [From Bactrim] Allergy Rash/Hives Verified 07/31/21 23:04 erythromycin base AdvReac Nausea & Verified 07/31/21 23:04 Vomiting Physical Examination - Vital Signs Vital Signs: Vital Signs Temp Pulse Resp BP Pulse Ox 08/01/21 06:00 89 16 92/53 98 08/01/21 02:06 71 16 103/69 98 08/01/21 00:52 91 16 104/74 98 07/31/21 23:01 89 12 125/92 100 07/31/21 19:53 97.6 F 92 18 158/97 100 Intake and Output 07/31/21 08/01/21 08/01/21 22:59 06:59 14:59 Other: Weight 65.771 kg GENERAL: The patient is lying in bed and is not in acute distress. CHEST: The heart rate is regular rate rhythm. No murmurs to auscultation. No carotid bruit bilaterally. LUNG: Clear to auscultation bilaterally no wheezing noted throughout. Not labored breathing. ABDOMEN/GI: Bowel sounds present in all 4 quadrants. No tenderness to palpation throughout. NEUROLOGICAL: Higher mental function: The patient is awake, alert, oriented to self, place and time. Patient is following commands. No aphasia and no neglect. Cranial nerves: The pupils are round, equal and reactive to light and accommodation. Visual mckenzie are full to confrontation throughout. Extraocular movement is intact no nystagmus is noted. Facial sensation is normal to touch throughout. The facial strength is normal throughout. Hearing is normal bilaterally to hand rub. Tongue is midline and moved [id number] without any difficulty. No dysarthria is noted. Shoulder shrug is normal bilaterally. Motor: Gait is normal. The strength is 5 over 5 throughout. Normal tone and bulk. Cerebellum: Normal finger to nose heel to patel bilaterally. Sensation: Sensation is normal to touch throughout. Reflexes (right/left): 2+ throughout. Plantars are downgoing bilaterally. Results - Laboratory Findings CBC and BMP: 07/31/21 22:15 07/31/21 22:15 Abnormal Lab Findings: Abnormal Labs 07/31/21 07/31/21 07/31/21 22:15 22:15 22:59 WBC 15.8 H Neutrophils # 9.8 H Glucose 176 H Calcium 8.2 L Urine Appearance Cloudy H Urine Protein 1+ H Ur Leukocyte Esterase Small H Urine WBC 22 H Ur Squamous Epith Cells 8 H Urine Bacteria Rare H Hyaline Casts 7 H Urine Mucus Few H U Tricyclic Antidepress Detected H Assessment and Plan Assessment: Breakthrough seizure. Rule out mass on left frontal. Patient is not on any antiepileptic drug Suspicious left frontal lesion on CT of the head on the 07/28/2021 History of migraine Heroin use and last use was 3 days ago Tobacco use smokes half a pack a day for years There is family history of seizure Plan: I started the patient on Topamax 50 motor gram one tablet twice a day which helps both with migraine and has antiepileptic benefit. I discussed with the patient regarding the side effects of Topamax of causing her confusion, weight loss, kidney stones, some memory loss, numbness in the hands. I ordered MRI of the brain with and without especially with reported left frontal region on CT and was suppose to get MRI as outpatient but since having seizure will get it as inpatient. An EEG is ordered and is pending Continue neuro checks Place the patient on seizure precaution seizure pads Patient was counseled on tobacco cessation and heroin cessation. Consulted psychiatry team. Recommend avoiding Wellbutrin since can lower seizure threshold. Patient is on Remeron and recommend switching to something else. We'll defer the rest of medical management to the primary team Because of the patient's seizures per the [place] DMV she is advised to avoid driving for 6 month until seizure is controlled. She is to avoid the heights, swimming unassisted and using heavy machinery. Patient needs to follow up with a neurologist as an outpatient within 1-2 weeks. The plan was discussed with the patient in detail and all her pressure were answered. Also discussed with her nurse. Thank you for the consultation Elian Schilling M.D. Neuro-hospitalist Time with Patient: Greater than 30
[2021-08-01] MEDS ORDERED: LORazepam 2 MG/ML INJ IV PRN (10:24)
[2021-08-01] MEDS: TOPIRAMATE 25 MG TAB PO SCH ×2 (12:47→21:12)
--- NOTE | 2021-08-01 14:08 | EEG ---
ELECTROENCEPHALOGRAM REPORT DATE OF SERVICE: 08/01/2021. CLINICAL HISTORY: This is a 26-year-old woman with a history of migraine and has been having seizure-like activity since the summer of 2020 and continues to have seizure-like activity. The video EEG is obtained to evaluate for seizure and epileptiform activity. Relevant medication: Keppra. EEG TYPE: A routine 21-channel EEG is performed with video using the 10/20 electrode placement system. DESCRIPTION: Wakefulness and drowsiness are obtained. During wakefulness the posterior- dominant rhythm consists of low to moderate voltage that is well modulated and well sustained of 9 to 10 hertz activity. There is no physiological stage 2 sleep architecture seen. There is no focal slowing. Interictal and ictal is none. ACTIVATION PROCEDURE: Photic stimulation did not evoke a posterior driving response. There is no abnormality during the photic stimulation. Hyperventilation is not performed. CLINICAL INTERPRETATION: This is a normal routine EEG. There is no focal slowing, epileptiform discharges or seizure on the EEG. Clinical correlation is recommended. KELLI / DAVIDN: [id number] / CUCA
[2021-08-01] MEDS ORDERED: ALPRAZolam 1 MG TAB PO PRN (14:53)
[2021-08-01] MEDS ORDERED: IBUPROFEN 200 MG TAB PO PRN (14:53)
--- NOTE | 2021-08-01 19:22 | MR ---
EXAMINATION TYPE: MR brain wo con DATE OF EXAM: 08/01/2021 COMPARISON: None HISTORY: Seizure, hx migraines. Abnormal CT. Ventricles have fairly normal size. There is no mass effect or midline shift. There is no sign of int racranial hemorrhage. Hewitt-white matter structures have fairly normal signal pattern. There is no brittany dence of cerebral edema. Diffusion images show no sign of an acute infarct. The brainstem is intact. Corpus callosum appears normal. Sella turcica is normal. There is no evidenc e of orbital mass. IMPRESSION: Negative MRI scan of the brain. No evidence of any hewitt or white matter disease.
--- NOTE | 2021-08-01 20:25 | HP ---
HISTORY AND PHYSICAL CHIEF COMPLAINT: Seizure. HISTORY OF PRESENT ILLNESS: This is another admission for this 26-year-old white female. She has had some difficulty over the last year or two with some relationship issues, and then she got into drugs. She had some serious problems and actually went into rehab last fall at [facility]. She got out and was trying to do well but failed and started taking drugs again. She then recently went to penitentiary for a short period of time. She came into the emergency room this time, having had a seizure. She has had some seizures in the past. This is likely related to her substance use and abuse, but she says that she has had seizures when she was not taking drugs. Before I went into see the patient, the nurse reported that they had found drugs in her room and called the police. She has had no headaches, neurologic problems, head injuries, etc. REVIEW OF SYSTEMS: She has had no change in vision or hearing, chest pain, shortness of breath, cough, hemoptysis, hypertension, abdominal pain, urinary complaints, renal failure, hepatitis, etc. Past medical history, family history, and personal and social histories reveal that she is on numerous medications, including clonidine, Seroquel, Remeron and Wellbutrin. She is supposed to follow up with [facility], but has not. PHYSICAL EXAMINATION: Blood pressure is 125/86 with a pulse of 83, respirations of 33, and she is afebrile. In general she appeared to be overweight and in no acute distress. Skin color is normal. Skin is warm, dry. Lymph nodes are not enlarged. Head, ears, eyes, nose, mouth and throat were normal. Neck veins were not distended. Thyroid is not enlarged. Chest is clear. Cardiac exam is normal. Abdomen is soft, nontender. Extremities are normal. Neurologically she is intact. She is admitted to the hospital with diagnoses: 1. Seizure disorder. 2. Drug abuse, including heroin. 3. Depression. PLAN: 1. Bedrest. 2. IV fluids. 3. Seizure precautions. 4. Consult Neurology. 5. EEG. 6. CT of the brain. 7. Drug screen. MMODL / IJN: [id number] /
[2021-08-01] MEDS ORDERED: MIRTAZAPINE 15 MG TAB PO SCH (21:00)
[2021-08-01] MEDS ORDERED: QUEtiapine 100 MG TAB PO SCH (21:00)
[2021-08-01] MEDS ORDERED: buPROPion XL 150 MG TAB.ER.24H PO SCH (21:00)
[2021-08-01] MEDS: cloNIDine HCL 0.1 MG TAB PO SCH (21:13)
[2021-08-02 08:13] VITALS: BP 92/55; PULSE 79; RESP 14; TEMP 98.3
[2021-08-02] MEDS: TOPIRAMATE 25 MG TAB PO SCH (08:19)
[2021-08-02] MEDS: cloNIDine HCL 0.1 MG TAB PO SCH (08:19)
--- NOTE | 2021-08-02 11:30 | P.PN ---
Subjective Progress Note Date: 08/02/21 Patient was seen at bedside and per nurse no further seizure-like activities. she feels her entire body is weak. It seems that yesterday in the afternoon, the patient was found by nursing staff and thought she was ?using drugs in the bathroom with white power substance out Sec[employer] was called and she was searched and several syringes were found, vap pen, pills and white power substance in napkin. Objective - Vital Signs Vital signs: Vital Signs Temp 98.3 F 08/02/21 08:00 Pulse 79 08/02/21 08:00 Resp 14 08/02/21 08:00 BP 92/55 08/02/21 08:00 Pulse Ox 98 08/02/21 08:00 Intake & Output 08/01/21 08/02/21 08/02/21 18:59 06:59 18:59 Intake Total 500 Balance 500 Weight 65.771 kg Intake: Oral 500 Other: Voiding Method Toilet # Voids 1 - Exam GENERAL: The patient is lying in bed and is not in acute distress. NEUROLOGICAL: Higher mental function: The patient is awake, alert, oriented to self, place and time. Patient is following commands. No aphasia and no neglect. Cranial nerves: The pupils are round, equal and reactive to light and accommodation. Visual mckenzie are full to confrontation throughout. Extraocular movement is intact no nystagmus is noted. Facial sensation is normal to touch throughout. The facial strength is normal throughout. Hearing is normal bilaterally to hand rub. Tongue is midline and moved [id number] without any difficulty. No dysarthria is noted. Shoulder shrug is normal bilaterally. Motor: Gait is normal. The strength is 5 over 5 throughout. Normal tone and bulk. Cerebellum: Normal finger to nose heel to patel bilaterally. Sensation: Sensation is normal to touch throughout. Reflexes (right/left): 2+ throughout. Plantars are downgoing bilaterally. WORK-UP: Patient had a CT of the scan on 07/28/2021 and it's reported as no acute intracranial abnormality. Focal low attenuation in the left frontal lobe, no significant change in the interval. May be a continuation of the anterior horn of the left lateral ventricle. Cannot exclude left frontal lobe lesion. Clinical and brain MRI correlation recommended. I personally reviewed the CT of the head there is no acute or subacute ischemia and there is no intracranial hemorrhage. It appears that the patient has cystic-like lesion that small over the left left frontal subcortical without any edema. And it seems that the patient presented to our facility on 07/28/2021 for headache and she was notified by the ED team to follow up as an outpatient and recommended MRI as well as outpatient. MRI of the brain W/O is reported as negative MRI scan of the brain. No evidence of any underwood or white matter disease. Routine EEG on 08/01/2021 is normal. There is no focal slowing, epileptiform discharges or seizure on the EEG - Labs CBC & Chem 7: 07/31/21 22:15 07/31/21 22:15 Assessment and Plan Assessment: Breakthrough seizure. ?left frontal lesion on CT head but negative on MRI Brain w/o. Suspicious left frontal lesion on CT of the head on the 07/28/2021 but MRI Brain was negative. History of migraine Heroin use and last use was 3 days ago Tobacco use smokes half a pack a day for years There is family history of seizure Plan: * Continue Topamax 50mg one tablet twice a day (started during this admission) which helps both with migraine and has antiepileptic benefit. I discussed with the patient regarding the side effects of Topamax of causing her confusion, weight loss, kidney stones, some memory loss, numbness in the hands. * I requested MRI Brain w/ and w/o but only had w/o and it was negative. Recommend MRI Brain w/ as outpatient to rule out any lesion over left frontal that was seen on CT head * Routine EEG is normal. * Patient was notified to avoid getting since there is increase risk of teratogenic especially with her history of seizure, medication use and her drug use. * Continue neuro checks * Continue seizure precaution seizure pads * Patient was counseled on tobacco cessation and heroin cessation. Yesterday in the afternoon she was found by nurses-aid in the bathroom with white power out and security came and found syringes, vap pen and white power substance. * Consulted psychiatry team. Recommend avoiding Wellbutrin since can lower seizure threshold. Patient is on Remeron and recommend switching to something else. * We'll defer the rest of medical management to the primary team * Because of the patient's seizures per the [place] DMV she is advised to avoid driving for 6 month until seizure is controlled. She is to avoid the heights, swimming unassisted and using heavy machinery. * Patient needs to follow up with a neurologist as an outpatient within 1-2 weeks. The plan was discussed with the patient in detail and all her questions were answered. Also discussed with her nurse. There is no further neurological work-up. Elian Schilling M.D. Neuro-hospitalist Time with Patient: Less than 30
[2021-08-02] MEDS ORDERED: ALPRAZolam 0.5 MG TAB PO PRN (14:01)
[2021-08-02] MEDS ORDERED: OLANZapine 10 MG VIAL IM PRN (14:02)
[2021-08-02] MEDS ORDERED: OLANZapine 5 MG TAB PO PRN (14:02)
--- NOTE | 2021-08-02 14:17 | P.CN ---
Psychiatric Consult - . Consult date: 08/02/21 Consult:: 08/02/21 13:18 IDENTIFYING DATA: This patient is a 26-year-old female who currently lives with her mother in apartment has 2 kids who they currently live with the father. She is single and unemployed. REASON FOR REFERRAL: Psychiatry was consulted for heroin use and medication management. HISTORY OF PRESENT ILLNESS: The patient presented to the hospital on 07/31 with seizures and was apparently postictal. Patient's mother explained that this has been going on for the past several days and patient came in re-days ago for the same reason. Patient's urine drug screen was positive for TCAs. Patient had a computed tomography scan of her head which did not show any changes in EEG was normal MRI is pending. Patient apparently was caught with a weight powder substance while in the bathroom and has a history of heroin use. It was taken away by security. Patient was seen at the bedside today and agreeable to speak to staff writer. She was fairly defensive and argumentative with brighter about the incident. She claims that she wants to stop using drugs however when asked about different treatment options that are available patient refused to go to rehab and wants to cut back on her own. She was very defensive about her benzodiazepine use and states that she gets Ativan from one of her family members. She claims that she has been using Xanax since the age of 12. She claims that her mood is "fine" and relays a history chronically of depression and anxiety. She states that her sleep is "not that good" has a fair appetite. She claims that she does feel irritated at the hospital for "violating my rights" and going through her belongings . At this time patient denies any current suicidal or homical ideations, intent or plan. Patient denies any auditory, visual hallucinations and denies any paranoia or delusions. Patients admits to using heroin and claims that she recently relapsed. She was guarded about how much she was using. She claims that she smokes cigarettes. She states that she uses Xanax and Ativan as well and abuses it. PAST PSYCHIATRIC HISTORY: Patient has a a history of anxiety and depression. Polysubstance abuse.. Patient is currently on Wellbutrin and Xanax Remeron and Seroquel. Patient denies any previous psychiatric hospitalizations. Patient denies any psychiatric outpatient follow-up. She states that she currently follows up with her primary care provider. Patient denies any history of suicide attempts in the past. Past Medical History: Asthma, Seizure Disorder Additional Past Medical History / Comment(s): migraines ALLERGIES: as per EMR. CHEMICAL DEPENDENCY HISTORY: as per HPI. FAMILY PSYCHIATRIC/SUBSTANCE USE HISTORY: denies SOCIAL HISTORY: Patient was born and raised in [place] and also in [place]. She states that she completed up to the 10th grade in school. 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 She states that she is single and currently lives in an apartment with her mom. She claims that she has 2 kids that live with her father. She states that she was in intermediate in the past for violating probation. MENTAL STATUS EXAM: General Appearance: Patient appears to be wearing a pink outfit, stated age is alert, defensive argumentative. Patient appears to have fair hygiene and grooming wearing hospital gown with poor eye contact. Behavior: Patient is calmly lying in bed without any agitated behavior. Evas aly. Argumentative. Speech: Patient's speech is fluent and nonpressured. Mood/Affect: Patient reports their mood is "fine", affect is congruent Suicidality/Homicidality: Patient denies having any suicidal or homicidal ideation intent or plan. Perceptions: Patient denies any visual hallucinations and denies any auditory hallucinations Though content/process: There is no evidence of any delusional thought content and thought process is linear and goal-directed. Minimizing her drug use. Memory and concentration: AOX3, grossly intact for the purposes of this session. Can spell "WORLD" backwards Judgment and insight: poor IMPRESSIONS: Depressive disorder unspecified, rule out bipolar depression versus substance- induced mood disorder Opioid abuse Benzodiazepine abuse Nicotine dependence PLAN: -At this time patient DOES NOT meet criteria for inpatient psychiatric admission. -Would recommend the following medication changes/additions: Please attempt to titrate patient off of Xanax and Ativan and did not consider benzodiazepines in this patient as she is high risk for abuse, diverging, overdose and tolerance. Discontinued Wellbutrin as this will lower the seizure threshold. Can continue with Remeron and Seroquel as prescribed. -bridge worker to provide patient with outpatient mental health/psychiatry resources for appropriate follow up upon discharge -Seal Extrusion Operator spoke with patient about substance abuse and the harmful effects on medical and mental health, patient verbally understood and agreed. -bridge worker to provide patient substance use treatment resources including AA/NA meetings in the community. -staff writer spoke with pt about options for rehab however patient declined at this time. -Communicated plan to patient's nurse -Psychiatry will sign off at this time -Please contact with any questions.
--- NOTE | 2021-08-03 18:39 | DS ---
DISCHARGE SUMMARY DATE OF DISCHARGE: 08/02/2021 CHIEF COMPLAINT: Seizure disorder. HISTORY OF PRESENT ILLNESS AND PHYSICAL EXAMINATION: Details of this lady's history and physical can be found in the initial workup. LABORATORY STUDIES: While she was in the hospital she had laboratory studies, details of which can be found in the laboratory section of her chart. COURSE IN THE HOSPITAL: After admission she was placed on bedrest and started on intravenous fluids and IV antibiotics as well as seizure precautions and frequent monitoring of her vital signs and neurologic status. She was stable and doing well. It was felt that she could be discharged. She will go home on Depakote 500 mg b.i.d. and she will follow up in several days. FINAL DIAGNOSIS: 1. Grand mal seizure disorder. 2. History of narcotic addiction. OPERATIONS: None. CONSULTATION: Neurology. She is improved. KELLI / ROSALIE: [id number] /
== END 2021-08-02 16:26 | disposition home or self-care (01) | DRG 101 ==
LOC: EC 19:18 → 4SSUR 08-01 01:00
PROVIDERS: ADMIT Family Medicine; ATTEND Family Medicine
DX: G40.409 Other generalized epilepsy and epileptic syndromes, not intractable, without status epilepticus (principal); F11.20 Opioid dependence, uncomplicated; E66.3 Overweight; G43.909 Migraine, unspecified, not intractable, without status migrainosus; J45.909 Unspecified asthma, uncomplicated; F32.A Depression, unspecified; Z68.26 Body mass index [BMI] 26.0-26.9, adult; F41.9 Anxiety disorder, unspecified; F17.210 Nicotine dependence, cigarettes, uncomplicated; Z71.6 Tobacco abuse counseling; Z79.899 Other long term (current) drug therapy; Z87.39 Personal history of other diseases of the musculoskeletal system and connective tissue; Z56.0 Unemployment, unspecified; Z98.890 Other specified postprocedural states; Z88.1 Allergy status to other antibiotic agents; Z88.0 Allergy status to penicillin; Z88.2 Allergy status to sulfonamides; Z82.0 Family history of epilepsy and other diseases of the nervous system; Z82.49 Family history of ischemic heart disease and other diseases of the circulatory system
CPT/HCPCS: 36415; 70551; 80053; 80306; 80320; 81001; 81025; 83735; 85025; 93005; 94760; 95816; 96374; 99285

== ENCOUNTER 2021-08-03 20:30 | Emergency (ER) | payer OTHER ==
[2021-08-03 20:39] VITALS: RESP 18
--- NOTE | 2021-08-03 22:45 | ED ---
Overdose HPI - General Chief Complaint: Overdose Stated Complaint: Overdose Time Seen by Provider: 08/03/21 21:29 Source: patient, EMS, RN notes reviewed, old records reviewed, Caregiver Mode of arrival: EMS Limitations: no limitations - History of Present Illness Initial Comments: This is a 26-year-old female who came in with heroin overdose tonight. Patient was given Narcan administered by her mother. Patient presents today for evaluation of overdose, patient was recently prescribed medications also may have had a seizure tonight. Unable to get her medications filled other concerning the patient is without medications at home. Patient is not currently homicidal or suicidal. She is planning on entering rehab going on Suboxone this weekend. Complaint: intentional overdose, accidental overdose -: minutes(s) Intent: unwilling to say How Overdose Was Discovered: family/friend present at time Context: Intentional Overdose: drug/ETOH problems Context: Accidental Overdose: wanted to get high Associated Symptoms: depression Treatments Prior to Arrival: none - Related Data Home Medications Medication Instructions Recorded Confirmed cloNIDine HCL [Catapres] 0.1 mg PO BID 01/05/21 08/03/21 ALPRAZolam [Xanax] 2 mg PO DAILY PRN 07/28/21 08/03/21 Acetaminophen Tab [Tylenol] 1,000 mg PO Q6HR PRN 07/28/21 08/03/21 Ibuprofen [Motrin Ib] 800 mg PO Q6H PRN 07/28/21 08/03/21 Mirtazapine [Remeron] 15 mg PO HS 07/31/21 08/03/21 QUEtiapine [SEROquel] 100 mg PO HS 07/31/21 08/03/21 buPROPion HCL [Wellbutrin XL] 150 mg PO HS 07/31/21 08/03/21 Albuterol Sulfate [Proair Hfa] 2 puff INHALATION RT-BID PRN 08/03/21 08/03/21 Fluticasone/Salmeterol [Advair 1 puff INHALATION RT-BID 08/03/21 08/03/21 500-50 Diskus] Previous Rx's Medication Instructions Recorded levETIRAcetam [Keppra] 500 mg PO Q12HR #14 tab 08/01/21 Allergies Allergy/AdvReac Type Severity Reaction Status Date / Time Penicillins Allergy Rash/Hives Verified 07/31/21 23:04 sulfamethoxazole Allergy Rash/Hives Verified 07/31/21 23:04 [From Bactrim] trimethoprim [From Bactrim] Allergy Rash/Hives Verified 07/31/21 23:04 erythromycin base AdvReac Nausea & Verified 07/31/21 23:04 Vomiting Review of Systems ROS Statement: Those systems with pertinent positive or pertinent negative responses have been documented in the HPI. ROS Other: All systems not noted in ROS Statement are negative. Past Medical History Past Medical History: Asthma, Seizure Disorder Additional Past Medical History / Comment(s): migraines History of Any Multi-Drug Resistant Organisms: None Reported Past Surgical History: No Surgical Hx Reported Additional Past Surgical History / Comment(s): Left big toe surgery Past Anesthesia/Blood Transfusion Reactions: No Reported Reaction Past Psychological History: Anxiety, Depression Smoking Status: Current every day smoker Past Alcohol Use History: Occasional Past Drug Use History: Heroin, Marijuana, Methamphetamine - Past Family History Mother Family Medical History: No Reported History Additional Family Medical History / Comment(s): Epilepsy Father Family Medical History: Hypertension General Exam General appearance: alert, in no apparent distress Head exam: Present: atraumatic, normocephalic, normal inspection Eye exam: Present: normal appearance, PERRL, EOMI. Absent: scleral icterus, conjunctival injection, periorbital swelling ENT exam: Present: normal exam, mucous membranes moist Neck exam: Present: normal inspection. Absent: tenderness, meningismus, lymphadenopathy Respiratory exam: Present: normal lung sounds bilaterally. Absent: respiratory distress, wheezes, rales, rhonchi, stridor Cardiovascular Exam: Present: regular rate, normal rhythm, normal heart sounds. Absent: systolic murmur, diastolic murmur, rubs, gallop, clicks GI/Abdominal exam: Present: soft, normal bowel sounds. Absent: distended, tenderness, guarding, rebound, rigid Extremities exam: Present: normal inspection, full ROM, normal capillary refill. Absent: tenderness, pedal edema, joint swelling, calf tenderness Back exam: Present: normal inspection Neurological exam: Present: alert, oriented X3, CN II-XII intact Psychiatric exam: Present: normal affect, normal mood Skin exam: Present: warm, dry, intact, normal color. Absent: rash Course Vital Signs 08/03/21 08/03/21 20:32 22:14 Temperature 98.2 F Pulse Rate 111 H 101 H Respiratory 18 18 Rate Blood Pressure 124/93 110/87 O2 Sat by Pulse 100 95 Oximetry - Reevaluation(s) Reevaluation #1: 08/04/21 00:37 medical record is reviewed Reevaluation #2: 08/04/21 00:37 patient remains awake alert here in the ER Reevaluation #3: 08/04/21 00:38 patient seen and evaluated by psychiatry here in the ER Medical Decision Making - Medical Decision Making 26 female to the emergency department today. Patient presents today for evaluation regards to overdose. Patient was given Narcan and seen by psychiatry here in the ER. Patient scheduled to go on Suboxone this weekend, overdoses accidental not homicidal or suicidal can be discharged home Disposition Clinical Impression: Poisoning by opiates and related narcotics, other, Drug overdose, Accidental drug overdose Disposition: HOME SELF-CARE Condition: Good Instructions (If sedation given, give patient instructions): Adult Overdose (ED) Is patient prescribed a controlled substance at d/c from ED?: No Referrals: Eugene Romero MD [Primary Care Provider] - 1-2 days
[2021-08-04 01:48] VITALS: BP 127/89; PULSE 87; TEMP 98.7
== END 2021-08-04 00:45 | disposition home or self-care (01) ==
LOC: EC 20:30
DX: T40.1X1A Poisoning by heroin, accidental (unintentional), initial encounter (principal); J45.909 Unspecified asthma, uncomplicated; G40.909 Epilepsy, unspecified, not intractable, without status epilepticus; F32.A Depression, unspecified; F41.9 Anxiety disorder, unspecified; F15.90 Other stimulant use, unspecified, uncomplicated; F12.90 Cannabis use, unspecified, uncomplicated; F17.200 Nicotine dependence, unspecified, uncomplicated; Z79.51 Long term (current) use of inhaled steroids; Z79.899 Other long term (current) drug therapy
CPT/HCPCS: 99284

== ENCOUNTER 2022-01-22 22:07 | Inpatient (IN) | payer MEDICAID, OTHER ==
[2022-01-22] MEDS ORDERED: SODIUM CHLORIDE 0.9% 1,000 ML IV STA (23:08)
--- NOTE | 2022-01-22 23:15 | ED ---
Psych HPI - General Chief Complaint: Psychiatric Symptoms Stated Complaint: mental eval Time Seen by Provider: 01/22/22 23:07 Source: patient, family, RN notes reviewed, old records reviewed Mode of arrival: wheelchair Limitations: no limitations - History of Present Illness Initial Comments: This is a 27-year-old female DF for evaluation. Patient presents today for evaluation regards to altered mental status. Patient found minimally responsive, mother brought to ER patient is a poor historian. Patient has been to this Hospital prior for some psychiatric illness. She is apparently homeless now per the mother. Patient has no complaints MD Complaint: altered mental status -: unknown Associated Psychiatric Symptoms: none History of same: Yes Quality: intermittent, getting worse Improves With: none Worsens With: medication, drug use Context: not taking psychiatric medications, significant life stressor Associated Symptoms: denies other symptoms Treatments Prior to Arrival: placed on mental health hold If Self Harm: admits thoughts of self harm - Related Data Home Medications Medication Instructions Recorded Confirmed cloNIDine HCL [Catapres] 0.1 mg PO BID 01/05/21 08/03/21 ALPRAZolam [Xanax] 2 mg PO DAILY PRN 07/28/21 08/03/21 Acetaminophen Tab [Tylenol] 1,000 mg PO Q6HR PRN 07/28/21 08/03/21 Ibuprofen [Motrin Ib] 800 mg PO Q6H PRN 07/28/21 08/03/21 Mirtazapine [Remeron] 15 mg PO HS 07/31/21 08/03/21 QUEtiapine [SEROquel] 100 mg PO HS 07/31/21 08/03/21 buPROPion HCL [Wellbutrin XL] 150 mg PO HS 07/31/21 08/03/21 Albuterol Sulfate [Proair Hfa] 2 puff INHALATION RT-BID PRN 08/03/21 08/03/21 Fluticasone Propion/Salmeterol 1 puff INHALATION RT-BID 08/03/21 08/03/21 [Advair 500-50 Diskus] Previous Rx's Medication Instructions Recorded levETIRAcetam [Keppra] 500 mg PO Q12HR #14 tab 08/01/21 Allergies Allergy/AdvReac Type Severity Reaction Status Date / Time Penicillins Allergy Rash/Hives Verified 01/22/22 22:24 sulfamethoxazole Allergy Rash/Hives Verified 01/22/22 22:24 [From Bactrim] trimethoprim [From Bactrim] Allergy Rash/Hives Verified 01/22/22 22:24 erythromycin base AdvReac Nausea & Verified 01/22/22 22:24 Vomiting Review of Systems ROS Statement: Those systems with pertinent positive or pertinent negative responses have been documented in the HPI. ROS Other: All systems not noted in ROS Statement are negative. Past Medical History Past Medical History: Asthma, Seizure Disorder Additional Past Medical History / Comment(s): migraines History of Any Multi-Drug Resistant Organisms: None Reported Past Surgical History: No Surgical Hx Reported Additional Past Surgical History / Comment(s): Left big toe surgery Past Anesthesia/Blood Transfusion Reactions: No Reported Reaction Past Psychological History: Anxiety, Depression Smoking Status: Current every day smoker Past Alcohol Use History: Occasional Past Drug Use History: Heroin, Marijuana, Methamphetamine - Past Family History Mother Family Medical History: No Reported History Additional Family Medical History / Comment(s): Epilepsy Father Family Medical History: Hypertension General Exam Limitations: altered mental status General appearance: alert, in no apparent distress, lethargic Head exam: Present: atraumatic, normocephalic, normal inspection Eye exam: Present: normal appearance, PERRL, EOMI. Absent: scleral icterus, conjunctival injection, periorbital swelling ENT exam: Present: normal exam, mucous membranes moist Neck exam: Present: normal inspection. Absent: tenderness, meningismus, lymphadenopathy Respiratory exam: Present: normal lung sounds bilaterally. Absent: respiratory distress, wheezes, rales, rhonchi, stridor Cardiovascular Exam: Present: regular rate, normal rhythm, normal heart sounds. Absent: systolic murmur, diastolic murmur, rubs, gallop, clicks GI/Abdominal exam: Present: soft, normal bowel sounds. Absent: distended, tenderness, guarding, rebound, rigid Extremities exam: Present: normal inspection, full ROM, normal capillary refill. Absent: tenderness, pedal edema, joint swelling, calf tenderness Back exam: Present: normal inspection Neurological exam: Present: alert, oriented X3, CN II-XII intact Psychiatric exam: Present: normal affect, normal mood Skin exam: Present: warm, dry, intact, normal color. Absent: rash Course Vital Signs 01/22/22 01/22/22 01/23/22 22:20 23:22 01:12 Temperature 98.7 F 97.8 F Pulse Rate 97 70 52 L Respiratory 18 16 12 Rate Blood Pressure 130/71 117/72 109/75 O2 Sat by Pulse 100 98 94 L Oximetry 01/23/22 03:10 Temperature Pulse Rate 52 L Respiratory 12 Rate Blood Pressure 124/81 O2 Sat by Pulse 95 Oximetry - Reevaluation(s) Reevaluation #1: 01/22/22 23:15 Medical record is reviewed 01/23/22 06:11 Medical clear for psychiatric evaluation Medical Decision Making - Medical Decision Making 27 female DF for evaluation. Patient brought in for psychiatric evaluation and treatment possible drug overdose. Patient be admitted for psychiatric ev aluation and treatment - Lab Data Result diagrams: 01/22/22 23:22 01/22/22 23:22 Lab Results 01/22/22 01/22/22 Range/Units 23:22 23:22 WBC 6.3 (3.8-10.6) k/uL RBC 4.58 (3.80-5.40) m/uL Hgb 13.5 (11.4-16.0) gm/dL Hct 40.3 (34.0-46.0) % MCV 88.0 (80.0-100.0) fL MCH 29.4 (25.0-35.0) pg MCHC 33.4 (31.0-37.0) g/dL RDW 14.8 (11.5-15.5) % Plt Count 326 (150-450) k/uL MPV 7.3 Neutrophils % 72 % Lymphocytes % 20 % Monocytes % 4 % Eosinophils % 1 % Basophils % 0 % Neutrophils # 4.6 (1.3-7.7) k/uL Lymphocytes # 1.3 (1.0-4.8) k/uL Monocytes # 0.3 (0-1.0) k/uL Eosinophils # 0.1 (0-0.7) k/uL Basophils # 0.0 (0-0.2) k/uL Sodium 144 (137-145) mmol/L Potassium 3.0 L (3.5-5.1) mmol/L Chloride 107 (98-107) mmol/L Carbon Dioxide 21 L (22-30) mmol/L Anion Gap 16 mmol/L BUN 17 (7-17) mg/dL Creatinine 0.67 (0.52-1.04) mg/dL Est GFR (CKD-EPI)AfAm >90 (>60 ml/min/1.73 sqM) Est GFR (CKD-EPI)NonAf >90 (>60 ml/min/1.73 sqM) Glucose 115 H (74-99) mg/dL Calcium 9.7 (8.4-10.2) mg/dL Total Bilirubin 1.0 (0.2-1.3) mg/dL AST 39 H (14-36) U/L ALT 28 (4-34) U/L Alkaline Phosphatase 71 (38-126) U/L Total Protein 8.1 (6.3-8.2) g/dL Albumin 4.9 (3.5-5.0) g/dL Lipase 27 (23-300) U/L Salicylates <1.0 mg/dL Acetaminophen <10.0 ug/mL Serum Alcohol <10 mg/dL - EKG Data -: EKG Interpreted by Me (EKG is sinus 64 SD 126 QRS 90 QTC 442) Disposition Clinical Impression: Depression, Suicidal ideation Disposition: TRANSFER TO PSYCH HOSP/UNIT Condition: Fair Is patient prescribed a controlled substance at d/c from ED?: No Referrals: Eugene Romero MD [Primary Care Provider] - 1-2 days
[2022-01-22 23:39] LABS: Basophils % (A) 0 %; Eosinophils # (A) 0.1 k/uL (0-0.7); Eosinophils % (A) 1 %; HCT 40.3 % (34.0-46.0); HGB 13.5 gm/dL (11.4-16.0); Lymphocytes # (A) 1.3 k/uL (1.0-4.8); Lymphocytes % (A) 20 %; MCH 29.4 pg (25.0-35.0); MCHC 33.4 g/dL (31.0-37.0); Mean Platelet Volume 7.3; Monocytes # (A) 0.3 k/uL (0-1.0); Monocytes % (A) 4 %; Neutrophils # (A) 4.6 k/uL (1.3-7.7); Neutrophils % (A) 72 %; Platelet Count 326 k/uL (150-450); RBC 4.58 m/uL (3.80-5.40); RDW 14.8 % (11.5-15.5); WBC 6.3 k/uL (3.8-10.6)
[2022-01-22 23:56] LABS: ALT 28 U/L (4-34); AST 39 U/L (14-36); Acetaminophen <10.0 ug/mL; African American GFR (CKD) >90 (>60 ml/min/1.73 sqM); Albumin 4.9 g/dL (3.5-5.0); Alcohol <10 mg/dL; Alkaline Phosphatase 71 U/L (38-126); Anion Gap 16 mmol/L; Blood Urea Nitrogen 17 mg/dL (7-17); Calcium 9.7 mg/dL (8.4-10.2); Carbon Dioxide 21 mmol/L (22-30); Chloride 107 mmol/L (98-107); Glucose 115 mg/dL (74-99); Lipase 27 U/L (23-300); Non-African American GFR(CKD) >90 (>60 ml/min/1.73 sqM); Salicylate <1.0 mg/dL; Sodium 144 mmol/L (137-145); Total Protein 8.1 g/dL (6.3-8.2)
[2022-01-23] MEDS ORDERED: POTASSIUM CHLORIDE ER 20 MEQ TAB.ER PO STA ×2 (00:16)
[2022-01-23] MEDS ORDERED: MAGNESIUM SULFATE-D5W PMX 1 GM in DEXTROSE/WATER 1 100ML.BAG IVPB ONE (00:16)
[2022-01-23] MEDS ORDERED: SODIUM CHLORIDE 0.9% 1,000 ML IV STA (00:17)
[2022-01-23] MEDS ORDERED: MAGNESIUM HYDROXIDE 2,400 MG/10 ML CUP PO PRN (07:23)
[2022-01-23] MEDS ORDERED: MAG HYDROX/AL HYDROX/SIMETH 30 ML CUP PO PRN (07:23)
[2022-01-23] MEDS ORDERED: ALBUTEROL HFA INHALER INHALATION PRN (07:27)
[2022-01-23] MEDS ORDERED: hydrOXYzine HCL 50 MG/ML 1 ML VIAL IM PRN (07:28)
[2022-01-23] MEDS ORDERED: OLANZapine 5 MG TAB PO PRN (07:29)
[2022-01-23] MEDS ORDERED: OLANZapine 10 MG VIAL IM PRN (07:29)
[2022-01-23] MEDS: levETIRAcetam 500 MG TAB PO SCH (08:29)
[2022-01-23] MEDS: FLUoxetine HCL 20 MG CAP PO SCH (08:29)
[2022-01-23] MEDS: NICOTINE 14MG/24HR PATCH TRANSDERM SCH (08:29)
[2022-01-23] MEDS: hydrOXYzine pamoate 25 MG CAP PO PRN ×2 (08:31→17:03)
[2022-01-23] MEDS: ACETAMINOPHEN TAB 325 MG TAB PO PRN ×2 (08:32→17:08)
--- NOTE | 2022-01-23 12:15 | P.HP ---
Psychiatric H&P - . H&P Date: 01/23/22 History & Physical: Allergies Allergy/AdvReac Type Severity Reaction Status Date / Time Penicillins Allergy Rash/Hives Verified 01/23/22 06:50 sulfamethoxazole Allergy Rash/Hives Verified 01/23/22 06:50 [From Bactrim] trimethoprim [From Bactrim] Allergy Rash/Hives Verified 01/23/22 06:50 erythromycin base AdvReac Nausea & Verified 01/23/22 06:50 Vomiting Vital Signs Temp 97.6 F 01/23/22 08:20 Pulse 69 01/23/22 08:20 Resp 16 01/23/22 08:20 BP 122/77 01/23/22 08:20 Pulse Ox 99 01/23/22 08:20 FiO2 Intake & Output 01/22/22 01/23/22 01/23/22 18:59 06:59 18:59 Weight 54.431 kg 54.885 kg Laboratory Last Values WBC 6.3 k/uL (3.8-10.6) 01/22/22 23: RBC 4.58 m/uL (3.80-5.40) 01/22/22 23:22 Hgb 13.5 gm/dL (11.4-16.0) 01/22/22 23: Hct 40.3 % (34.0-46.0) 01/22/22 23: MCV 88.0 fL (80.0-100.0) 01/22/22 23:22 MCH 29.4 pg (25.0-35.0) 01/22/22 23: MCHC 33.4 g/dL (31.0-37.0) 01/22/22 23: RDW 14.8 % (11.5-15.5) 01/22/22 23:22 Plt Count 326 k/uL (150-450) 01/22/22 23:22 MPV 7.3 01/22/22 23: Neutrophils % 72 % 01/22/22 23:22 Lymphocytes % 20 % 01/22/22 23:22 Monocytes % 4 % 01/22/22 23:22 Eosinophils % 1 % 01/22/22 23: Basophils % 0 % 01/22/22 23:22 Neutrophils # 4.6 k/uL (1.3-7.7) 01/22/22 23:22 Lymphocytes # 1.3 k/uL (1.0-4.8) 01/22/22 23:22 Monocytes # 0.3 k/uL (0-1.0) 01/22/22 23:22 Eosinophils # 0.1 k/uL (0-0.7) 01/22/22 23:22 Basophils # 0.0 k/uL (0-0.2) 01/22/22 23:22 Sodium 144 mmol/L (137-145) 01/22/22 23:22 Potassium 3.0 mmol/L (3.5-5.1) L 01/22/22 23:22 Chloride 107 mmol/L (98-107) 01/22/22 23:22 Carbon Dioxide 21 mmol/L (22-30) L 01/22/22 23:22 Anion Gap 16 mmol/L 01/22/22 23:22 BUN 17 mg/dL (7-17) 01/22/22 23:22 Creatinine 0.67 mg/dL (0.52-1.04) 01/22/22 23:22 Est GFR (CKD-EPI)AfAm >90 (>60 ml/min/1.73 sqM) 01/22/22 23:22 Est GFR (CKD-EPI)NonAf >90 (>60 ml/min/1.73 sqM) 01/22/22 23:22 Glucose 115 mg/dL (74-99) H 01/22/22 23:22 Calcium 9.7 mg/dL (8.4-10.2) 01/22/22 23: Magnesium 2.1 mg/dL (1.6-2.3) 01/23/22 01:08 Total Bilirubin 1.0 mg/dL (0.2-1.3) 01/22/22 23:22 AST 39 U/L (14-36) H 01/22/22 23:22 ALT 28 U/L (4-34) 01/22/22 23:22 Alkaline Phosphatase 71 U/L (38-126) 01/22/22 23:22 Total Protein 8.1 g/dL (6.3-8.2) 01/22/22 23:22 Albumin 4.9 g/dL (3.5-5.0) 01/22/22 23:22 Lipase 27 U/L (23-300) 01/22/22 23:22 Salicylates <1.0 mg/dL 01/22/22 23:22 Acetaminophen <10.0 ug/mL 01/22/22 23:22 Serum Alcohol <10 mg/dL 01/22/22 23:22 Coronavirus (PCR) Not Detected (Not Detectd) 01/23/22 06:11 01/23/22 12:15 IDENTIFYING DATA: Patient is a single, unemployed, 27-year-old female with significant history of polysubstance abuse, seizure disorder, and asthma who presented to the hospital for depression and psychosis. HPI: Patient presented to the hospital on 01/23/2022 brought into the hospital voluntarily for depression and psychosis. The patient reports that she recently overdosed on fentanyl accidentally approximately 2 weeks ago. She reports that she had to be resuscitated and received multiple rounds of Narcan. She reports that since then, she has been experiencing bizarre psychiatric symptoms. She does report that she has been more disorganized and having the most random conversations with people were not present. She also reports that she has been feeling "like I don't trust myself and that I am out of my body." She reports auditory hallucinations. She states that there are some visual hallucinations however is unable to clarify this. In regards to auditory hallucinations, the patient reports that she hears multiple voices say random things to her. Prior to 2 weeks ago, she does not have any of the symptoms. In regards to mood, the patient does endorse some depressive symptoms however it should be to this to her worsening psychotic symptoms. She does report low energy, elevated anxiety, and desire to isolate. Further attempts to elicit psychiatric history was met with futility as the patient is quite somnolent dur ing the interview. The patient signed herself voluntarily to the psychiatric unit. PAST PSYCHIATRIC HISTORY: Patient states that she has a history of depression and anxiety. It is noted that the patient has a history of polysubstance abuse including methamphetamines, opiates, benzodiazepines, and heroin. The patient's home psychiatric medications include Wellbutrin, Seroquel, Remeron, Xanax, Ca tapres, and Keppra for seizures. Had a psychiatric hospitalization at [facility] earlier this month. Zolpidem with [facility] with the last appointment being on 12/05/2021. Patient denies any history of suicide attempts in the past. PMH: Seizure disorder, asthma. She reports that her last seizure was approximately 6 months ago likely related to substance withdrawal ALLERGIES: Penicillins, sulfamethoxazole, trimethoprim, erythromycin CHEMICAL DEPENDENCY HISTORY: The patient admits to polysubstance use including amphetamines, opiates, benzodiazepine's, heroin. She reported that she last used methamphetamines and heroin 2 days ago. She reports that she last used fentanyl approximately 2 weeks ago. FAMILY PSYCHIATRIC/SUBSTANCE USE HISTORY: Unable to to assess SOCIAL HISTORY: Patient is reportedly homeless. Unable to assess any further social history. MENTAL STATUS EXAM: General Appearance: Patient appears to be stated age is somnolent, disheveled, has multiple tattoos and is of a thin and frail build. Behavior: Patient is seated without any agitated behavior, however begins to nod off during the psychiatric evaluation. Speech: Patient's speech is nonspontaneous. Monotone. Low in volume. Mood/Affect: Patient reports their mood is very tired, affect is congruent and somnolent. Suicidality/Homicidality: Patient is denying any suicidal or homicidal ideation. Perceptions: Patient endorses both auditory and visual hallucinations. Though content/process: The patient has some dissociative symptoms and appears to be grossly disorganized. Memory and concentration: Poor Judgment and insight: Poor STRENGTHS/WEAKNESSES: Patient's strengths include a supportive family. Weakness includes polysubstance abuse. INTELLECT: average IMPRESSIONS: Brief psychotic episode - likely precipitated by polysubstance abuse Methamphetamine use disorder Opiate use disorder Cannabis use disorder Seizure disorder PLAN: -Patient is admitted under voluntary status to MHU for stabilization of psychiatric symptoms and safety. Patient signed adult voluntary form and medication consent and is placed in patient's chart. -Medications : We will start the patient on Zyprexa 5 mg by mouth at bedtime for mood stabilization/psychosis Discontinue Wellbutrin as this may lower seizure threshold Start Prozac 20 mg by mouth daily for anxiety -Zyprexa and Vistaril PRN for agitation/aggression -Patient was counselled on substance abuse is pre-contemplative -Patient was informed of the risks, benefits and side effects of the medication and patient verbally consented to taking the medications. -Internal Medicine consult to perform medical evaluation and physical. -NRT - nicotine patch -SW on board for discharge planning. Encourage patient to participate in groups to work on coping skills.
[2022-01-23] MEDS ORDERED: levETIRAcetam 500 MG TAB PO PRN (16:30)
[2022-01-23] MEDS ORDERED: ONDANSETRON ODT 4 MG TAB PO PRN (16:30)
[2022-01-23] MEDS ORDERED: PATIENT'S OWN (Buprenorphine Hcl/Naloxone Hcl [Suboxone 8 Mg-2 Mg Sl Film] 1 EACH Fil SUBLINGUAL SCH (16:30)
[2022-01-23] MEDS ORDERED: QUEtiapine 100 MG TAB PO SCH (21:00)
[2022-01-23] MEDS ORDERED: clonazePAM 0.5 MG TAB PO SCH (21:00)
[2022-01-24] MEDS: BUPRENORPHINE-NALOX 8-2 MG TAB 1 EACH TAB.SUBL SL SCH ×4 (00:25→21:32)
[2022-01-24] MEDS: levETIRAcetam 500 MG TAB PO SCH ×3 (00:25→20:45)
[2022-01-24] MEDS: cloNIDine HCL 0.1 MG TAB PO SCH ×4 (00:25→23:00)
[2022-01-24] MEDS: TOPIRAMATE 100 MG TAB PO SCH ×3 (00:25→20:46)
[2022-01-24] MEDS: OLANZapine 10 MG TAB PO SCH ×2 (00:25→20:46)
[2022-01-24] MEDS: NICOTINE 14MG/24HR PATCH TRANSDERM SCH (08:36)
[2022-01-24] MEDS: PANTOPRAZOLE 40 MG TABLET PO SCH (08:37)
[2022-01-24] MEDS: FLUoxetine HCL 20 MG CAP PO SCH (08:37)
[2022-01-24] MEDS ORDERED: FLUoxetine HCL 20 MG CAP PO SCH (09:00)
--- NOTE | 2022-01-24 11:41 | P.PN ---
Progress Note - Text Progress Note Date: 01/24/22 Interval History: Patient was seen resting in bed and was agreeable to speak with principal technical writer in her room. Currently, the patient continues to endorse significant paranoia and concerns that people are after her. She also reports auditory and visual hallucinations and feeling like she is not in line with reality. She endorses suicidal ideation however denies any homicidal ideation. The patient remains primarily isolative to herself in her room and states that she just "constantly feels tired." Mental Status Exam: General Appearance: Patient appears to be her stated age however is quite somnolent and difficult to direct. She is intermittently cooperative. Behavior: Patient is somnolent throughout the interview. Poor eye contact. Speech: Patient's speech is minimal and soft in volume. Mood/Affect: Mood is "just very tired." Affect is somnolent Suicidality/Homicidality: Patient endorses suicidal ideation however denies any homicidal ideation. Perceptions: Patient endorses both auditory and visual hallucinations. Though content/process: Patient is vague however doesn't endorse some paranoid delusions. Memory and concentration: AOX3, grossly intact for the purposes of this session Judgment and insight: Poor Vital Signs Temp 97.8 F 01/24/22 08:41 Pulse 60 01/24/22 08:41 Resp 16 01/24/22 08:41 BP 113/68 01/24/22 08:41 Pulse Ox 100 01/24/22 08:41 FiO2 Intake & Output 01/23/22 01/24/22 01/24/22 18:59 06:59 18:59 Weight 54.885 kg Assessment Brief psychotic episode - likely precipitated by polysubstance abuse Methamphetamine use disorder Opiate use disorder Cannabis use disorder Seizure disorder Plan: -Patient continues to meet criteria for inpatient psychiatric admission for symptom stabilization and safety. Patient has signed adult voluntary form and medication consent and was placed in patient's chart. -Medications: Discontinue Seroquel Patient's primary care provider started the patient on Topamax and Suboxone. We will likely taper Suboxone as this may be contributing to the patient's psychotic symptoms. Patient also has a significant history of polysubstance abuse and is not good candidate for her prescribed regimen of suboxone and benzodiazepines. Continue Prozac 20 mg by mouth daily for depression/anxiety Continue Zyprexa 10 mg by mouth at bedtime for psychosis -When necessary Zyprexa and Vistaril -NRT - nicotine patch -SW on board for discharge planning. Encouraged the patient to participate in milieu.
[2022-01-24 15:30] LABS: HDL Cholesterol 78.8 mg/dL (40.00-60.00); Triglycerides 47.4 mg/dL (0.00-149.00)
[2022-01-24 15:47] LABS: Chol/HDL Ratio 3.2 Ratio
[2022-01-24] MEDS: hydrOXYzine pamoate 25 MG CAP PO PRN (20:51)
[2022-01-25] MEDS: BUPRENORPHINE-NALOX 8-2 MG TAB 1 EACH TAB.SUBL SL SCH ×3 (09:45→21:40)
[2022-01-25] MEDS: NICOTINE 14MG/24HR PATCH TRANSDERM SCH (09:47)
[2022-01-25] MEDS: levETIRAcetam 500 MG TAB PO SCH ×2 (09:47→20:16)
[2022-01-25] MEDS: FLUoxetine HCL 20 MG CAP PO SCH (09:47)
[2022-01-25] MEDS: PANTOPRAZOLE 40 MG TABLET PO SCH (09:47)
[2022-01-25] MEDS: TOPIRAMATE 100 MG TAB PO SCH ×2 (09:48→20:16)
[2022-01-25] MEDS: cloNIDine HCL 0.1 MG TAB PO SCH ×2 (09:50→20:16)
--- NOTE | 2022-01-25 11:32 | P.PN ---
Progress Note - Text Progress Note Date: 01/25/22 Interval History: Patient was seen resting in bed and was agreeable to speak with telegraphic typewriter repairer in her room. The patient is not reporting any suicidal or homicidal ideation, intention, and/or plan. She is not reporting any visual hallucinations however endorse auditory hallucinations. She is vague about what she is experiencing. The patient states that she is not on her right medications. She expresses a desire to be back on benzodiazepine medications. She was informed that this is not the case and that her medication regimen has been detrimental to her overall mental health as she has been chronically prescribed opiates and benzodiazepines as well as engaging in polysubstance abuse in the outpatient setting. Patient appears to be pre-contemplative in regards to her substance use. She reports that she needs her medications "to be correct" however is unable to verbalize wh at her normal mental health baseline is. Mental Status Exam: General Appearance: Patient appears to be her stated age however is quite somnolent and difficult to direct. She is intermittently cooperative. Behavior: Patient has poor eye contact. Speech: Patient's speech is minimal and soft in volume. Mood/Affect: Mood is "not good." Affect is irritable. Suicidality/Homicidality: Patient denies any suicidal or homicidal ideation. Perceptions: Patient endorses both auditory and visual hallucinations. Though content/process: Strong fixation on medication management. Particularly a desire for controlled substances. Memory and concentration: AOX3, grossly intact for the purposes of this session Judgment and insight: Very poor. Vital Signs Temp 97.4 F L 01/25/22 07:13 Pulse 56 L 01/25/22 09:50 Resp 16 01/25/22 09:50 BP 99/54 01/25/22 09:50 Pulse Ox 100 01/24/22 08:41 FiO2 Laboratory Results - Last 24 Hours 01/22/22 23:22 Triglycerides 47.40 Cholesterol 252.00 H LDL Cholesterol Direct 145.00 H LDL Cholesterol, Calc VLDL Cholesterol, Calc HDL Cholesterol 78.80 H Cholesterol/HDL Ratio 3.20 TSH 0.265 L Assessment Brief psychotic episode - likely precipitated by polysubstance abuse Methamphetamine use disorder Opiate use disorder Cannabis use disorder Seizure disorder Plan: -Patient continues to meet criteria for inpatient psychiatric admission for symptom stabilization and safety. Patient has signed adult voluntary form and medication consent and was placed in patient's chart. -Medications: Patient's primary care provider started the patient on Topamax and Suboxone. Consider taper of Suboxone as this may be contributing to the patient's psychotic symptoms. Patient also has a significant history of polysubstance abuse and is not good candidate for her prescribed regimen of suboxone and benzodiazepines. Continue Prozac 20 mg by mouth daily for depression/anxiety Continue Zyprexa 10 mg by mouth at bedtime for psychosis -When necessary Zyprexa and Vistaril -NRT - nicotine patch -SW on board for discharge planning. Encouraged the patient to participate in milieu.
[2022-01-25 17:28] LABS: Appearance,Urine Clear (Clear); Bilirubin,Urine Negative (Negative); Blood,Urine Negative (Negative); Color,Urine Colorless; Glucose,Urine (UA) Negative (Negative); Ketones,Urine Negative (Negative); Leukocyte Esterase,Urine Negative (Negative); Nitrite,Urine Negative (Negative); PH, Urine 5.5 (5.0-8.0); Protein,Urine Negative (Negative); Specific Gravity,Urine 1.008 (1.001-1.035); Urobilinogen,Urine <2.0 mg/dL (<2.0)
[2022-01-25] MEDS: OLANZapine 10 MG TAB PO SCH (20:16)
[2022-01-25] MEDS: hydrOXYzine pamoate 25 MG CAP PO PRN (22:18)
[2022-01-26] MEDS: BUPRENORPHINE-NALOX 8-2 MG TAB 1 EACH TAB.SUBL SL SCH ×3 (09:42→21:09)
[2022-01-26] MEDS: FLUoxetine HCL 20 MG CAP PO SCH (09:43)
[2022-01-26] MEDS: levETIRAcetam 500 MG TAB PO SCH ×2 (09:43→21:09)
[2022-01-26] MEDS: TOPIRAMATE 100 MG TAB PO SCH ×2 (09:43→21:09)
[2022-01-26] MEDS: PANTOPRAZOLE 40 MG TABLET PO SCH (09:43)
[2022-01-26] MEDS: NICOTINE 14MG/24HR PATCH TRANSDERM SCH (09:43)
[2022-01-26] MEDS: cloNIDine HCL 0.1 MG TAB PO SCH ×2 (13:04→21:09)
--- NOTE | 2022-01-26 15:14 | P.PN ---
Progress Note - Text Progress Note Date: 01/26/22 Clinical Problems: Brief psychotic disorder, methamphetamine use disorder severe, opiate use disorder severe, cannabis use disorder, seizure disorder, rule out benzodiazepine use disorder, recent overdose of opiates Interim history: I reviewed the medical record and interviewed the patient. Janessa mendoza complained of continued anxiety and difficulty sleeping. She alleged that on the medication currently prescribed by an affective in treating anxiety. She talked about having been prescribed Xanax since she was 12 years old. I reminded her of the conversation that she had with Dr. Phelan regarding prescription of benzodiazepines. She is also interested in "long-term treatment" and plans to call [facility] on Friday. We discussed treatment options and agreed to a trial of BuSpar and Seroquel at nighttime. She intermittently attends therapeutic groups and activities. She slept 9 hours last night. She has had no episodes of behavioral dyscontrol. Mental status exam: She presented as a somewhat disheveled appearing young female who had multiple tattoos. She made eye contact and appeared to attend to the interview. She had a distressed facial expression. She showed psychomotor retardation but no abnormal involuntary movements. Her speech was soft slow and quiet. Her affect was flat. She did not express suicidal ideation, wishes or homicidal ideation. She expressed feelings of hopelessness and helplessness regarding his living situation. She ruminated abo ut her anxiety. She did not express ideas reference, paranoid ideation or delusions. Her thinking was concrete but her associations were coherent, logical and goal directed. She denied hallucinations and did not appear to responding to internal stimuli. Assessment: The [place] psychotic episode appears to have resolved she may now be experiencing withdrawal symptoms. Plan: Continue inpatient treatment. Safety precautions. Begin BuSpar 10 mg by mouth twice a day and Seroquel 25 mg prn at bedtime. Continue her other psychotropic medications-Prozac 20 mg daily and olanzapine 10 mg at bedtime. Topamax 20 mg twice a day for seizure disorder, Habitrol for smoking cessation, Suboxone 8-2 mg 3 times a day for opiate dependence. Encourage participation in therapeutic groups and activities. Evaluate clinical status response to treatment daily basis.
[2022-01-26] MEDS: ACETAMINOPHEN TAB 325 MG TAB PO PRN (20:04)
[2022-01-26] MEDS ORDERED: QUEtiapine 25 MG TAB PO SCH (21:00)
[2022-01-26] MEDS: busPIRone HCl 10 MG TAB PO SCH (21:09)
[2022-01-26] MEDS: OLANZapine 10 MG TAB PO SCH (21:09)
[2022-01-26] MEDS: QUEtiapine 25 MG TAB PO PRN (21:10)
[2022-01-27] MEDS: TOPIRAMATE 100 MG TAB PO SCH ×2 (09:21→20:49)
[2022-01-27] MEDS: BUPRENORPHINE-NALOX 8-2 MG TAB 1 EACH TAB.SUBL SL SCH ×3 (09:21→21:02)
[2022-01-27] MEDS: NICOTINE 14MG/24HR PATCH TRANSDERM SCH (09:21)
[2022-01-27] MEDS: cloNIDine HCL 0.1 MG TAB PO SCH ×2 (09:21→20:49)
[2022-01-27] MEDS: busPIRone HCl 10 MG TAB PO SCH ×2 (09:22→20:49)
[2022-01-27] MEDS: PANTOPRAZOLE 40 MG TABLET PO SCH (09:22)
[2022-01-27] MEDS: FLUoxetine HCL 20 MG CAP PO SCH (09:22)
[2022-01-27] MEDS: levETIRAcetam 500 MG TAB PO SCH ×2 (09:22→20:49)
--- NOTE | 2022-01-27 12:25 | P.PN ---
Progress Note - Text Progress Note Date: 01/27/22 Clinical Problems: Brief psychotic disorder, methamphetamine use disorder severe, opiate use disorder severe, cannabis use disorder, seizure disorder, rule out benzodiazepine use disorder, recent overdose of opiates Interim history: I reviewed the medical record and interviewed the patient. Janessa mendoza complained of fatigue and tiredness. As result, she is unable to attend therapeutic groups and activities. She slept 7 hours last night. She has had no episodes of behavioral dyscontrol. Mental status exam: She presented as a somewhat disheveled appearing young female who had multiple tattoos. She made eye contact and appeared to attend to the interview. She had a distressed facial expression. She showed psychomotor retardation but no abnormal involuntary movements. Her speech was soft slow and quiet. Her affect was flat. She did not express suicidal ideation, wishes or homicidal ideation. She expressed feelings of hopelessness and helplessness regarding his living situation. She ruminated about her anxiety. She did not express ideas reference, paranoid ideation or delusions. Her thinking was concrete but her associations were coherent, logical and goal directed. She denied hallucinations and did not appear to responding to internal stimuli. Assessment: Amphetamine withdrawal with fatigue and listlessness Plan: Continue inpatient treatment. Safety precautions. Continue . Continue her other psychotropic medications-BuSpar 10 mg by mouth twice a day, Seroquel 25 mg prn at bedtime, Prozac 20 mg daily and olanzapine 10 mg at bedtime. Topamax 20 mg twice a day for seizure disorder, Habitrol for smoking cessation, Suboxone 8-2 mg 3 times a day for opiate dependence. Encourage participation in therapeutic groups and activities. Evaluate clinical status response to treatment daily basis.
[2022-01-27] MEDS: hydrOXYzine pamoate 25 MG CAP PO PRN ×2 (14:01→21:04)
[2022-01-27] MEDS: ACETAMINOPHEN TAB 325 MG TAB PO PRN ×2 (17:58→21:03)
[2022-01-27] MEDS: OLANZapine 10 MG TAB PO SCH (20:49)
[2022-01-27] MEDS: QUEtiapine 25 MG TAB PO PRN (20:51)
[2022-01-28] MEDS: levETIRAcetam 500 MG TAB PO SCH ×2 (08:39→20:39)
[2022-01-28] MEDS: busPIRone HCl 10 MG TAB PO SCH ×2 (08:39→20:40)
[2022-01-28] MEDS: FLUoxetine HCL 20 MG CAP PO SCH (08:39)
[2022-01-28] MEDS: TOPIRAMATE 100 MG TAB PO SCH ×2 (08:39→20:39)
[2022-01-28] MEDS: PANTOPRAZOLE 40 MG TABLET PO SCH (08:40)
[2022-01-28] MEDS: NICOTINE 14MG/24HR PATCH TRANSDERM SCH (08:40)
[2022-01-28] MEDS: cloNIDine HCL 0.1 MG TAB PO SCH ×2 (08:40→20:39)
[2022-01-28] MEDS: hydrOXYzine pamoate 25 MG CAP PO PRN ×2 (08:42→21:43)
[2022-01-28 08:45] VITALS: RESP 16
[2022-01-28] MEDS: BUPRENORPHINE-NALOX 8-2 MG TAB 1 EACH TAB.SUBL SL SCH ×3 (08:46→20:40)
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
--- NOTE | 2022-01-28 10:12 | CONS ---
CONSULTATION CONTINUATION: She came into the emergency room with depression and apparently expressive suicidal thoughts. REVIEW OF SYSTEMS: She denies any headaches, change in vision or hearing, chest pain, abdominal pain, nausea, vomiting, urinary complaints, etc. Past medical history, family history, personal and social histories reveal that she is allergic to codeine, erythromycin, penicillin, and sulfa. When she was last seen on the 05 of January, she was on: 1. Buprenorphine 8/2 three times a day. 2. Omeprazole 20 mg once a day. 3. Sumatriptan 100 mg p.r.n. for migraines. 4. Clonidine 0.1 twice a day. 5. Fluoxetine 20 mg once a day. 6. Levetiracetam 500 mg once a day. 7. Topiramate 100 mg twice a day. 8. Advair. 9. Mirtazapine 15 mg at bedtime. 10.Quetiapine 100 mg at night. 11.Xanax 2 mg once a day p.r.n. 12.Ibuprofen. 13.She was prescribed Narcan. Remainder of her history is unremarkable. PHYSICAL EXAMINATION: VITAL SIGNS: Blood pressure 108/60, pulse 85, respirations 16. She is afebrile. GENERAL: She appeared to be well developed, well nourished, no acute distress. SKIN: Color is normal. Skin is warm and dry. LYMPH NODES: Not enlarged. HEAD, EARS, EYES, NOSE, MOUTH, AND THROAT: Normal. CHEST: Clear. CARDIAC: Normal. ABDOMEN: Soft, nontender. EXTREMITIES: Normal. NEUROLOGICAL: She is intact. IMPRESSION: 1. Major depression. 2. Suicidal personality. 3. Long history of narcotic abuse and addiction. RECOMMENDATIONS: None. I will restart her Suboxone. MMODL / IJN: [id number] /
--- NOTE | 2022-01-28 11:26 | P.PN ---
Progress Note - Text Progress Note Date: 01/28/22 Interval History: Patient was seen resting in bed and was agreeable to speak with machine sign writer in the office. Currently, the patient is not reporting any suicidal or homicidal ideation, intention,/or plan. She is not reporting any auditory or visual hallucinations. She is denying any paranoia or other delusions. Patient does express elevated anxiety. She does wish to go to rehab upon discharge. The patient has been using substances for quite some time and engages in heavy methamphetamine, opiate, and has been, and cannabis use. She has been adherent with the medications and is not reporting any significant side effects at this time per Mental Status Exam: General Appearance: Patient appears to be her stated age, is alert, oriented, and cooperative during the interview. Fair hygiene and grooming. Behavior: Patient has much improved eye contact. She is seated without any agitated behavior. Speech: Patient's speech is spontaneous, with normal rate, tone, and slightly low in volume. Mood/Affect: Mood is "my mind is not right." Affect appears to be constricted. Suicidality/Homicidality: Patient denies any suicidal or homicidal ideation. Perceptions: Patient endorses both auditory and visual hallucinations. Though content/process: The patient continues to have thoughts directed at her medications and medication management. Memory and concentration: AOX3, grossly intact for the purposes of this session Judgment and insight: Mildly improving. Vital Signs Temp 97.4 F L 01/28/22 06:45 Pulse 57 L 01/28/22 08:43 Resp 16 01/28/22 08:43 BP 110/56 01/28/22 08:43 Pulse Ox 100 01/24/22 08:41 FiO2 Assessment Brief psychotic episode - likely precipitated by polysubstance abuse Methamphetamine use disorder Opiate use disorder Cannabis use disorder Seizure disorder Plan: -Patient continues to meet criteria for inpatient psychiatric admission for symptom stabilization and safety. Patient has signed adult voluntary form and medication consent and was placed in patient's chart. -Medications: Patient's primary care provider is continuing patient on Topamax and Suboxone. Increase Prozac to 30 mg by mouth daily for depression/anxiety Continue Zyprexa 10 mg by mouth at bedtime for psychosis BuSpar 10 mg by mouth twice a day for anxiety Seroquel 25 mg when necessary at bedtime for insomnia -When necessary Zyprexa and Vistaril -NRT - nicotine patch -SW on board for discharge planning. Encouraged the patient to participate in milieu.
[2022-01-28] MEDS: OLANZapine 10 MG TAB PO SCH (20:39)
[2022-01-28] MEDS: QUEtiapine 25 MG TAB PO PRN (20:42)
[2022-01-29] MEDS: BUPRENORPHINE-NALOX 8-2 MG TAB 1 EACH TAB.SUBL SL SCH ×3 (09:23→21:04)
[2022-01-29] MEDS: busPIRone HCl 10 MG TAB PO SCH ×3 (09:34→21:04)
[2022-01-29] MEDS: levETIRAcetam 500 MG TAB PO SCH ×2 (09:34→21:04)
[2022-01-29] MEDS: TOPIRAMATE 100 MG TAB PO SCH ×2 (09:34→21:04)
[2022-01-29] MEDS: cloNIDine HCL 0.1 MG TAB PO SCH ×2 (09:34→21:03)
[2022-01-29] MEDS: PANTOPRAZOLE 40 MG TABLET PO SCH (09:34)
[2022-01-29] MEDS: FLUoxetine HCL 10 MG CAP PO SCH (09:35)
[2022-01-29] MEDS: NICOTINE 14MG/24HR PATCH TRANSDERM SCH (09:35)
[2022-01-29] MEDS: hydrOXYzine pamoate 25 MG CAP PO PRN ×3 (09:39→22:48)
[2022-01-29] MEDS ORDERED: QUEtiapine 100 MG TAB PO PRN (09:42)
--- NOTE | 2022-01-29 13:41 | P.PN ---
Progress Note - Text Progress Note Date: 01/29/22 Interval History: Patient was seen resting in bed and was agreeable to speak with fiction and nonfiction prose writer in the office. Currently, the patient is not reporting any suicidal or homicidal ideation. She is not reporting any auditory or visual hallucinations. She denies any paranoia or delusions. Patient expresses that she would like to Seroquel to be increased as it does not help with insomnia. She is okay with transitioning from Zyprexa is too solely just Seroquel. She also does report elevated anxiety and like her BuSpar increased. She is otherwise not reporting any issues regarding her general medical health. She does express a desire to go to rehab and is scheduled for an intake with Maddie on Friday. Mental Status Exam: General Appearance: Patient appears to be her stated age, is alert, oriented, and cooperative during the interview. Fair hygiene and grooming. Behavior: Patient has much improved eye contact. She is seated without any agitated behavior. Speech: Patient's speech is spontaneous, with normal rate, tone, and slightly low in volume. Mood/Affect: Mood is "a little anxious." Affect appears to be constricted. Suicidality/Homicidality: Patient denies any suicidal or homicidal ideation. Perceptions: Patient endorses both auditory and visual hallucinations. Though content/process: The patient continues to have thoughts directed at her medications and medication management. Memory and concentration: AOX3, grossly intact for the purposes of this session Judgment and insight: Mildly improving. Vital Signs Temp 97.4 F L 01/28/22 06:45 Pulse 57 L 01/28/22 08:43 Resp 16 01/28/22 08:43 BP 110/56 01/28/22 08:43 Pulse Ox 100 01/24/22 08:41 FiO2 Assessment Brief psychotic episode - likely precipitated by polysubstance abuse Methamphetamine use disorder Opiate use disorder Cannabis use disorder Seizure disorder Plan: -Patient continues to meet criteria for inpatient psychiatric admission for symptom stabilization and safety. Patient has signed adult voluntary form and medication consent and was placed in patient's chart. -Medications: Patient's primary care provider is continuing patient on Topamax and Suboxone. Continue Prozac 30 mg by mouth daily for depression/anxiety Discontinue Zyprexa Increase BuSpar to 10 mg by mouth three times a day for anxiety Increase Seroquel to 100 mg when necessary at bedtime for insomnia -When necessary Zyprexa and Vistaril -NRT - nicotine patch -SW on board for discharge planning. Encouraged the patient to participate in milieu.
[2022-01-29] MEDS: ACETAMINOPHEN TAB 325 MG TAB PO PRN (22:49)
[2022-01-30] MEDS: NICOTINE 14MG/24HR PATCH TRANSDERM SCH ×2 (08:43→08:48)
[2022-01-30] MEDS: FLUoxetine HCL 10 MG CAP PO SCH (08:43)
[2022-01-30] MEDS: cloNIDine HCL 0.1 MG TAB PO SCH ×2 (08:43→21:13)
[2022-01-30] MEDS: PANTOPRAZOLE 40 MG TABLET PO SCH (08:43)
[2022-01-30] MEDS: busPIRone HCl 10 MG TAB PO SCH ×3 (08:43→21:13)
[2022-01-30] MEDS: TOPIRAMATE 100 MG TAB PO SCH ×2 (08:45→21:13)
[2022-01-30] MEDS: levETIRAcetam 500 MG TAB PO SCH ×2 (08:45→21:13)
[2022-01-30] MEDS: hydrOXYzine pamoate 25 MG CAP PO PRN ×3 (08:45→23:15)
[2022-01-30] MEDS: BUPRENORPHINE-NALOX 8-2 MG TAB 1 EACH TAB.SUBL SL SCH ×3 (09:58→23:16)
--- NOTE | 2022-01-30 11:23 | P.PN ---
Progress Note - Text Progress Note Date: 01/30/22 Interval History: Patient was seen resting in bed and was agreeable to speak with conventional underwriter in the office. Currently, the patient reports that she is feeling better. She states that she was able to sleep well last night and denies any issues regarding her appetite or her change in medication. She states that she has spoken with her family and is desiring to go home prior to going to discharge. She is not reporting any auditory or visual hallucinations. She is denying any paranoia or other delusions. She vehemently denies any suicidal or homicidal ideation, intention, and/or plan. She is agreeable to discharge tomorrow. Mental Status Exam: General Appearance: Patient appears to be her stated age, is alert, oriented, and cooperative during the interview. Fair hygiene and grooming. Behavior: Patient has much improved eye contact. She is seated without any agitated behavior. Speech: Patient's speech is spontaneous, with normal rate, tone, and slightly low in volume. Mood/Affect: Mood is "feeling better." Affect appears to be constricted. Suicidality/Homicidality: Patient denies any suicidal or homicidal ideation. Perceptions: Patient denies any auditory or visual hallucinations. Though content/process: Linear and logical in short conversation. Memory and concentration: AOX3, grossly intact for the purposes of this session Judgment and insight: Mildly improving. Vital Signs Temp 97.8 F 01/29/22 08:00 Pulse 100 01/29/22 08:00 Resp 16 01/29/22 08:00 BP 103/57 01/29/22 08:00 Pulse Ox 100 01/29/22 08:00 FiO2 Assessment Brief psychotic episode - likely precipitated by polysubstance abuse Methamphetamine use disorder Opiate use disorder Cannabis use disorder Seizure disorder Plan: -Patient continues to meet criteria for inpatient psychiatric admission for symptom stabilization and safety. Patient has signed adult voluntary form and medication consent and was placed in patient's chart. -Medications: Patient's primary care provider is continuing patient on Topamax and Suboxone. Continue Prozac 30 mg by mouth daily for depression/anxiety Continue BuSpar 10 mg by mouth three times a day for anxiety Increase Seroquel to 150 mg at bedtime for insomnia -When necessary Zyprexa and Vistaril -NRT - nicotine patch -SW on board for discharge planning. Encouraged the patient to participate in milieu.
[2022-01-30 12:34] VITALS: BP 99/59; PULSE 73; TEMP 98.9
[2022-01-30] MEDS: NICOTINE GUM (POLACRILEX) 2 MG GUM BUCCAL PRN ×2 (13:53→18:32)
[2022-01-30] MEDS ORDERED: QUEtiapine 100 MG TAB PO SCH (21:00)
[2022-01-30] MEDS: ACETAMINOPHEN TAB 325 MG TAB PO PRN (21:15)
[2022-01-31] MEDS: FLUoxetine HCL 10 MG CAP PO SCH (08:45)
[2022-01-31] MEDS: levETIRAcetam 500 MG TAB PO SCH (08:45)
[2022-01-31] MEDS: cloNIDine HCL 0.1 MG TAB PO SCH (08:45)
[2022-01-31] MEDS: PANTOPRAZOLE 40 MG TABLET PO SCH (08:45)
[2022-01-31] MEDS: busPIRone HCl 10 MG TAB PO SCH (08:45)
[2022-01-31] MEDS: TOPIRAMATE 100 MG TAB PO SCH (08:45)
[2022-01-31] MEDS: hydrOXYzine pamoate 25 MG CAP PO PRN (08:47)
[2022-01-31] MEDS: NICOTINE GUM (POLACRILEX) 2 MG GUM BUCCAL PRN (09:20)
[2022-01-31] MEDS: ACETAMINOPHEN TAB 325 MG TAB PO PRN (10:20)
[2022-01-31] MEDS: BUPRENORPHINE-NALOX 8-2 MG TAB 1 EACH TAB.SUBL SL SCH (10:20)
--- NOTE | 2022-01-31 14:26 | P.DS ---
Providers Date of admission: 01/23/22 07:20 Expected date of discharge: 01/31/22 Attending physician: Davian Phelan MD Consults: 01/23/22 07:23 Consult Physician Routine Consulting Provider: Eugene Romero Consult Reason/Comments: For H & P for Medical Follow Up Do you want consulting provider notified?: Yes Primary care physician: Eugene Romero - Discharge Diagnosis(es) (1) Brief psychotic disorder Status: Acute Priority: High (2) Methamphetamine use disorder, moderate, dependence Status: Chronic Priority: Medium (3) Heroin use disorder, moderate, dependence Status: Chronic Priority: Medium (4) Cannabis use disorder Status: Chronic Priority: Medium Hospital Course: Admission HPI: Patient is a single, unemployed, 27-year-old female with significant history of polysubstance abuse, seizure disorder, and asthma who presented to the hospital for depression and psychosis. Patient presented to the hospital on 01/23/2022 brought into the hospital voluntarily for depression and psychosis. The patient reports that she recently overdosed on fentanyl accidentally approximately 2 weeks ago. She reports that she had to be resuscitated and received multiple rounds of Narcan. She reports that since then, she has been experiencing bizarre psychiatric symptoms. She does report that she has been more disorganized and having the most random conversations with people were not present. She also reports that she has been feeling "like I don't trust myself and that I am out of my body." She reports auditory hallucinations. She states that there are some visual hallucinations however is unable to clarify this. In regards to auditory hallucinations, the patient reports that she hears multiple voices say random things to her. Prior to 2 weeks ago, she does not have any of the symptoms. In regards to mood, the patient does endorse some depressive symptoms however it should be to this to her worsening psychotic symptoms. She does report low energy, elevated anxiety, and desire to isolate. Further attempts to elicit psychiatric history was met with futility as the patient is quite somnolent during the interview. The patient signed herself voluntarily to the psychiatric unit. Patient states that she has a history of depression and anxiety. It is noted that the patient has a history of polysubstance abuse including methamphetamines, opiates, benzodiazepines, and heroin. The patient's home psychiatric medications include Wellbutrin, Seroquel, Remeron, Xanax, Catapres, and Keppra for seizures. Had a psychiatric hospitalization at [facility] earlier this month. Zolpidem with [facility] with the last appointment being on 0 12/05/2021. Patient denies any history of suicide attempts in the past. Hospital course: Upon admission to the unit patient was initially somnolent, irritable, and unwilling to engage in the psychiatric interview. Patient was initially started on Zyprexa to address her mood lability and irritability. Wellbutrin was discontinued as the patient has a significant history of seizure disorder and th is medication is contraindicated in patients with a previous history of seizures. Prozac was initiated instead to address anxiety. On this regimen, the patient displayed gradual improvement. She was later transition from Zyprexa to Seroquel as per her preference. The patient became more future and goal oriented and is with a significant improvement in regards her target symptoms of depression, psychosis, and irritability. The patient was scheduled to go to inpatient substance abuse rehabilitation on Friday however the patient desired to go home first in order to see her family prior to going to inpatient substance abuse rehabilitation. On the day of discharge, the patient is not reporting any suicidal or homicidal ideation, intention, and/or plan. She is denying any auditory or visual hallucinations. She reports no paranoia or other delusions. The patient denies any access to firearms or other weapons. She has been adherent with her medications and is not endorsing any significant side effects. The patient does have a significant history of substance abuse and is scheduled for an intake with [facility] on Friday. She was counseled at length on abstaining from all substances including alcohol, marijuana, tobacco, and methamphetamines. The patient was counseled at length on the importance of medication adherence and appropriate outpatient follow-up. Prior to discharge, family meeting will be arranged by social worker health services to answer any questions and ensure safety. Mental status exam: General Appearance: Patient appears to be stated age is alert, pleasant, and cooperative. Patient is in no acute distress and has fair hygiene and grooming Behavior: Patient is calmly seated without any agitated behavior. Speech: Patient's speech is fluent and nonpressured. Mood/Affect: Patient reports their mood is "much better", affect is congruent and euthymic to bright. Suicidality/Homicidality: Patient denies having any suicidal or homicidal ideation intent or plan. Perceptions: Patient denies any auditory or visual hallucinations. Though content/process: There is no evidence of any delusional thought content and thought process is linear and goal-directed. Patient is future and goal oriented. Memory and concentration: AOX3, grossly intact for the purposes of this session. Can spell "WORLD" backwards correctly. Judgment and insight: Improved with guarded prognosis Impression: Brief psychotic episode - likely precipitated by polysubstance abuse Methamphetamine use disorder Opiate use disorder Cannabis use disorder Seizure disorder Plan: -Continue with discharge today as patient has improved and stabilized psychiatrically and is not currently an imminent threat to herself and/or others. Patient will remain at chronically elevated risk for harm to self and/or others due to her impulsivity and polysubstance abuse. -Continue medications: Keppra 500 mg by mouth every 12 hours for seizure disorder Prozac 30 mg by mouth daily for depression/anxiety BuSpar 10 mg by mouth 3 times a day for anxiety Catapres 0.1 mg by mouth twice a day for substance use Seroquel 150 mg by mouth at bedtime for psychosis Topamax 100 mg by mouth twice a day and Suboxone were initiated by the patient's primary care physician. -Patient was counseled on the need for medication compliance and appropriate follow-up at mental health and also primary care for medical issues. Patient verbalized understanding and agreed. -Social work to arrange for and conduct family meeting to ensure safety upon discharge and answer any questions/concerns. Social work also to arrange for patients follow up appointments with [facility] for psychiatric care along with follow up with primary care provider. -Patient counseled on abstaining from recreational drugs and marijuana and alcohol. Was informed/educated on the adverse effects on their physical and mental health. Patient verbally agreed and understood. Patient will be going to [facility] on Friday. -Patient was instructed to return to the hospital or seek immediate medical care if their psychiatric or medical symptoms do worsen or reoccur. -Psychoeducation and supportive therapy provided to patient. Risks and benefits of pharmacological treatment versus the risks and benefits of nontreatment weight and discussed. Informed consent discussion held. Common side effects of psychotropics discussed such as, but not limited to headache, GI disturbance, sexual dysfunction, movement disorders, sedation, and orthostatic hypotension. Life threatening and blackbox warnings of prescribed medications also discussed. Potential risks of operating a vehicle or heavy machinery discussed with patient at length. Advised on importance of compliance and a reliable and responsible manner. Patient advised to review FDA consumer labeling of all medications prior to taking. Patient verbalized understanding of potential risks, and agrees with current treatment plan. Patient advised to medically contact physician/emergency personnel if any acute changes in condition occur. Vital Signs Temp 98.9 F 01/30/22 11:00 Pulse 73 01/30/22 11:00 Resp 16 01/30/22 11:00 BP 99/59 01/30/22 11:00 Pulse Ox 100 01/30/22 11:00 FiO2 Laboratory Results WBC 6.3 k/uL (3.8-10.6) 01/22/22: RBC 4.58 m/uL (3.80-5.40) 01/22/22 23: Hgb 13.5 gm/dL (11.4-16.0) 01/22/22: Hct 40.3 % (34.0-46.0) 01/22/22: MCV 88.0 fL (80.0-100.0) 01/22/22: MCH 29.4 pg (25.0-35.0) 01/22/22: MCHC 33.4 g/dL (31.0-37.0) 01/22/22 23: RDW 14.8 % (11.5-15.5) 01/22/22: Plt Count 326 k/uL (150-450) 01/22/22 23: MPV 7.3 01/22/22 23: Neutrophils % 72 % 01/22/22 23: Lymphocytes % 20 % 01/22/22 23: Monocytes % 4 % 01/22/22 23: Eosinophils % 1 % 01/22/22 23: Basophils % 0 % 01/22/22 23: Neutrophils # 4.6 k/uL (1.3-7.7) 01/22/22 23: Lymphocytes # 1.3 k/uL (1.0-4.8) 01/22/22 23: Monocytes # 0.3 k/uL (0-1.0) 01/22/22 23:22 Eosinophils # 0.1 k/uL (0-0.7) 01/22/22 23:22 Basophils # 0.0 k/uL (0-0.2) 01/22/22 23:22 Sodium 144 mmol/L (137-145) 01/22/22 23:22 Potassium 3.0 mmol/L (3.5-5.1) L 01/22/22 23:22 Chloride 107 mmol/L (98-107) 01/22/22 23:22 Carbon Dioxide 21 mmol/L (22-30) L 01/22/22 23:22 Anion Gap 16 mmol/L 01/22/22 23:22 BUN 17 mg/dL (7-17) 01/22/22 23:22 Creatinine 0.67 mg/dL (0.52-1.04) 01/22/22 23:22 Est GFR (CKD-EPI)AfAm >90 (>60 ml/min/1.73 sqM) 01/22/22 23:22 Est GFR (CKD-EPI)NonAf >90 (>60 ml/min/1.73 sqM) 01/22/22 23:22 Glucose 115 mg/dL (74-99) H 01/22/22 23:[address] Glu mg/dL 117 01/22/22 23:22 Hemoglobin A1c 5.7 % (0.0-6.0) 01/22/22 23:22 Calcium 9.7 mg/dL (8.4-10.2) 01/22/22 23:22 Magnesium 2.1 mg/dL (1.6-2.3) 01/23/22 01:08 Total Bilirubin 1.0 mg/dL (0.2-1.3) 01/22/22 23:22 AST 39 U/L (14-36) H 01/22/22 23:22 ALT 28 U/L (4-34) 01/22/22 23:22 Alkaline Phosphatase 71 U/L (38-126) 01/22/22 23:22 Total Protein 8.1 g/dL (6.3-8.2) 01/22/22 23:22 Albumin 4.9 g/dL (3.5-5.0) 01/22/22 23:22 Triglycerides 47.40 mg/dL (0.00-149.00) 01/22/22 23:22 Cholesterol 252.00 mg/dL (0.00-200.00) H 01/22/22 23:22 LDL Cholesterol Direct 145.00 mg/dL (0.00-129.00) H 01/22/22 23: LDL Cholesterol, Calc mg/dL (0.0-131.0) 01/22/22 23:22 VLDL Cholesterol, Calc mg/dL (5.00-40.00) 01/22/22 23: HDL Cholesterol 78.80 mg/dL (40.00-60.00) H 01/22/22 23:22 Cholesterol/HDL Ratio 3.20 Ratio 01/22/22 23: Lipase 27 U/L (23-300) 01/22/22 23: TSH 0.265 mIU/L (0.465-4.680) L 01/22/22 23: Total T4 6.6 ug/dL (4.5 - 10.9) 01/26/22 11:45 Urine Color Colorless 01/25/22 17:15 Urine Appearance Clear (Clear) 01/25/22 17:15 Urine pH 5.5 (5.0-8.0) 01/25/22 17:15 Ur Specific [place] 1.008 (1.001-1.035) 01/25/22 17:15 Urine Protein Negative (Negative) 01/25/22 17:15 Urine Glucose (UA) Negative (Negative) 01/25/22 17:15 Urine Ketones Negative (Negative) 01/25/22 17:15 Urine Blood Negative (Negative) 01/25/22 17:15 Urine Nitrite Negative (Negative) 01/25/22 17:15 Urine Bilirubin Negative (Negative) 01/25/22 17:15 Urine Urobilinogen <2.0 mg/dL (<2.0) 01/25/22 17:15 Ur Leukocyte Esterase Negative (Negative) 01/25/22 17:15 Urine HCG, Qual Not Detected (Not Detectd) 01/25/22 17:15 Salicylates <1.0 mg/dL 01/22/22 23:22 Acetaminophen <10.0 ug/mL 01/22/22 23:22 Serum Alcohol <10 mg/dL 01/22/22 23:22 Coronavirus (PCR) Not Detected (Not Detectd) 01/23/22 06:11 Allergies Allergy/AdvReac Type Severity Reaction Status Date / Time codeine Allergy Unknown Verified 01/23/22 13:58 Penicillins Allergy Rash/Hives Verified 01/23/22 13:58 sulfamethoxazole Allergy Rash/Hives Verified 01/23/22 13:58 [From Bactrim] trimethoprim [From Bactrim] Allergy Rash/Hives Verified 01/23/22 13:58 erythromycin base AdvReac Nausea & Verified 01/23/22 13:58 Vomiting Patient Condition at Discharge: Stable Plan - Discharge Summary Discharge Rx Participant: No New Discharge Prescriptions: New levETIRAcetam [Keppra] 500 mg PO Q12HR 30 Days tab FLUoxetine HCL [PROzac] 30 mg PO DAILY 30 Days cap busPIRone HCl [Buspar] 10 mg PO TID 30 Days tab cloNIDine HCL [Catapres] 0.1 mg PO BID 30 Days tab Nicotine Gum (Polacrilex) [Nicorette] 2 mg BUCCAL Q4HR PRN 30 Days pieceofgum PRN Reason: Nicotine Cravings QUEtiapine [SEROquel] 150 mg PO HS 30 Days tab Topiramate [Topamax] 100 mg PO BID 30 Days tab Continue SUMAtriptan succinate [Imitrex] 100 mg PO BID PRN PRN Reason: Migraine Headache Ondansetron Odt [Zofran ODT] 4 mg PO Q6H PRN PRN Reason: Nausea Albuterol Sulfate [Proair Hfa] 2 puff INHALATION RT-BID PRN PRN Reason: Shortness Of Breath Fluticasone Propion/Salmeterol [Advair 500-50 Diskus] 1 puff INHALATION RT- BID Albuterol Sulfate [Proair Hfa] 2 puff INHALATION RT-BID PRN PRN Reason: Shortness Of Breath Omeprazole [PriLOSEC] 20 mg PO DAILY Buprenorphine HCl/Naloxone HCl [Suboxone 8 mg-2 mg Sl Film] 1 film SL TID Discontinued cloNIDine HCL [Catapres] 0.1 mg PO BID buPROPion HCL [Wellbutrin XL] 150 mg PO HS QUEtiapine [SEROquel] 100 mg PO HS Naloxone HCl [Narcan] 1 spray NASAL DIRECTED PRN PRN Reason: overdose levETIRAcetam [Keppra] 500 mg PO Q12HR PRN PRN Reason: Seizures FLUoxetine HCL [PROzac] 20 mg PO DAILY ALPRAZolam [Xanax] 2 mg PO DAILY PRN PRN Reason: Anxiety Ibuprofen [Motrin Ib] 800 mg PO Q6H PRN PRN Reason: Pain Acetaminophen Tab [Tylenol] 1,000 mg PO Q6HR PRN PRN Reason: Pain ALPRAZolam [Xanax] 2 mg PO DAILY PRN PRN Reason: Anxiety Mirtazapine [Remeron] 15 mg PO HS levETIRAcetam [Keppra] 500 mg PO Q12HR #14 tab Topiramate [Topamax] 100 mg PO BID QUEtiapine [SEROquel] 100 mg PO HS cloNIDine HCL [Catapres] 0.1 mg PO BID Ibuprofen [Motrin] 600 mg PO Q6HR PRN PRN Reason: Pain Discharge Medication List Albuterol Sulfate [Proair Hfa] 2 puff INHALATION RT-BID PRN 08/03/21 [History] Fluticasone Propion/Salmeterol [Advair 500-50 Diskus] 1 puff INHALATION RT-BID 08/03/21 [History] Albuterol Sulfate [Proair Hfa] 2 puff INHALATION RT-BID PRN 01/10/22 [History] Buprenorphine HCl/Naloxone HCl [Suboxone 8 mg-2 mg Sl Film] 1 film SL TID 01/10/22 [History] Omeprazole [PriLOSEC] 20 mg PO DAILY 01/10/22 [History] Ondansetron Odt [Zofran ODT] 4 mg PO Q6H PRN 01/10/22 [History] SUMAtriptan succinate [Imitrex] 100 mg PO BID PRN 01/10/22 [History] FLUoxetine HCL [PROzac] 30 mg PO DAILY 30 Days cap 01/31/22 [Rx] Nicotine Gum (Polacrilex) [Nicorette] 2 mg BUCCAL Q4HR PRN 30 Days pieceofgum 01/31/22 [Rx] QUEtiapine [SEROquel] 150 mg PO HS 30 Days tab 01/31/22 [Rx] Topiramate [Topamax] 100 mg PO BID 30 Days tab 01/31/22 [Rx] busPIRone HCl [Buspar] 10 mg PO TID 30 Days tab 01/31/22 [Rx] cloNIDine HCL [Catapres] 0.1 mg PO BID 30 Days tab 01/31/22 [Rx] levETIRAcetam [Keppra] 500 mg PO Q12HR 30 Days tab 01/31/22 [Rx] Follow up Appointment(s)/Ref[facility] - 02/01/22 10:00 am Eugene Romero MD [Primary Care Provider] - 1-2 days Patient Instructions/Handouts: How to Stop Smoking (DC), Depression (DC) Activity/Diet/Wound Care/Special Instructions: Avoid the use of street drugs and alcohol. Take all prescriptions as prescribed. When you are in need of refills on your medications, please contact your medical provider and/or outpatient psychiatrist to have this done. Please go to scheduled outpatient appointment for aftercare treatment. If symptoms return or become worse, call the crisis line at and/or go to the nearest emergency room for evaluation. Discharge Disposition: HOME SELF-CARE
== END 2022-01-31 12:15 | disposition home or self-care (01) | DRG 885 ==
LOC: EC 22:07 → 3MHU 01-23 07:20
PROVIDERS: ADMIT Psychiatry & Neurology Psychiatry; ATTEND Psychiatry & Neurology Psychiatry
DX: F23 Brief psychotic disorder (principal); R45.851 Suicidal ideations; F15.23 Other stimulant dependence with withdrawal; F11.20 Opioid dependence, uncomplicated; G40.909 Epilepsy, unspecified, not intractable, without status epilepticus; J45.909 Unspecified asthma, uncomplicated; F32.9 Major depressive disorder, single episode, unspecified; F41.9 Anxiety disorder, unspecified; F17.210 Nicotine dependence, cigarettes, uncomplicated; G47.00 Insomnia, unspecified; Z59.00 Homelessness unspecified; Z79.899 Other long term (current) drug therapy; Z79.51 Long term (current) use of inhaled steroids; Z88.0 Allergy status to penicillin; Z88.2 Allergy status to sulfonamides; Z88.1 Allergy status to other antibiotic agents; Z88.5 Allergy status to narcotic agent; Z82.0 Family history of epilepsy and other diseases of the nervous system; Z82.49 Family history of ischemic heart disease and other diseases of the circulatory system
CPT/HCPCS: 36415; 80053; 80061; 80143; 80179; 80320; 81003; 81025; 83036; 83690; 83721; 83735; 84436; 84443; 85025; 87635; 93005; 96365; 96366; 99285

== ENCOUNTER 2024-05-11 19:32 | Inpatient (IN) | payer OTHER ==
--- NOTE | 2024-05-11 20:32 | ED ---
General Adult HPI - General Source: patient, RN notes reviewed <Morenita Cordon - Last Filed: 05/11/24 23:35> - General Source: patient, RN notes reviewed Mode of arrival: ambulatory Limitations: no limitations <Balta Panda - Last Filed: 05/12/24 00:58> - General Stated complaint: Abscess Time Seen by Provider: 05/11/24 19:50 - History of Present Illness Initial comments: This is a 29-year-old female with history of heroin abuse presenting to emergency room with referral from urgent care for complaint of abscess to the right elbow. Patient states that she had a relapse from heroin recently and noticed an area of redness at a previous injection site of her right elbow. States that this morning the area began to form an abscess with redness, swelling, and redness streaking down her arm. Patient states that she had a fever earlier today and has been experiencing nausea with no emesis. Denies known history of MRSA infection. (Morenita Cordon) 29-year-old female presents to right arm abscess and cellulitis. Patient has a history of heroin abuse,, reports injection site, abscess quickly spreading with increasing pain and discoloration of her right arm. (Balta Panda) - Related Data Home Medications Medication Instructions Recorded Confirmed Albuterol Sulfate [Proair Hfa] 2 puff INHALATION RT-BID PRN 08/03/21 08/03/21 Fluticasone Propion/Salmeterol 1 puff INHALATION RT-BID 08/03/21 08/03/21 [Advair 500-50 Diskus] Albuterol Sulfate [Proair Hfa] 2 puff INHALATION RT-BID PRN 01/10/22 01/10/22 Buprenorphine HCl/Naloxone HCl 1 film SL TID 01/10/22 01/10/22 [Suboxone 8 mg-2 mg Sl Film] Omeprazole [PriLOSEC] 20 mg PO DAILY 01/10/22 01/10/22 Ondansetron Odt [Zofran ODT] 4 mg PO Q6H PRN 01/10/22 01/10/22 SUMAtriptan succinate [Imitrex] 100 mg PO BID PRN 01/10/22 01/10/22 Previous Rx's Medication Instructions Recorded FLUoxetine HCL [PROzac] 30 mg PO DAILY 30 Days cap 01/31/22 Nicotine Gum (Polacrilex) 2 mg BUCCAL Q4HR PRN 30 Days 01/31/22 [Nicorette] pieceofgum QUEtiapine [SEROquel] 150 mg PO HS 30 Days tab 01/31/22 Topiramate [Topamax] 100 mg PO BID 30 Days tab 01/31/22 busPIRone HCl [Buspar] 10 mg PO TID 30 Days tab 01/31/22 cloNIDine HCL [Catapres] 0.1 mg PO BID 30 Days tab 01/31/22 levETIRAcetam [Keppra] 500 mg PO Q12HR 30 Days tab 01/31/22 Allergies Allergy/AdvReac Type Severity Reaction Status Date / Time codeine Allergy Unknown Verified 05/11/24 21:29 Penicillins Allergy Rash/Hives Verified 05/11/24 21:29 sulfamethoxazole Allergy Rash/Hives Verified 05/11/24 21:29 [From Bactrim] trimethoprim [From Bactrim] Allergy Rash/Hives Verified 05/11/24 21:29 erythromycin base AdvReac Nausea & Verified 05/11/24 21:29 Vomiting Review of Systems ROS Other: All systems not noted in ROS Statement are negative. <Morenita Cordon - Last Filed: 05/11/24 23:35> ROS Other: All systems not noted in ROS Statement are negative. <Balta Panda - Last Filed: 05/12/24 00:58> ROS Statement: Those systems with pertinent positive or pertinent negative responses have been documented in the HPI. Past Medical History Past Medical History: Asthma, Seizure Disorder Additional Past Medical History / Comment(s): migraines History of Any Multi-Drug Resistant Organisms: None Reported Past Surgical History: No Surgical Hx Reported Additional Past Surgical History / Comment(s): Left big toe surgery Past Anesthesia/Blood Transfusion Reactions: No Reported Reaction Past Psychological History: Anxiety, Depression, No Psychological Hx Reported Past Alcohol Use History: None Reported, Occasional Past Drug Use History: Heroin, IV Drug Use, Marijuana, Methamphetamine - Past Family History Mother Family Medical History: No Reported History Additional Family Medical History / Comment(s): Epilepsy Father Family Medical History: Hypertension <Morenita Cordon - Last Filed: 05/11/24 23:35> General Exam General appearance: alert, in no apparent distress Eye exam: Present: normal appearance, PERRL, EOMI. Absent: scleral icterus, conjunctival injection, periorbital swelling Neck exam: Present: normal inspection. Absent: tenderness, meningismus, lymphadenopathy Respiratory exam: Present: normal lung sounds bilaterally. Absent: respiratory distress, wheezes, rales, rhonchi, stridor Cardiovascular Exam: Present: regular rate, normal rhythm, normal heart sounds. Absent: systolic murmur, diastolic murmur, rubs, gallop, clicks GI/Abdominal exam: Present: soft, normal bowel sounds. Absent: distended, tenderness, guarding, rebound, rigid Right Elbow exam: Present: tenderness (lateral elbow), swelling, erythema. Absent: effusion Neuro motor exam: Present: wrist extension intact, thumb opposition intact Vascular: Present: radial pulse (2+). Absent: vascular compromise Back exam: Present: normal inspection Skin exam: Present: warm, dry, intact, normal color. Absent: rash <Morenita Cordon - Last Filed: 05/11/24 23:35> Limitations: no limitations General appearance: alert, in no apparent distress Respiratory exam: Present: normal lung sounds bilaterally. Absent: respiratory distress, wheezes, rales, rhonchi, stridor Cardiovascular Exam: Present: regular rate, normal rhythm, normal heart sounds. Absent: systolic murmur, diastolic murmur, rubs, gallop, clicks Right Elbow exam: Present: tenderness, swelling, erythema <Balta Panda - Last Filed: 05/12/24 00:58> - General Exam Comments Initial Comments: Visual Physical Exam Vital signs reviewed General: Well-appearing, nontoxic, no acute distress. Head: Normocephalic, atraumatic Eyes: PERRLA, EOMI ENT: Airway patent Chest: Nonlabored breathing Skin: No visual rash, normal skin tone Neuro: Alert and oriented 3 Musculoskeletal: No gross abnormalities (Morenita Cordon) Course Vital Signs 05/11/24 21:30 Temperature 98.4 F Pulse Rate 118 H Respiratory 18 Rate Blood Pressure 118/78 O2 Sat by Pulse 99 Oximetry Medical Decision Making <Morenita Cordon - Last Filed: 05/11/24 23:35> - Lab Data Result diagrams: 05/11/24 23:45 05/11/24 23:45 <Balta Panda M - Last Filed: 05/12/24 00:58> - Medical Decision Making Was pt. sent in by a medical professional or institution ([facility], [facility]IP[facility], urgent care, hospital, or usp...) When possible be specific @ -[No] Did you speak to anyone other than the patient for history (EMS, parent, family, police, friend...)? What history was obtained from this source @ -[No] Did you review nursing and triage notes (agree or disagree)? Why? @ -[I reviewed and agree with nursing and triage notes] Were old charts reviewed (outside hosp., previous admission, EMS record, old EKG, old radiological studies, urgent care reports/EKG's, usp records)? Report findings @ -[No old charts were reviewed] Differential Diagnosis (chest pain, altered mental status, abdominal pain women, abdominal pain men, vaginal bleeding, weakness, fever, dyspnea, syncope, headache, dizziness, GI bleed, back pain, seizure, CVA, palpatations, mental health, musculoskeletal)? @ -Cellulitis, septic arthritis, abscess, this list is not all inclusive EKG interpreted by me (3pts min.). @ -None X-rays interpreted by me (1pt min.). @ -X-ray of the right elbow reveals prominent soft tissue swelling of the lateral elbow, may be subcutaneous CT interpreted by me (1pt min.). @ -[None done] U/S interpreted by me (1pt. min.). @ -[None done] What testing was considered but not performed or refused? (CT, X-rays, U/S, labs)? Why? @ -[None] What meds were considered but not given or refused? Why? @ -[None] Did you discuss the management of the patient with other professionals (professionals i.e. MIKAEL Ferris, [facility]ANDY DIPPER, lab, RT, psych nurse, social work coordinator, contract lead, teacher, sea air land officer, case finishing machine adjuster)? Give summary @ -[No] Was smoking cessation discussed for >3mins.? @ -[No] Was critical care preformed (if so, how long)? @ -[No] Were there social determinants of health that impacted care today? How? (Homelessness, low income, unemployed, alcoholism, drug addiction, transportation, low edu. Level, literacy, decrease access to med. care, skilled nursing, rehab)? @ -[No] Was there de-escalation of care discussed even if they declined (Discuss DNR or withdrawal of care, Hospice)? DNR status @ -[No] What co-morbidities impacted this encounter? (DM, HTN, Smoking, COPD, CAD, Cancer, CVA, ARF, Chemo, Hep., AIDS, mental health diagnosis, sleep apnea, morbid obesity)? @ -[None] Was patient admitted / discharged? Hospital course, mention meds given and route, prescriptions, significant lab abnormalities, going to OR and other pertinent info. @ -29-year-old female with right lateral elbow abscess. abscess is approximately 2 cm area of fluctuance and erythema over the right lateral elbow with surrounding erythema and edema with erythema streaking down the arm. Area is warm to the touch. pain with range of motion of the right elbow. X-ray remarkable for soft tissue swelling of the lateral elbow. patient is signed out to Balta Panda PA-C, pending laboratory results and disposition. Undiagnosed new problem with uncertain prognosis? @ -[No] Drug Therapy requiring intensive monitoring for toxicity (Heparin, Nitro, Insulin, Cardizem)? @ -[No] Were any procedures done? @ -[No] Diagnosis/symptom? @ -[default] Acute, or Chronic, or Acute on Chronic? @ -[default] Uncomplicated (without systemic symptoms) or Complicated (systemic symptoms)? @ -[default] Side effects of treatment? @ -[No] Exacerbation, Progression, or Severe Exacerbation? @ -[No] Poses a threat to life or bodily function? How? (Chest pain, USA, DE, pneumonia, PE, COPD, DKA, ARF, appy, cholecystitis, CVA, Diverticulitis, Homicidal, Suicidal, threat to staff... and all critical care pts) @ -[No] (Morenita Cordon) Was patient admitted / discharged? Hospital course, mention meds given and route, prescriptions, significant lab abnormalities, going to OR and other pertinent info. @ -Patient is admitted to hospital for IV antibiotics for right arm lymphangitis, cellulitis with central abscess formation patient was started on vancomycin. Undiagnosed new problem with uncertain prognosis? @ -[No] Drug Therapy requiring intensive monitoring for toxicity (Heparin, Nitro, Insulin, Cardizem)? @ -[No] Were any procedures done? @ -[No] Diagnosis/symptom? @ -Right arm abscess, cellulitis Acute, or Chronic, or Acute on Chronic? @ -Acute Uncomplicated (without systemic symptoms) or Complicated (systemic symptoms)? @ -Complicated Side effects of treatment? @ -[No] Exacerbation, Progression, or Severe Exacerbation? @ -[No] Poses a threat to life or bodily function? How? (Chest pain, USA, DE, pneumonia, PE, COPD, DKA, ARF, appy, cholecystitis, CVA, Diverticulitis, Homicidal, Suicidal, threat to staff... and all critical care pts) @ -Yes possible underlying sepsis from abscess (Balta Panda) - Lab Data Lab Results 05/11/24 05/11/24 05/11/24 Range/Units 23:45 23:45 23:45 WBC 15.3 H (3.8-10.6) k/uL RBC 4.51 (3.80-5.40) m/uL Hgb 13.7 (11.4-16.0) gm/dL Hct 40.2 (34.0-46.0) % MCV 89.1 (80.0-100.0) fL MCH 30.3 (25.0-35.0) pg MCHC 34.0 (31.0-37.0) g/dL RDW 13.1 (11.5-15.5) % Plt Count 282 (150-450) k/uL MPV 7.1 Neutrophils % 82 % Lymphocytes % 13 % Monocytes % 4 % Eosinophils % 1 % Basophils % 0 % Neutrophils # 12.5 H (1.3-7.7) k/uL Lymphocytes # 2.0 (1.0-4.8) k/uL Monocytes # 0.6 (0-1.0) k/uL Eosinophils # 0.1 (0-0.7) k/uL Basophils # 0.1 (0-0.2) k/uL Sodium 138 (137-145) mmol/L Potassium 3.7 (3.5-5.1) mmol/L Chloride 106 (98-107) mmol/L Carbon Dioxide 24 (22-30) mmol/L Anion Gap 8 mmol/L BUN 13 (7-17) mg/dL Creatinine 0.61 (0.52-1.04) mg/dL Est GFR (CKD-EPI)AfAm >90 (>60 ml/min/1.73 sqM) Est GFR (CKD-EPI)NonAf >90 (>60 ml/min/1.73 sqM) Glucose 96 (74-99) mg/dL Plasma Lactic Acid Praveen 1.2 (0.7-2.0) mmol/L Calcium 8.9 (8.4-10.2) mg/dL Total Bilirubin 1.2 (0.2-1.3) mg/dL AST 18 (14-36) U/L ALT 10 (4-34) U/L Alkaline Phosphatase 48 (38-126) U/L C-Reactive Protein 0.7 (<1.0) mg/dL Total Protein 6.9 (6.3-8.2) g/dL Albumin 4.5 (3.5-5.0) g/dL Disposition <Morenita Cordon - Last Filed: 05/11/24 23:35> Time of Disposition: 00:58 <Balta Panda - Last Filed: 05/12/24 00:58> Clinical Impression: Abscess of right arm, Right arm cellulitis Disposition: ADMITTED IP TO THIS HOSP Condition: Fair Referrals: Eugene Romero MD [Primary Care Provider] - 1-2 days
--- NOTE | 2024-05-11 20:46 | XR ---
EXAMINATION TYPE: XR elbow complete RT DATE OF EXAM: 05/11/2024 8:41 PM COMPARISON: None. CLINICAL INDICATION: Female, 29 years old with history of abscess, pain, TECHNIQUE: 3 view(s) obtained. FINDINGS: Radius lines millimeters the humerus. Anterior fat pad is normal. No elevation of the posterior fat p ad is evident which is normal. No acute fractures or dislocations evident. There is prominent soft ti ssue swelling over the lateral elbow. Subcutaneous edema and some thickening of the skin may be evide nt on the AP projection. If there is clinical concern for abscess, consider ultrasound. IMPRESSION: 1. Prominent soft tissue swelling lateral elbow may be subcutaneous. Consider ultrasound for additio nal evaluation. [facility], , 05/11/2024 8:43 PM
[2024-05-12 00:07] LABS: Basophils # (A) 0.1 k/uL (0-0.2); Basophils % (A) 0 %; Eosinophils # (A) 0.1 k/uL (0-0.7); Eosinophils % (A) 1 %; HCT 40.2 % (34.0-46.0); HGB 13.7 gm/dL (11.4-16.0); Lymphocytes % (A) 13 %; MCH 30.3 pg (25.0-35.0); MCV 89.1 fL (80.0-100.0); Mean Platelet Volume 7.1; Monocytes # (A) 0.6 k/uL (0-1.0); Monocytes % (A) 4 %; Neutrophils # (A) 12.5 k/uL (1.3-7.7); Neutrophils % (A) 82 %; Platelet Count 282 k/uL (150-450); RBC 4.51 m/uL (3.80-5.40); RDW 13.1 % (11.5-15.5); WBC 15.3 k/uL (3.8-10.6)
[2024-05-12 00:20] LABS: ALT 10 U/L (4-34); AST 18 U/L (14-36); African American GFR (CKD) >90 (>60 ml/min/1.73 sqM); Albumin 4.5 g/dL (3.5-5.0); Alkaline Phosphatase 48 U/L (38-126); Anion Gap 8 mmol/L; Blood Urea Nitrogen 13 mg/dL (7-17); C Reactive Protein 0.7 mg/dL (<1.0); Calcium 8.9 mg/dL (8.4-10.2); Carbon Dioxide 24 mmol/L (22-30); Chloride 106 mmol/L (98-107); Glucose 96 mg/dL (74-99); Non-African American GFR(CKD) >90 (>60 ml/min/1.73 sqM); Potassium 3.7 mmol/L (3.5-5.1); Sodium 138 mmol/L (137-145); Total Bilirubin 1.2 mg/dL (0.2-1.3); Total Protein 6.9 g/dL (6.3-8.2)
[2024-05-12] MEDS: KETOROLAC 15 MG/ML 1 ML VIAL IVP STA (00:54)
[2024-05-12] MEDS ORDERED: VANCOMYCIN IV PER PHARMACY 1 EACH MISC MISCELLANE PRN (00:55)
[2024-05-12] MEDS ORDERED: NALOXONE 0.4 MG/ML 1 ML VIAL IV PRN (00:58)
[2024-05-12 01:27] LABS: Urn Cannabinoid Scrn Detected (NotDetected)
[2024-05-12 01:28] LABS: Amphetamine Screen,Urine Detected (NotDetected); Barbiturate Screen,Urine Not Detected (NotDetected); Benzodiazepines Screen,Urine Detected (NotDetected); Cocaine Screen,Urine Not Detected (NotDetected); Methadone Screen, Urine Not Detected (NotDetected); Opiate Screen,Urine Detected (NotDetected); Oxycodone Screen, Urine Not Detected (NotDetected); Phencyclidine Screen,Urine Not Detected (NotDetected); Tricyclic Antidepressant,Urine Detected (NotDetected)
[2024-05-12] MEDS: VANCOMYCIN 1,000 MG in SODIUM CHLORIDE 0.9% 250 ML IVPB STA (01:50)
[2024-05-12] MEDS: ACETAMINOPHEN TAB 325 MG TAB PO PRN (02:51)
[2024-05-12] MEDS: KETOROLAC 15 MG/ML 1 ML VIAL IVP PRN (06:50)
[2024-05-12 09:55] LABS: Erythrocyte Sedimentation Rate 18 mm/Hr (0-20)
[2024-05-12] MEDS ORDERED: ONDANSETRON ODT 4 MG TAB PO PRN (11:37)
[2024-05-12] MEDS: levETIRAcetam 500 MG TAB PO SCH (13:54)
[2024-05-12] MEDS: cloNIDine HCL 0.1 MG TAB PO SCH (13:55)
[2024-05-12] MEDS: VANCOMYCIN 1,000 MG in SODIUM CHLORIDE 0.9% 250 ML IVPB SCH (13:58)
[2024-05-12] MEDS ORDERED: MIDAZOLAM 2 MG/2 ML VIAL ONE (18:15)
[2024-05-12] MEDS ORDERED: SUCCINYLCHOLINE CHLORIDE 200 MG/10 ML VIAL IV ONE (18:15)
[2024-05-12] MEDS ORDERED: fentaNYL (PF) 50 MCG/ML 2 ML AMP ONE (18:15)
[2024-05-12] MEDS ORDERED: LIDOCAINE 1% INJ 10MG/ML (20 ML MDV) ONE (18:15)
[2024-05-12] MEDS ORDERED: PROPOFOL 10 MG/ML 20 ML VIAL IV ONE (18:15)
[2024-05-12] MEDS: LACTATED RINGERS 1,000 ML IV ONE (18:20)
--- NOTE | 2024-05-12 18:55 | P.PCN ---
Description of Procedure: Preop diagnosis right elbow graft and amphetamine sulfate injections Postop the same Procedure thank you I&D of the abscess and debridement of the right arm Patient was brought to the operating room right arm was prepped and draped in Prestel sterile manner under general esthesia incision was made longitudinally at the left aspect of the elbow deepened through skin fat and fascia wound lot of pus came out there was fat necrosis which was also removed with curette we took the deep culture was irrigated with hydroperoxide and saline extra silver rope was applied to the wound dressing applied patient was transferred to the recovery process with condition
[2024-05-12] MEDS: ONDANSETRON 4 MG/2 ML VIAL IVP PRN (19:29)
[2024-05-12] MEDS: DEXAMETHASONE SOD PHOSPHATE 4 MG/ML 1 ML VIAL IVP STA (19:30)
[2024-05-12] MEDS: TOPIRAMATE 100 MG TAB PO SCH (22:41)
--- NOTE | 2024-05-13 01:50 | HP ---
HISTORY AND PHYSICAL CHIEF COMPLAINT: Abscess of the right elbow. HISTORY OF PRESENT ILLNESS: This is another admission for this 29-year-old white female who has had a drug problem most of her adult life. She has not been seen in the office for some time. She had been on Suboxone and was doing fairly well and then she disappeared. She presented to the emergency room with an abscess in the right elbow, likely related to a drug injection, but she denies it. She is very lethargic. In the emergency room, she did have a fever and a white count was 15,300. REVIEW OF SYSTEMS: Otherwise unobtainable due to her lethargy, and unremarkable. Past medical history, family history, personal and social histories are otherwise unobtainable. PHYSICAL EXAMINATION: VITAL SIGNS: Normal except for temperature of 100.1. HEAD, EARS, EYES, NOSE, MOUTH, AND THROAT: Normal. CHEST: Clear. CARDIAC: Normal. There are no murmurs. ABDOMEN: Soft, nontender. EXTREMITIES: Normal. Right elbow is dressed with a Kerlix. NEUROLOGICAL: She is lethargic probably from drugs she has taken, which appear on her drug screen. IMPRESSION: 1. Cellulitis and abscess of the right elbow. 2. History of drug addiction. 3. Obtundation. PLAN: 1. Bed rest. 2. IV fluids. 3. IV antibiotics. 4. Surgery consult. KELLI / ROSALIE: [id number] /
[2024-05-13 06:10] LABS: African American GFR (CKD) >90 (>60 ml/min/1.73 sqM); Non-African American GFR(CKD) >90 (>60 ml/min/1.73 sqM)
[2024-05-13] MEDS: PANTOPRAZOLE 40 MG TABLET PO SCH (10:58)
[2024-05-13] MEDS: FLUoxetine HCL 10 MG CAP PO SCH (10:58)
[2024-05-13] MEDS ORDERED: ALBUTEROL NEBULIZED 2.5 MG/3 ML INHALATION PRN (14:09)
[2024-05-13] MEDS: NON FORMULARY DRUG (Buprenorphine Hcl/Naloxone Hcl [Suboxone 8 Mg-2 Mg Sl Film] 1 EACH Fil SUBLINGUAL SCH (16:06)
--- NOTE | 2024-05-13 16:45 | P.PN ---
Progress Note - Text 29-year-old white female patient came with history of abscess right cubital fossa patient had I&D of the abscess we took the deep culture today will change the dressing using silver rope and patient IV antibiotic change dressing tomorrow
[2024-05-13] MEDS: SERTRALINE 50 MG TAB PO SCH (21:15)
[2024-05-13] MEDS: QUEtiapine 100 MG TAB PO SCH (21:16)
[2024-05-14] MEDS: LORATADINE 10 MG TAB PO SCH (09:06)
[2024-05-14] MEDS: ARIPiprazole 10 MG TAB PO SCH (09:06)
[2024-05-14 13:20] LABS: African American GFR (CKD) >90 (>60 ml/min/1.73 sqM); Non-African American GFR(CKD) >90 (>60 ml/min/1.73 sqM)
[2024-05-14] MEDS: VANCOMYCIN TROUGH DUE 1 EACH MISC MISCELLANE ONE (13:36)
--- NOTE | 2024-05-14 14:56 | P.PN ---
Progress Note - Text 29-year-old white female patient had abscess right cubital fossa had a I&D and debridement culture came back as a MRSA patient is IV antibiotic we will changing the dressing with extra silver rope base of the wound is clean dressing should be changed every 48 hours using the rope
--- NOTE | 2024-05-14 15:27 | CDI ---
Documentation Clarification Form Date: 05/14/2024 03:09:57 PM From: Alix Miller RN, CCDS Phone: [phone] Admit Date: 05/12/2024 01:07:00 AM Patient Name: Irina Simpson Visit Number: [id number] Discharge Date: ATTENTION: The Clinical Documentation Specialists (CDI) and [facility] Coding Staff appreciate your assistance in clarifying documentation. Please respond to the clarification below the line at the bottom and electronically sign. The CDI & [facility] Coding staff will review the response and follow-up if needed. Please note: Queries are made part of the Legal Health Record. If you have any questions, please contact the author of this message via ITS. Doctor/Provider: Jose Prince A debridement is documented on 05/12/24. Unfortunately, some required elements have not been documented. Additional clarification regarding the procedure is requested. History/Risk Factors: Asthma, Seizure Disorder, drug addiction. Clinical Indicators: 29-year-old female with history of heroin abuse presenting to ED with abscess right cubital fossa had I&D with Debridement of the right arm on 05/11/24. Treatment: Wound dressing applied after procedure Vancomycin HCL 1,000mg IVPB Q HR (PTD) Please clarify the procedure performed: [x ] Excisional debridement (the removal of necrotic, devitalized tissue or slough by means of cutting away of tissue) Instrument: Curette Nature of the tissue removed fat necrosis Appearance of the wound Depth of debridement [ ] Non-excisional debridement (the removal of necrotic, devitalized tissue or slough by means of flushing, brushing, or washing. (Irrigation) Instrument: blade Nature of the tissue removed: necrotic Appearance of the wound Depth of debridement [ x ] Other; please specify : Subcutaneous Dr. Prince Five elements required for accurate and compliant documentation of a debridement: -Technique used (e.g., excisional, excised, cutting, brushing, jet lavage etc.) -Instrument(s) used (e.g., scalpel, curette, etc.) -Nature of the tissue removed (e.g., necrotic, devitalized tissues, non-viable tissue, etc.) -Appearance and size of the wound (e.g., down to fresh bleeding tissue, 7cm x 10cm, etc.) -Depth of the debridement* (e.g., skin, subcutaneous tissue, fascia, muscle, bone, etc.) (Template Last Revised: February 2024) MTDD
[2024-05-14] MEDS: diphenhydrAMINE 25 MG CAP PO PRN (17:37)
[2024-05-14] MEDS: methylPREDNISolone SOD SUCCI 40 MG/ML 1 ML VIAL IV STA (19:41)
[2024-05-14] MEDS: VANCOMYCIN 1,000 MG in SODIUM CHLORIDE 0.9% 250 ML IVPB SCH (21:10)
--- NOTE | 2024-05-15 04:29 | PN ---
PROGRESS NOTE DATE OF SERVICE: 05/13/2024 CHIEF COMPLAINT: Abscess of the right elbow. HISTORY OF PRESENT ILLNESS: This lady continues receive local care for the abscess in the elbow along with IV antibiotics. She has no new complaints. PHYSICAL EXAMINATION: CHEST: Clear. CARDIAC: Normal. ABDOMEN: Soft and nontender. EXTREMITIES: The elbow was dressed and there is less edema. IMPRESSION: Abscess of the left elbow. PLAN: Continue with IV antibiotics. MMODL / IJN: [id number] /
--- NOTE | 2024-05-15 05:14 | PN ---
PROGRESS NOTE DATE OF SERVICE: 05/14/2024 CHIEF COMPLAINT: Abscess and cellulitis of the right elbow. HISTORY OF PRESENT ILLNESS: This lady has been stable. She has been afebrile. PHYSICAL EXAMINATION: CHEST: Clear. CARDIAC: Normal. ABDOMEN: Soft and nontender. IMPRESSION: 1. Abscess and cellulitis of the right elbow. 2. History of opioid addiction. PLAN: Continue with local wound care. She is requesting more analgesics, but when I entered the room, she was sound asleep. She is also on Suboxone. MMODL / IJN: [id number] /
--- NOTE | 2024-05-15 09:30 | P.CONS ---
History of Present Illness - Reason for Consult Consult date: 05/14/24 Staph abscess Requesting physician: Eugene Romero - Chief Complaint Right elbow pain swelling redness x days - History of Present Illness Patient is a 29-year-old female with a past medical history significant for asthma seizure disorder history of IV drug use presenting to the hospital 3 days ago concerning for abscess to the right elbow apparently the patient mention she did have a relapse on IV heroin recently and his use IV drugs to the right elbow area subsequently patient noticed having increasing swelling and redness to the right elbow area patient was describing pain to be sharp almost 10 out of 10 without radiation with associated swelling redness patient was initially evaluated in urgent care and subsequently has been sent to the [facility] ER for admission on presentation to the hospital the patient was afebrile no fever have been called subsequently patient was not tachycardic hypotensive or hypoxic patient did have white count of 15.3 on admission creatinine was normal electrolytes were normal liver is abnormal urine drug screen was positive for opiates tricyclic's amphetamines spent amphetamines benzos and marijuana patient has been evaluated by vascular surgery and patient did have a drainage of the right forearm abscess on 05/12/2020 for culture now showing presumed MRSA infectious disease was consulted today for further management of antibiotic therapy Review of Systems Positive point and negatives has been mentioned in the HPI, complete review of systems was performed and all other systems are negative Past Medical History Past Medical History: Asthma, Seizure Disorder Additional Past Medical History / Comment(s): migraines History of Any Multi-Drug Resistant Organisms: None Reported Past Surgical History: No Surgical Hx Reported Additional Past Surgical History / Comment(s): Left big toe surgery Past Anesthesia/Blood Transfusion Reactions: No Reported Reaction Past Psychological History: No Psychological Hx Reported, Anxiety, Depression, Panic Disorder, PTSD, Schizophrenia Smoking Status: Current every day smoker, Vaper Past Alcohol Use History: None Reported, Occasional Past Drug Use History: Heroin, IV Drug Use, Marijuana, Methamphetamine - Past Family History Mother Family Medical History: No Reported History Additional Family Medical History / Comment(s): Epilepsy Father Family Medical History: Hypertension Medications and Allergies Home Medications Medication Instructions Recorded Confirmed Type Buprenorphine HCl/Naloxone HCl 1 film SL TID 01/10/22 05/12/24 History [Suboxone 8 mg-2 mg Sl Film] Ondansetron Odt [Zofran ODT] 4 mg PO Q8H PRN 01/10/22 05/12/24 History SUMAtriptan succinate [Imitrex] 100 mg PO BID PRN 01/10/22 05/12/24 History Topiramate [Topamax] 100 mg PO BID 30 Days tab 01/31/22 05/12/24 Rx cloNIDine HCL [Catapres] 0.1 mg PO BID 30 Days tab 01/31/22 05/12/24 Rx levETIRAcetam [Keppra] 500 mg PO Q12HR 30 Days tab 01/31/22 05/12/24 Rx ARIPiprazole [Abilify] 10 mg PO DAILY 05/12/24 05/12/24 History Albuterol Sulfate [Ventolin HFA] 2 puff INHALATION RT-QID PRN 05/12/24 05/12/24 History Fexofenadine HCl [Tracie Allergy] 180 mg PO DAILY 05/12/24 05/12/24 History Fluticasone Nasal [place] [Flonase 2 spr EA NOSTRIL BID PRN 05/12/24 05/12/24 History Nasal [place]] Fluticasone Propion/Salmeterol 1 puff INHALATION RT-BID 05/12/24 05/12/24 History [Advair 250-50 Diskus] Ibuprofen [Motrin] 600 mg PO Q6H PRN 05/12/24 05/12/24 History QUEtiapine [SEROquel] 100 mg PO HS 05/12/24 05/12/24 History Sertraline [Zoloft] 50 mg PO HS 05/12/24 05/12/24 History clonazePAM [KlonoPIN] 2 mg PO TID PRN 05/12/24 05/12/24 History diphenhydrAMINE [Benadryl] 25 mg PO Q6H PRN 05/12/24 05/12/24 History Allergies Allergy/AdvReac Type Severity Reaction Status Date / Time codeine Allergy Unknown Verified 05/12/24 12:02 erythromycin base Allergy Hives/Nausea Verified 05/12/24 12:02 & Vomiting Penicillins Allergy Rash/Hives Verified 05/12/24 12:02 sulfamethoxazole Allergy Rash/Hives Verified 05/12/24 12:02 [From Bactrim] trimethoprim [From Bactrim] Allergy Rash/Hives Verified 05/12/24 12:02 Physical Exam Vitals: Vital Signs Temp Pulse Resp BP Pulse Ox 05/14/24 07:36 98.3 F 56 L 15 90/53 98 05/14/24 01:39 97.9 F 55 L 16 100/60 99 05/13/24 20:00 97.6 F 56 L 16 104/66 100 Intake and Output 05/13/24 05/14/24 05/14/24 22:59 06:59 14:59 Intake Total 250 Balance 250 Intake: Intake, IV Titration 250 Amount Vancomycin 1,000 mg In 250 Sodium Chloride 0.9% 250 ml @ 125 mls/hr IVPB Q12H [facility] Rx#:[id number] Other: Voiding Method Toilet # Voids 5 3 GENERAL DESCRIPTION: Middle-aged female lying in bed, no distress. No tachypnea or accessory muscle of respiration use. HEENT: Shows Pallor , no scleral icterus. Oral mucous membrane is dry. NECK: Trachea central, no thyromegaly. LUNGS: Unlabored breathing. Clear to auscultation anteriorly. No wheeze or crackle. HEART: S1, S2, regular rate and rhythm. No loud murmur ABDOMEN: Soft, no tenderness , guarding or rigidity, no organomegaly EXTREMITIES: Right elbow did have wound postsurgical drainage with no significant surrounding redness or foul-smelling drainage SKIN: No rash, no masses palpable. NEUROLOGICAL: The patient is awake, alert, oriented x3, mood and affect normal. Results CBC & Chem 7: 05/11/24 23:45 05/14/24 12:58 Labs: Microbiology - Last 24 Hours (Table) 05/12/24 02:00 Blood Culture - Preliminary Blood 05/12/24 18:46 Gram Stain - Preliminary Arm - Right Wound Culture - Preliminary Presumptive MRSA 05/12/24 18:46 Gram Stain - Preliminary Arm - Right Wound Culture - Preliminary Presumptive MRSA 05/12/24 13:57 Gram Stain - Preliminary Elbow - Right Wound Culture - Preliminary Presumptive MRSA Assessment and Plan (1) Allergy to multiple antibiotics Current Visit: Yes Status: Acute Code(s): Z88.1 - ALLERGY STATUS TO OTHER ANTIBIOTIC AGENTS SNOMED Code(s): 431208985 (2) Abscess of right arm Current Visit: Yes Status: Acute Code(s): L02.413 - CUTANEOUS ABSCESS OF RIGHT UPPER LIMB SNOMED Code(s): 98384284682352998 (3) Right arm cellulitis Current Visit: Yes Status: Acute Code(s): L03.113 - CELLULITIS OF RIGHT UPPER LIMB SNOMED Code(s): 36563256589414317 Plan: 1patient presented to hospital with right elbow injury pain swelling redness from injection drug use patient has been diagnosed with an abscess that has been surgically drained culture now showing preserved MRSA blood culture has been negative so far. 2patient with multiple antibiotic ALLERGIES that would limit the number of antibiotic safe to use 3vancomycin pharmacy to dose target trough of 15 while watching kidney function and Vanco trough closely. 4we will wait for sensitivity to finalize to determine her discharge antibiotics likely oral. We will follow on clinical condition and cultures to further adjust medication if needed Thank you for this consultation we will follow the patient along with you Dictation was produced using [employer] dictation software. please excuse any grammatical, word or spelling errors.
[2024-05-15 09:34] LABS: BUN/Creat Ratio 38.83 Ratio (12.00-20.00); Blood Urea Nitrogen 23.3 mg/dL (9.0-27.0); Chloride 104 mmol/L (96-109); Glucose 114 mg/dL (70-110); Potassium 4.4 mmol/L (3.5-5.5); Sodium 139 mmol/L (135-145)
[2024-05-15 09:35] LABS: ALT 14 U/L (8-44); AST 22 U/L (13-35); Albumin 3.4 g/dL (3.8-4.9); Albumin/Globulin Ratio 1.89 Ratio (1.60-3.17); Alkaline Phosphatase 44 U/L (41-126); Calcium 8.5 mg/dL (8.7-10.3); Globulin 1.8 g/dL (1.6-3.3); Total Bilirubin <0.2 mg/dL (0.3-1.2); Total Protein 5.2 g/dL (6.2-8.2)
[2024-05-15 10:46] LABS: Basophils # (A) 0.01 X 10*3/uL (0.00-0.10); Basophils % (A) 0.1 %; Eosinophils # (A) 0 X 10*3/uL (0.04-0.35); Eosinophils % (A) 0 %; HCT 32.2 % (37.2-46.3); Lymphocytes # (A) 0.97 X 10*3/uL (0.90-5.00); Lymphocytes % (A) 10.4 %; MCH 28.7 pg (27.0-32.0); MCHC 31.1 g/dL (32.0-37.0); MCV 92.5 FL (80.0-97.0); Mean Platelet Volume 11.2 FL (9.5-12.2); Monocytes # (A) 0.14 X 10*3/uL (0.20-1.00); Monocytes % (A) 1.5 %; NRBC Per 100 WBC 0 X 10*3/uL (0.00-0.01); Neutrophils % (A) 87.5 %; Platelet Count 274 X 10*3/uL (140-440); RBC 3.48 X 10*6/uL (4.10-5.20); WBC 9.37 X 10*3/uL (4.50-10.00)
--- NOTE | 2024-05-15 12:16 | P.PN ---
Progress Note - Text 29-year-old female patient was consulted with history of drug abuse right forearm by injecting amphetamine sulfate take the patient to the OR there was a large abscess with pus was drained and to the deep culture underneath the fascia and fat and fat was necrotic there was concern about very close to the brachial artery we removed all the devitalized tissue and been using silver rope which should be changed every other day patient is under care of infectious disease discussed with internal medicine patient lives alone I like to see him follow-up in the wound clinic on Friday because patient is close observation bri son is because this abscess was very close to the brachial artery and we have remove the necrotic tissue will change the dressing on Friday morning and make arrangement to follow-up in the wound clinic
--- NOTE | 2024-05-15 14:37 | P.PN ---
Subjective Progress Note Date: 05/15/24 Principal diagnosis: Reason for follow-up is right upper extremity abscess cellulitis Patient is a 29-year-old female with a past medical history significant for asthma seizure disorder history of IV drug use presenting to the hospital with right arm abscess and cellulitis status post drainage by vascular surgery culture with MRSA. On today's evaluation that is 05/15/2024, patient did not have any fever and denies any chills, patient is breathing comfortably on room air, patient with no chest pain or cough patient did not have any abdominal pain nausea vomiting or any loose stools still complaining of pain to the right forearm wound area. Patient white count is 9.37, creatinine 0.6 cultures with MRSA sensitive to vancomycin and Bactrim and tetracycline Objective - Vital Signs Vital signs: Vital Signs Temp 98.5 F 05/15/24 08:00 Pulse 55 L 05/15/24 08:00 Resp 15 05/15/24 08:00 BP 92/47 05/15/24 08:00 Pulse Ox 98 05/15/24 08:00 FiO2 Intake & Output 05/14/24 05/15/24 05/15/24 18:59 06:59 18:59 Other: Voiding Method Toilet Toilet # Voids 2 3 - Exam Middle-age female lying in bed in no distress Unlabored breathing Right upper extremity wound is currently packed with Aquacel silver surrounding swelling redness has improved no foul-smelling drainage Patient is awake alert oriented x 3 - Labs CBC & Chem 7: 05/15/24 05:38 05/15/24 05:38 Labs: Abnormal Lab Results - Last 24 Hours (Table) 05/15/24 05/15/24 Range/Units 05:38 05:38 RBC 3.48 L (4.10-5.20) X 10*6/uL Hgb 10.0 L (12.0-15.0) g/dL Hct 32.2 L (37.2-46.3) % MCHC 31.1 L (32.0-37.0) g/dL Immature Gran # 0.05 H (0.00-0.04) X 10*3/uL Neutrophils # 8.20 H (1.80-7.70) X 10*3/uL Monocytes # 0.14 L (0.20-1.00) X 10*3/uL Eosinophils # 0 L (0.04-0.35) X 10*3/uL Carbon Dioxide 20.0 L (21.6-31.8) mmol/L Anion Gap 15.00 H (4.00-12.00) mmol/L BUN/Creatinine Ratio 38.83 H (12.00-20.00) Ratio Glucose 114 H (70-110) mg/dL Calcium 8.5 L (8.7-10.3) mg/dL Total Bilirubin <0.2 L (0.3-1.2) mg/dL Total Protein 5.2 L (6.2-8.2) g/dL Albumin 3.4 L (3.8-4.9) g/dL Microbiology - Last 24 Hours (Table) 05/12/24 13:57 Gram Stain - Final Elbow - Right Wound Culture - Final Methicillin resist S. aureus 05/12/24 13:57 Anaerobic Culture - Preliminary Elbow - Right 05/12/24 02:00 Blood Culture - Preliminary Blood 05/12/24 18:46 Gram Stain - Preliminary Arm - Right Wound Culture - Preliminary Presumptive MRSA 05/12/24 18:46 Gram Stain - Preliminary Arm - Right Wound Culture - Preliminary Presumptive MRSA Assessment and Plan (1) Allergy to multiple antibiotics Current Visit: Yes Status: Acute Code(s): Z88.1 - ALLERGY STATUS TO OTHER ANTIBIOTIC AGENTS SNOMED Code(s): 199761800 (2) Abscess of right arm Current Visit: Yes Status: Acute Code(s): L02.413 - CUTANEOUS ABSCESS OF RIGHT UPPER LIMB SNOMED Code(s): 90433505588153759 (3) Right arm cellulitis Current Visit: Yes Status: Acute Code(s): L03.113 - CELLULITIS OF RIGHT UPPER LIMB SNOMED Code(s): 21292648598167691 Plan: 1patient presented to hospital with right elbow injury pain swelling redness from injection drug use patient has been diagnosed with an abscess that has been surgically drained culture now showing preserved MRSA blood culture has been negative so far. 2patient with multiple antibiotic ALLERGIES that would limit the number of antibiotic safe to use 3patient culture has been finalized with MRSA for the patient is covered with vancomycin pharmacy to dose target trough of 15 while watching kidney function and Vanco trough closely. Case discussed with the vascular surgeon as well as covering admitting team Dictation was produced using [employer] dictation software. please excuse any grammatical, word or spelling errors. Time with Patient: Less than 30
--- NOTE | 2024-05-15 23:23 | P.PN ---
Subjective Progress Note Date: 05/15/24 This is a 29 year old female who comes in with abscess in the Right AC. Underwent I and D with Dr Prince who states that the wound was deep and adjacent to the brachial artery and for this reason patient will remain in the hospital over the weekend and will continue with local wound care. The wound has been packed with aquacel silver and orders to change every 48 hours. Cultures are showing MRSA. Patient continues on IV vancomycin Review of Systems Constitutional: Denied any fatigue denied any fever. Cardio vascular: denied any chest pain, palpitations Gastrointestinal: denied any nausea, vomiting, diarrhea Pulmonary: Denied any shortness of breath cough Neurologic denied any new focal deficits All inpatient medications were reviewed and appropriate changes in these medications as dictated in the interval history and assessment and plan. PHYSICAL EXAMINATION: GENERAL: The patient is alert and oriented x3, not in any acute distress. Well developed, well nourished. HEENT: Pupils are round and equally reacting to light. EOMI. No scleral icterus. No conjunctival pallor. Normocephalic, atraumatic. No pharyngeal erythema. No thyromegaly. CARDIOVASCULAR: S1 and S2 present. No murmurs, rubs, or gallops. PULMONARY: Chest is clear to auscultation, no wheezing or crackles. ABDOMEN: Soft, nontender, nondistended, normoactive bowel sounds. No palpable organomegaly. MUSCULOSKELETAL: No joint swelling or deformity. EXTREMITIES: No cyanosis, clubbing, or pedal edema. NEUROLOGICAL: Gross neurological examination did not reveal any focal deficits. SKIN: No rashes. Packed wound to the left AC with purulent drainage. Assessment and Plan Infected abscess and cellulitis to the right forearm from IV drug use cultures growing MRSA History of asthma History of seizure disorder on IV Keppra History of polysubstance abuse and IV drug use. Gi prophylaxis Full Code Plan Continue IV antibiotics while in the hospital Oral antibiotics on discharge Continue local wound care The impression and plan of care has been dictated by Lyly Mtz, Nurse Practitioner as directed. Dr. Nicol MD I have performed a history and physical examination and medical decision making of this patient, discussed the same with the dictator, and agree with the dictators assessment and plan as written, documented as a scribe. Based on total visit time, I have performed more than 50% of this visit. Objective - Vital Signs Vital signs: Vital Signs Temp 98.6 F 05/15/24 13:18 Pulse 54 L 05/15/24 13:18 Resp 17 05/15/24 13:18 BP 93/57 05/15/24 13:18 Pulse Ox 97 05/15/24 13:18 FiO2 Intake & Output 05/14/24 05/15/24 05/15/24 18:59 06:59 18:59 Other: Voiding Method Toilet Toilet # Voids 2 3 - Labs CBC & Chem 7: 05/15/24 05:38 05/15/24 05:38 Labs: Abnormal Lab Results - Last 24 Hours (Table) 05/15/24 05/15/24 Range/Units 05:38 05:38 RBC 3.48 L (4.10-5.20) X 10*6/uL Hgb 10.0 L (12.0-15.0) g/dL Hct 32.2 L (37.2-46.3) % MCHC 31.1 L (32.0-37.0) g/dL Immature Gran # 0.05 H (0.00-0.04) X 10*3/uL Neutrophils # 8.20 H (1.80-7.70) X 10*3/uL Monocytes # 0.14 L (0.20-1.00) X 10*3/uL Eosinophils # 0 L (0.04-0.35) X 10*3/uL Carbon Dioxide 20.0 L (21.6-31.8) mmol/L Anion Gap 15.00 H (4.00-12.00) mmol/L BUN/Creatinine Ratio 38.83 H (12.00-20.00) Ratio Glucose 114 H (70-110) mg/dL Calcium 8.5 L (8.7-10.3) mg/dL Total Bilirubin <0.2 L (0.3-1.2) mg/dL Total Protein 5.2 L (6.2-8.2) g/dL Albumin 3.4 L (3.8-4.9) g/dL Microbiology - Last 24 Hours (Table) 05/12/24 18:46 Gram Stain - Final Arm - Right Wound Culture - Final Methicillin resist S. aureus 05/12/24 18:46 Gram Stain - Final Arm - Right Wound Culture - Final Methicillin resist S. aureus 05/12/24 02:00 Blood Culture - Preliminary Blood 05/12/24 13:57 Gram Stain - Final Elbow - Right Wound Culture - Final Methicillin resist S. aureus 05/12/24 13:57 Anaerobic Culture - Preliminary Elbow - Right Assessment and Plan Time with Patient: Less than 30
[2024-05-16] MEDS: VANCOMYCIN TROUGH DUE 1 EACH MISC MISCELLANE ONE (07:26)
[2024-05-16 08:06] LABS: African American GFR (CKD) >90 (>60 ml/min/1.73 sqM); Non-African American GFR(CKD) >90 (>60 ml/min/1.73 sqM)
[2024-05-16] MEDS: KETOROLAC 15 MG/ML 1 ML VIAL IVP PRN (12:31)
--- NOTE | 2024-05-16 12:50 | P.PN ---
Subjective Progress Note Date: 05/16/24 This is a 29 year old female who comes in with abscess in the Right AC. Underwent I and D with Dr Prince who states that the wound was deep and adjacent to the brachial artery and for this reason patient will remain in the hospital over the weekend and will continue with local wound care. The wound has been packed with aquacel silver and orders to change every 48 hours. Cultures are showing MRSA. Patient continues on IV vancomycin 05/16/2024 Patient evaluated today resting in bed. Reports pain to the abscess site states she can feel it in her "major artery" and is requesting additional pain medica tions. Discussed that she is on suboxone. IV toradol has been added. Patient will continue on IV vancomycin and wound will be changed tomorrow. Review of Systems Constitutional: Denied any fatigue denied any fever. Cardio vascular: denied any chest pain, palpitations Gastrointestinal: denied any nausea, vomiting, diarrhea Pulmonary: Denied any shortness of breath cough Neurologic denied any new focal deficits All inpatient medications were reviewed and appropriate changes in these medications as dictated in the interval history and assessment and plan. PHYSICAL EXAMINATION: GENERAL: The patient is alert and oriented x3, not in any acute distress. Well developed, well nourished. HEENT: Pupils are round and equally reacting to light. EOMI. No scleral icterus. No conjunctival pallor. Normocephalic, atraumatic. No pharyngeal erythema. No thyromegaly. CARDIOVASCULAR: S1 and S2 present. No murmurs, rubs, or gallops. PULMONARY: Chest is clear to auscultation, no wheezing or crackles. ABDOMEN: Soft, nontender, nondistended, normoactive bowel sounds. No palpable organomegaly. MUSCULOSKELETAL: No joint swelling or deformity. EXTREMITIES: No cyanosis, clubbing, or pedal edema. NEUROLOGICAL: Gross neurological examination did not reveal any focal deficits. SKIN: No rashes. Packed wound to the left AC with purulent drainage. Assessment and Plan Infected abscess and cellulitis to the right forearm from IV drug use cultures growing MRSA History of asthma History of seizure disorder on IV Keppra History of polysubstance abuse and IV drug use. Gi prophylaxis Full Code Plan Add IV toradol and continue current pain regimen. Continue IV antibiotics while in the hospital Oral antibiotics on discharge Continue local wound care Discharge in the next 24 hours The impression and plan of care has been dictated by Lyly Mtz, Nurse Practitioner as directed. Dr. Nicol MD I have performed a history and physical examination and medical decision making of this patient, discussed the same with the dictator, and agree with the dictators assessment and plan as written, documented as a scribe. Based on total visit time, I have performed more than 50% of this visit. Objective - Vital Signs Vital signs: Vital Signs Temp 97.9 F 05/16/24 07:46 Pulse 59 L 05/16/24 07:46 Resp 17 05/16/24 07:46 BP 100/62 05/16/24 07:46 Pulse Ox 99 05/16/24 07:46 FiO2 Intake & Output 05/15/24 05/16/24 05/16/24 18:59 06:59 18:59 Intake Total 1580 Balance 1580 Intake: Intake, IV Titration 500 Amount Vancomycin 1,000 mg In 500 Sodium Chloride 0.9% 250 ml @ 125 mls/hr IVPB Q8H [facility] Rx#:[id number] Oral 1080 Other: Voiding Method Toilet # Voids 2 1 - Labs CBC & Chem 7: 05/15/24 05:38 05/16/24 07:23 Labs: Abnormal Lab Results - Last 24 Hours (Table) 05/15/24 Range/Units 05:38 RBC 3.48 L (4.10-5.20) X 10*6/uL Hgb 10.0 L (12.0-15.0) g/dL Hct 32.2 L (37.2-46.3) % MCHC 31.1 L (32.0-37.0) g/dL Immature Gran # 0.05 H (0.00-0.04) X 10*3/uL Neutrophils # 8.20 H (1.80-7.70) X 10*3/uL Monocytes # 0.14 L (0.20-1.00) X 10*3/uL Eosinophils # 0 L (0.04-0.35) X 10*3/uL Microbiology - Last 24 Hours (Table) 05/12/24 18:46 Anaerobic Culture - Preliminary Arm - Right 05/12/24 18:46 Anaerobic Culture - Preliminary Arm - Right 05/12/24 18:46 Gram Stain - Final Arm - Right Wound Culture - Final Methicillin resist S. aureus 05/12/24 18:46 Gram Stain - Final Arm - Right Wound Culture - Final Methicillin resist S. aureus 05/12/24 02:00 Blood Culture - Preliminary Blood 05/12/24 13:57 Gram Stain - Final Elbow - Right Wound Culture - Final Methicillin resist S. aureus Assessment and Plan Time with Patient: Less than 30
--- NOTE | 2024-05-16 15:02 | P.PN ---
Subjective Progress Note Date: 05/16/24 Principal diagnosis: Reason for follow-up is right upper extremity abscess cellulitis Patient is a 29-year-old female with a past medical history significant for asthma seizure disorder history of IV drug use presenting to the hospital with right arm abscess and cellulitis status post drainage by vascular surgery culture with MRSA. On today's evaluation that is 05/16/2024, Patient is afebrile patient is currently on room air and denies having any shortness of breath, the patient denies any chest pain or cough, the patient denies any nausea vomiting did not have any abdominal pain and no diarrhea still complaining of pain to the right elbow area but no worsening. Patient white count of 9.37 creatinine 0.84 Vanco trough is 22.8 Objective - Vital Signs Vital signs: Vital Signs Temp 98.2 F 05/16/24 12:58 Pulse 53 L 05/16/24 12:58 Resp 17 05/16/24 12:58 BP 90/53 05/16/24 12:58 Pulse Ox 97 05/16/24 12:58 FiO2 Intake & Output 05/15/24 05/16/24 05/16/24 18:59 06:59 18:59 Intake Total 1580 Balance 1580 Intake: Intake, IV Titration 500 Amount Vancomycin 1,000 mg In 500 Sodium Chloride 0.9% 250 ml @ 125 mls/hr IVPB Q8H [facility] Rx#:[id number] Oral 1080 Other: Voiding Method Toilet # Voids 2 1 - Exam GENERAL DESCRIPTION: Middle-age female lying in bed in no distress RESPIRATORY SYSTEM: Unlabored breathing , decreased breath sounds at bases HEART: S1 S2 regular rate and rhythm , ABDOMEN: Soft , no tenderness EXTREMITIES: Right elbow wound is currently dressed - Labs CBC & Chem 7: 05/15/24 05:38 05/16/24 07:23 Labs: Microbiology - Last 24 Hours (Table) 05/12/24 13:57 Anaerobic Culture - Final Elbow - Right 05/12/24 18:46 Anaerobic Culture - Preliminary Arm - Right 05/12/24 18:46 Anaerobic Culture - Preliminary Arm - Right 05/12/24 18:46 Gram Stain - Final Arm - Right Wound Culture - Final Methicillin resist S. aureus 05/12/24 18:46 Gram Stain - Final Arm - Right Wound Culture - Final Methicillin resist S. aureus 05/12/24 02:00 Blood Culture - Preliminary Blood Assessment and Plan (1) Allergy to multiple antibiotics Current Visit: Yes Status: Acute Code(s): Z88.1 - ALLERGY STATUS TO OTHER ANTIBIOTIC AGENTS SNOMED Code(s): 661404465 (2) Abscess of right arm Current Visit: Yes Status: Acute Code(s): L02.413 - CUTANEOUS ABSCESS OF RIGHT UPPER LIMB SNOMED Code(s): 24428145821074964 (3) Right arm cellulitis Current Visit: Yes Status: Acute Code(s): L03.113 - CELLULITIS OF RIGHT UPPER LIMB SNOMED Code(s): 09694986594624261 Plan: 1patient presented to hospital with right elbow injury pain swelling redness from injection drug use patient has been diagnosed with an abscess that has been surgically drained culture now showing preserved MRSA blood culture has been negative so far. 2patient with multiple antibiotic ALLERGIES that would limit the number of antibiotic safe to use 3patient culture has been finalized with MRSA blood culture has been negative 4patient is being treated with the vancomycin pharmacy to dose it does need to be adjusted to keep the trough around 15 plan is for oral doxycycline on discharge this was discussed with [employer] for covering admitting team yesterday Dictation was produced using [employer] dictation software. please excuse any grammatical, word or spelling errors. Time with Patient: Less than 30
--- NOTE | 2024-05-16 17:12 | P.PN ---
Progress Note - Text 29-year-old white female history of abscess right cubital fossa had I&D and debridement today will change the dressing no drainage were noted patient is an IV antibiotic under care of infectious disease change the dressing is extra silver rope brachial radial pulses present Plan is patient will go home tomorrow and I will see her in my office on Friday at noon
[2024-05-16] MEDS: VANCOMYCIN 1,000 MG in SODIUM CHLORIDE 0.9% 250 ML IVPB SCH (18:28)
[2024-05-17 06:15] LABS: African American GFR (CKD) >90 (>60 ml/min/1.73 sqM); Anion Gap 3 mmol/L; Blood Urea Nitrogen 18 mg/dL (7-17); Calcium 7.9 mg/dL (8.4-10.2); Carbon Dioxide 23 mmol/L (22-30); Chloride 111 mmol/L (98-107); Glucose 102 mg/dL (74-99); Non-African American GFR(CKD) >90 (>60 ml/min/1.73 sqM); Sodium 137 mmol/L (137-145)
[2024-05-17 19:52] VITALS: RESP 16
[2024-05-18 06:21] LABS: African American GFR (CKD) >90 (>60 ml/min/1.73 sqM); Non-African American GFR(CKD) >90 (>60 ml/min/1.73 sqM)
[2024-05-18 12:19] VITALS: BP 110/69; PULSE 59; TEMP 98.4
--- NOTE | 2024-05-18 13:14 | P.PN ---
Subjective Progress Note Date: 05/18/24 Principal diagnosis: Reason for follow-up is right upper extremity abscess cellulitis Patient is a 29-year-old female with a past medical history significant for asthma seizure disorder history of IV drug use presenting to the hospital with right arm abscess and cellulitis status post drainage by vascular surgery culture with MRSA. On today's evaluation that is 05/18/2024, Patient is afebrile this morning patient denies having any chest pain shortness of breath or cough, the patient is currently on room air, patient denies any abdominal pain no diarrhea no nausea no vomiting, the patient pain to the right arm elbow area has decreased in intensity. Patient did have a creatinine 0.86 Vanco trough is 15.2 Objective - Vital Signs Vital signs: Vital Signs Temp 98.4 F 05/18/24 11:40 Pulse 59 L 05/18/24 11:40 Resp 16 05/18/24 11:40 BP 110/69 05/18/24 11:40 Pulse Ox 98 05/18/24 11:40 FiO2 Intake & Output 05/17/24 05/18/24 05/18/24 18:59 06:59 18:59 Intake Total 1320 118 Balance 1320 118 Intake: Oral 1320 118 Other: Voiding Method Toilet # Voids 3 1 - Exam GENERAL DESCRIPTION: Middle-age female lying in bed in no distress RESPIRATORY SYSTEM: Unlabored breathing , decreased breath sounds at bases HEART: S1 S2 regular rate and rhythm , ABDOMEN: Soft , no tenderness EXTREMITIES: Right elbow wound is currently dressed - Labs CBC & Chem 7: 05/15/24 05:38 05/18/24 05:45 Labs: Microbiology - Last 24 Hours (Table) 05/12/24 02:00 Blood Culture - Final Blood 05/12/24 18:46 Anaerobic Culture - Final Arm - Right 05/12/24 18:46 Anaerobic Culture - Final Arm - Right Assessment and Plan (1) Allergy to multiple antibiotics Status: Acute Code(s): Z88.1 - ALLERGY STATUS TO OTHER ANTIBIOTIC AGENTS SNOMED Code(s): 588523746 (2) Abscess of right arm Status: Acute Code(s): L02.413 - CUTANEOUS ABSCESS OF RIGHT UPPER LIMB SNOMED Code(s): 85010412618899863 (3) Right arm cellulitis Status: Acute Code(s): L03.113 - CELLULITIS OF RIGHT UPPER LIMB SNOMED Code(s): 68759845920933095 Plan: 1patient presented to hospital with right elbow injury pain swelling redness from injection drug use patient has been diagnosed with an abscess that has been surgically drained culture now showing preserved MRSA blood culture has been negative so far. 2patient with multiple antibiotic ALLERGIES that would limit the number of antibiotic safe to use 3patient culture has been finalized with MRSA blood culture has been negative 4patient has shown clinical improvement the patient blood culture remains to be negative patient will finish therapy with a 10-day course of oral doxycycline local wound care to continue per the vascular surgeon Dictation was produced using [employer] dictation software. please excuse any grammatical, word or spelling errors. Time with Patient: Less than 30
--- NOTE | 2024-05-18 13:14 | P.PN ---
Subjective Progress Note Date: 05/17/24 Principal diagnosis: Reason for follow-up is right upper extremity abscess cellulitis Patient is a 29-year-old female with a past medical history significant for asthma seizure disorder history of IV drug use presenting to the hospital with right arm abscess and cellulitis status post drainage by vascular surgery culture with MRSA. On today's evaluation that is 05/17/2024, patient has been afebrile, patient is breathing comfortably and is currently on room air, patient denies having any significant cough no chest pain, patient denies nausea vomiting or diarrhea and no abdominal pain patient pain to the right elbow area has decreased in intensity. Patient did have a creatinine 0.83, Vanco trough of 22.8 as of yesterday, no CBC was done today blood culture remains to be negative Objective - Vital Signs Vital signs: Vital Signs Temp 97.9 F 05/17/24 13:57 Pulse 67 05/17/24 13:57 Resp 18 05/17/24 13:57 BP 96/60 05/17/24 13:57 Pulse Ox 98 05/17/24 13:57 FiO2 Intake & Output 05/16/24 05/17/24 05/17/24 18:59 06:59 18:59 Intake Total 1080 Balance 1080 Intake: Oral 1080 Other: Voiding Method Toilet # Voids 3 1 - Exam GENERAL DESCRIPTION: Middle-age female lying in bed in no distress RESPIRATORY SYSTEM: Unlabored breathing , decreased breath sounds at bases HEART: S1 S2 regular rate and rhythm , ABDOMEN: Soft , no tenderness EXTREMITIES: Right elbow wound is currently dressed - Labs CBC & Chem 7: 05/15/24 05:38 05/18/24 05:45 Labs: Abnormal Lab Results - Last 24 Hours (Table) 05/17/24 Range/Units 05:14 Chloride 111 H (98-107) mmol/L BUN 18 H (7-17) mg/dL Glucose 102 H (74-99) mg/dL Calcium 7.9 L (8.4-10.2) mg/dL Microbiology - Last 24 Hours (Table) 05/12/24 02:00 Blood Culture - Final Blood 05/12/24 18:46 Anaerobic Culture - Final Arm - Right 05/12/24 18:46 Anaerobic Culture - Final Arm - Right 05/12/24 13:57 Anaerobic Culture - Final Elbow - Right Assessment and Plan (1) Allergy to multiple antibiotics Status: Acute Code(s): Z88.1 - ALLERGY STATUS TO OTHER ANTIBIOTIC AGENTS SNOMED Code(s): 966524139 (2) Abscess of right arm Status: Acute Code(s): L02.413 - CUTANEOUS ABSCESS OF RIGHT UPPER LIMB SNOMED Code(s): 18279094953700546 (3) Right arm cellulitis Status: Acute Code(s): L03.113 - CELLULITIS OF RIGHT UPPER LIMB SNOMED Code(s): 17981675093343515 Plan: 1patient presented to hospital with right elbow injury pain swelling redness from injection drug use patient has been diagnosed with an abscess that has been surgically drained culture now showing preserved MRSA blood culture has been negative so far. 2patient with multiple antibiotic ALLERGIES that would limit the number of antibiotic safe to use 3patient culture has been finalized with MRSA blood culture has been negative 4patient seem to have shown clinical improvement with vancomycin pharmacy to dose, dose need to be just to get the trough around 15 finishing therapy with the oral Doxy Dictation was produced using [email or web address] dictation software. please excuse any grammatical, word or spelling errors. Time with Patient: Less than 30
[2024-05-18] MEDS ORDERED: DOXYCYCLINE 100 MG CAP PO SCH (21:00)
[2024-05-18] MEDS ORDERED: ETODOLAC 400 MG TAB PO SCH (21:00)
--- NOTE | 2024-05-19 01:46 | DS ---
DISCHARGE SUMMARY CHIEF COMPLAINT: Abscess in the right arm. HISTORY OF PRESENT ILLNESS AND PHYSICAL EXAMINATION: Details of this lady's History and Physical can be found in the initial workup. LABORATORY STUDIES: While she is in the hospital, she had laboratory studies, details of which can be found in the laboratory section of her chart. COURSE IN HOSPITAL: After admission, she was placed on bedrest, started on intravenous fluids, and she was seen by Infectious Disease and Surgery. The wound was debrided by Surgery. She was positive for MRSA and she was treated with vancomycin. Wound was cleaning up and she was doing well, and it was felt that she could be discharged on the on doxycycline 100 mg twice a day and she will be followed up in the office. She will also be seen by surgery. FINAL DIAGNOSES: 1. Methicillin-resistant Staphylococcus aureus abscess of the right arm. 2. Longstanding history of drug addiction. OPERATIONS: Incision and drainage of abscess. CONSULTATIONS: Surgery and Infectious Disease. MMODL / DAVIDN: [id number] /
--- NOTE | 2024-05-20 07:40 | PN ---
PROGRESS NOTE DATE OF SERVICE: 05/17/2024 CHIEF COMPLAINT: MRSA abscess of the right arm. HISTORY OF PRESENT ILLNESS: This lady has been doing well. There has been no interval change. Dressings are being changed, and she is maintained on vancomycin. PHYSICAL EXAMINATION: CHEST: Clear. CARDIAC: Exam is normal. ABDOMEN: Soft, nontender. IMPRESSION: MRSA abscess of the right arm and elbow. PLAN: Continue with local wound care and IV antibiotics. MMODL / IJN: [id number] /
--- NOTE | 2024-05-21 02:01 | CONS ---
CONSULTATION HISTORY OF PRESENT ILLNESS: This is a 29-year-old white female, I was consulted. The patient developed abscess and cellulitis of the right forearm and the elbow. This patient has history of drug abuse in the past. The patient had a fever and her white cell count was 15,300. She is very lethargic. PAST MEDICAL HISTORY: No history of diabetes, hypertension. PHYSICAL EXAMINATION: NECK: Supple. Trachea central. CHEST: Clear to auscultation. HEART: First and second sounds present. ABDOMEN: Soft, nontender. VASCULAR: Brachial and radial pulses are present. Right elbow has a marked redness and tenderness. There is opening with some drainage of the pus. PLAN: We will keep the patient n.p.o. and the patient is scheduled to have I and D and debridement of the right elbow abscess. Risks and complications discussed. MMODL / IJN: [id number] /
--- NOTE | 2024-05-21 16:49 | CDI ---
Documentation Clarification Form Date: 05/21/2024 From: Tanesha Burch Contact via [employer] Email: [email or web address] Admit Date: 05/12/2024 01:07:00 AM Patient Name: Irina Simpson Visit Number: [id number] Discharge Date: 05/18/2024 12:30:00 PM ATTENTION: The Clinical Documentation Specialists (CDI) and [facility] Coding Staff appreciate your assistance in clarifying documentation. Please respond to the clarification below the line at the bottom and electronically sign. The CDI & [facility] Coding staff will review the response and follow-up if needed. Please note: Queries are made part of the Legal Health Record. If you have any questions, please contact the author of this message via ITS. Doctor/Provider: Eugene Romero The patient has [insert documentation with location and date]. Based on this information and the findings below, is there an additional diagnosis that is clinically appropriate for this patient? History/Risk Factors: 29yo w/ a h/o IVDA presented with an abscess and cellulitis in the R arm at an injection site. Clinical Indicators: H&P 05/13 noted the pt had a fever of 100.1 and was lethargic probably from the drugs she has taken WBC 05/11: 15.3 Wound culture 05/12: MRSA Blood cultures: 05/12: no growth at 5 days Vitals signs 05/11 @ 2130: 98.4, 118, 18, 118/78, 99% on RA Treatment: I&D 05/12, Vanco IV, IV fluid, d/c home w/ doxy po Is there an additional diagnosis that is clinically appropriate for this patient? [ ] Sepsis 2nd to cellulitis/abscess [ ] No additional diagnosis/not clinically significant [ ] Other, please specify [ ] Unable to determine SIRS Criteria: 2 or more of the following may indicate SIRS Temperature < 96.8F (36C) or > 101.0F (38.3C) Heart Rate > 90 bpm Respiratory Rate > 20 breaths/min or PaCO2 < 32 mmHg White Blood Cell Count > 12,000 or < 4,000 cells/mm3 or > 10% bands (Template Last Reviewed: June 2022) MTDD
== END 2024-05-18 12:30 | disposition home or self-care (01) | DRG 721 ==
LOC: EC 19:32 → 5NMEDONC 05-12 01:07
PROVIDERS: ADMIT Family Medicine; ATTEND Family Medicine
PROC: 0JBG0ZZ Excision of Right Lower Arm Subcutaneous Tissue and Fascia, Open Approach (ICD-10-PCS; principal; 2024-05-12 17:43)
DX: T80.29XA Infection following other infusion, transfusion and therapeutic injection, initial encounter (principal); L03.113 Cellulitis of right upper limb; L02.413 Cutaneous abscess of right upper limb; B95.62 Methicillin resistant Staphylococcus aureus infection as the cause of diseases classified elsewhere; F11.20 Opioid dependence, uncomplicated; J45.909 Unspecified asthma, uncomplicated; F17.200 Nicotine dependence, unspecified, uncomplicated; M79.89 Other specified soft tissue disorders; G40.909 Epilepsy, unspecified, not intractable, without status epilepticus; Z88.5 Allergy status to narcotic agent; Z88.1 Allergy status to other antibiotic agents; Z88.0 Allergy status to penicillin; Z88.2 Allergy status to sulfonamides
CPT/HCPCS: 36415; 80048; 80053; 80202; 80306; 81025; 82565; 83605; 85025; 85652; 86140; 87040; 87070; 87075; 87077; 87186; 87205; 96365; 96366; 96375; 99284